=== PATIENT | male | born 1950 | race African-American/Black ===

== ENCOUNTER → 2016-06-21 | Outpatient (CLI) | payer MEDICARE, MEDICAID ==
[2016-06-21 09:41] LABS: HEMATOCRIT 41.5 % (37.9-51.0); HEMOGLOBIN 13.5 g/dL (13.5-17.0); MEAN CORPUSCULAR HEMOGLOBIN 26.7 pg (27.0-33.4); MEAN CORPUSCULAR HGB CONC 32.5 g/dL (32.0-36.0); MEAN CORPUSCULAR VOLUME 82 fl (80-97); RED BLOOD COUNT 5.04 10^6/uL (4.35-5.55); RED CELL DISTRIBUTION WIDTH 14.8 % (11.5-14.0); WHITE BLOOD COUNT 6.2 10^3/uL (4.0-10.5)
[2016-06-21 10:04] LABS: ALBUMIN 4.3 g/dL (3.5-5.0); ANION GAP 14 (5-19); BLOOD UREA NITROGEN 21 mg/dL (7-20); CALCIUM 10.2 mg/dL (8.4-10.2); CARBON DIOXIDE 22 mmol/L (22-30); CHLORIDE 107 mmol/L (98-107); CREATININE RESULT 1.34 mg/dL (0.52-1.25); GLUCOSE 116 mg/dL (75-110); PHOSPHORUS 4.7 mg/dL (2.5-4.5); POTASSIUM 4.4 mmol/L (3.6-5.0); SODIUM 142.6 mmol/L (137-145)
== END ==
LOC: OD 08:42
PROVIDERS: ATTEND Internal Medicine Nephrology
DX: Z94.0 Kidney transplant status (principal); I10 Essential (primary) hypertension; Z79.899 Other long term (current) drug therapy
CPT/HCPCS: 36415; 80069; 80158; 85027

== ENCOUNTER → 2016-10-04 | Outpatient (CLI) | payer MEDICARE, MEDICAID ==
[2016-10-04 11:16] LABS: HEMATOCRIT 38.4 % (37.9-51.0); HEMOGLOBIN 12.3 g/dL (13.5-17.0); HGB HCT DIFFERENCE -1.5; MEAN CORPUSCULAR HEMOGLOBIN 26.2 pg (27.0-33.4); MEAN CORPUSCULAR HGB CONC 31.9 g/dL (32.0-36.0); MEAN CORPUSCULAR VOLUME 82 fl (80-97); RED BLOOD COUNT 4.68 10^6/uL (4.35-5.55); RED CELL DISTRIBUTION WIDTH 15.2 % (11.5-14.0); WHITE BLOOD COUNT 7.1 10^3/uL (4.0-10.5)
[2016-10-04 11:31] LABS: ALBUMIN 4.2 g/dL (3.5-5.0); ANION GAP 12 (5-19); BLOOD UREA NITROGEN 21 mg/dL (7-20); CALCIUM 10.1 mg/dL (8.4-10.2); CARBON DIOXIDE 21 mmol/L (22-30); CHLORIDE 110 mmol/L (98-107); CREATININE RESULT 1.47 mg/dL (0.52-1.25); GLUCOSE 126 mg/dL (75-110); PHOSPHORUS 4.5 mg/dL (2.5-4.5); POTASSIUM 4.6 mmol/L (3.6-5.0); SODIUM 143.1 mmol/L (137-145)
== END ==
LOC: OD 09:56
PROVIDERS: ATTEND Internal Medicine Nephrology
DX: Z94.0 Kidney transplant status (principal); I10 Essential (primary) hypertension; Z79.899 Other long term (current) drug therapy
CPT/HCPCS: 36415; 80069; 80158; 85027

== ENCOUNTER → 2016-11-05 | Outpatient (CLI) | payer MEDICARE, MEDICAID ==
[2016-11-05 10:45] LABS: ANION GAP 14 (5-19); BLOOD UREA NITROGEN 23 mg/dL (7-20); CALCIUM 10.4 mg/dL (8.4-10.2); CARBON DIOXIDE 17 mmol/L (22-30); CHLORIDE 114 mmol/L (98-107); CREATININE RESULT 2.17 mg/dL (0.52-1.25); GLUCOSE 119 mg/dL (75-110); MAGNESIUM 1.9 mg/dL (1.6-2.3); POTASSIUM 5.3 mmol/L (3.6-5.0); SODIUM 144.9 mmol/L (137-145)
[2016-11-05 11:09] LABS: URINE CREATININE 37.3 mg/dL (22-328); URINE PROTEIN 19.6 mg/dL (<12)
== END ==
LOC: OD 09:31
PROVIDERS: ATTEND Internal Medicine Nephrology
DX: I12.9 Hypertensive chronic kidney disease with stage 1 through stage 4 chronic kidney disease, or unspecified chronic kidney disease (principal); N18.3 Chronic kidney disease, stage 3 (moderate); Z94.0 Kidney transplant status
CPT/HCPCS: 36415; 80048; 82570; 83735; 84156

== ENCOUNTER → 2016-11-22 | Outpatient (CLI) | payer MEDICARE, MEDICAID ==
[2016-11-22 10:48] LABS: URINE CREATININE 56.2 mg/dL (22-328); URINE PROTEIN 42.7 mg/dL (<12)
--- NOTE | 2016-11-22 16:18 | RADIOLOGY REPORT (SQ) ---
EXAM DESCRIPTION: U/S RETROPERITON (RENAL/AORTA) COMPLETED DATE/TIME: 11/22/2016 3:18 pm REASON FOR STUDY: KIDNEY TRANSPLANT STATUS Z94.0 KIDNEY TRANSPLANT STATUS N18.3 CHRONIC KIDNEY DIS EASE, STAGE 3 (MODERATE) COMPARISON: None. TECHNIQUE: Dynamic and static grayscale images acquired of the kidneys and bladder and recorded on P ACS. Additional selected color Doppler and spectral images recorded. LIMITATIONS: None. FINDINGS: RIGHT KIDNEY: 7.9 cm. Multiple cysts. The largest measures 33 mm. LEFT KIDNEY: 16 cm. Multiple cysts. BLADDER: The urinary bladder is distended, measuring 13 by 16 x 11 cm. The postvoid bladder was unch anged. OTHER FINDINGS: There is a transplanted kidney in the left side of the pelvis with normal arterial bl ood flow. There is pelvicaliectasis both before and after attempted voiding. IMPRESSION: 1. Polycystic kidney disease in the [place] kidneys. 2. Transplant kidney shows normal blood flow. There is pelvicaliectasis felt to be secondary to the marked bladder distention. 3. The bladder was distended and shows no change after an attempt to void. TECHNICAL DOCUMENTATION: JOB ID: [id number] [employer]- All Rights Reserved
== END ==
LOC: RAD 08:56
PROVIDERS: ATTEND Internal Medicine Nephrology
DX: Z94.0 Kidney transplant status (principal); N18.3 Chronic kidney disease, stage 3 (moderate)
CPT/HCPCS: 76770; 82570; 84156

== ENCOUNTER → 2017-01-24 | Outpatient (CLI) | payer MEDICARE, MEDICAID ==
[2017-01-24 09:41] LABS: ABSOLUTE MONOCYTES (AUTO) 0.4 10^3/uL (0.1-1.4); ABSOLUTE NEUT (AUTO) 4.2 10^3/uL (1.7-8.2); BASOPHILS % (AUTO) 0.3 % (0-2); EOSINOPHILS % (AUTO) 0.6 % (0-6); HEMATOCRIT 34.7 % (37.9-51.0); HEMOGLOBIN 11.3 g/dL (13.5-17.0); HGB HCT DIFFERENCE -0.8; LYMPHOCYTES % (AUTO) 17.9 % (13-45); MEAN CORPUSCULAR HGB CONC 32.6 g/dL (32.0-36.0); MEAN CORPUSCULAR VOLUME 83 fl (80-97); MONOCYTES % (AUTO) 6.6 % (3-13); RED BLOOD COUNT 4.19 10^6/uL (4.35-5.55); RED CELL DISTRIBUTION WIDTH 16.4 % (11.5-14.0); SEGMENTED NEUTROPHILS % (AUTO) 74.6 % (42-78); WHITE BLOOD COUNT 5.6 10^3/uL (4.0-10.5)
[2017-01-24 10:08] LABS: ALANINE AMINOTRANSFERASE 16 U/L (21-72); ALBUMIN 4.3 g/dL (3.5-5.0); ALKALINE PHOSPHATASE 65 U/L (38-126); ANION GAP 14 (5-19); ASPARTATE AMINO TRANSFERASE 18 U/L (17-59); BILIRUBIN,DIRECT 0.4 mg/dL (0.0-0.4); BILIRUBIN,TOTAL 0.7 mg/dL (0.2-1.3); BLOOD UREA NITROGEN 24 mg/dL (7-20); CALCIUM 10.3 mg/dL (8.4-10.2); CARBON DIOXIDE 20 mmol/L (22-30); CHLORIDE 111 mmol/L (98-107); CHOLESTEROL 149.84 mg/dL (0-200); CREATININE RESULT 1.53 mg/dL (0.52-1.25); Direct HDL 61 mg/dL (>40); GLUCOSE 102 mg/dL (75-110); MAGNESIUM 1.8 mg/dL (1.6-2.3); POTASSIUM 4.8 mmol/L (3.6-5.0); TOTAL PROTEIN 7.3 g/dL (6.3-8.2); TRIGLYCERIDES 86 mg/dL (<150)
[2017-01-24 10:20] LABS: DIRECT LDL 62 mg/dL (<100)
== END ==
LOC: OD 08:30
PROVIDERS: ATTEND Family Medicine Geriatric Medicine
DX: I10 Essential (primary) hypertension (principal); N19 Unspecified kidney failure; E78.5 Hyperlipidemia, unspecified; Z79.899 Other long term (current) drug therapy; Z94.0 Kidney transplant status
CPT/HCPCS: 36415; 80053; 80061; 82306; 83735; 84443; 85025

== ENCOUNTER 2017-03-08 09:15 | Observation (INO) | payer MEDICARE, MEDICAID ==
--- NOTE | 2017-03-08 09:51 | ER Document Report ---
ED Hand/Wrist Injury - General Chief Complaint: Hand Pain Stated Complaint: FALL/HAND INJURY Time Seen by Provider: 03/08/17 09:32 Mode of Arrival: Ambulatory Information source: Patient Notes: 66-year-old male presents to ED for redness and swelling to the right hand, swelling to the right elbow, and a history of a fall about 10-11 days ago when he landed on his elbow. He states he has not been to the doctor since he fell. States he has been taken Tylenol with no relief. He does have a history of renal failure polycystic kidney disease he was on dialysis until he had a kidney transplant. He is also had 2 fractured hips with a left hip replacement and neuropathy. TRAVEL OUTSIDE OF THE [place] IN LAST 30 DAYS: No - HPI Injury to: Arm, Elbow, Hand Onset: Other - 1-1/2 weeks Where: Home Timing: Worse Severity: Severe Pain Level: 5 Context: Fall, Swelling - Related Data Allergies/Adverse Reactions: povidone-iodine [From Betadine] Adverse Reaction (Verified 03/08/17 09:52) soap [From Betadine] Adverse Reaction (Verified 03/08/17 09:52) Home Medications: Current Home Medications Atorvastatin Calcium [Lipitor 20 mg Tablet] 20 mg PO QHS 03/08/17 [History] Benazepril HCl [Lotensin 20 mg Tablet] 20 mg PO Q12 03/08/17 [History] Clonidine HCl [Catapres 0.3 mg Tablet] 0.3 mg PO Q12 03/08/17 [History] Cyclosporine, Modified [Cyclosporine Modified] 25 mg PO DAILY 03/08/17 [History] Cyclosporine, Modified [Cyclosporine Modified] 100 mg PO Q12 03/08/17 [History] Multivitamin [Tab-A-Vilma (Multiple Vitamin) Tablet] 1 tab PO DAILY 03/08/17 [ History] Mycophenolate Mofetil [Cellcept 250 mg Capsule] 1,000 mg PO Q12 03/08/17 [ History] Nifedipine [Nifedipine ER] 60 mg PO Q12 03/08/17 [History] Potassium Chloride [Klor-Con 10 Meq Tablet.sa] 40 meq PO Q12 03/08/17 [History] Prednisone [Deltasone 5 mg Tablet] 5 mg PO DAILY 03/08/17 [History] Past Medical History - General Information source: Patient - Social History Smoking Status: Former Smoker Cigarette use (# per day): No Chew tobacco use (# tins/day): No Smoking Education Provided: No Frequency of alcohol use: None Drug Abuse: None Lives with: Alone Family History: Arthritis, CAD, Hyperlipidemia, Hypertension, Malignancy. denies: COPD, CVA, DM, Thyroid Disfunction Patient has suicidal ideation: No Patient has homicidal ideation: No - Past Medical History Cardiac Medical History: Reports: Hx Hypercholesterolemia, Hx Hypertension Pulmonary Medical History: Reports: None EENT Medical History: Reports: None Neurological Medical History: Reports: Other - Peripheral neuropathy Endocrine Medical History: Reports: None Renal/ Medical History: Reports: Hx End Stage Renal Disease, Other - Polycystic kidney disease, kidney transplant Malignancy Medical History: Reports None GI Medical History: Reports: Hx Gastroesophageal Reflux Disease, Hx Hiatal Hernia Musculoskeltal Medical History: Reports Hx Arthritis, Reports Hx Musculoskeletal Deformity, Reports Hx Musculoskeletal Trauma Skin Medical History: Reports None Psychiatric Medical History: Reports: None Traumatic Medical History: Reports: Hx Fractures - Bilateral hips right hand and skull Infectious Medical History: Reports: None Past Surgical History: Reports: Hx Inguinal Hernia - Bilateral at different times, Hx Kidney (Renal Surgery) - TRANSPLANT, Hx Vascular Surgery - Dialysis shunt and fistula before his kidney transplant - Immunizations Hx Diphtheria, Pertussis, Tetanus Vaccination: Yes Review of Systems - Review of Systems Constitutional: No symptoms reported EENT: No symptoms reported Cardiovascular: No symptoms reported Respiratory: No symptoms reported Gastrointestinal: No symptoms reported Genitourinary: No symptoms reported Male Genitourinary: No symptoms reported Musculoskeletal: Other - Right arm elbow and hand swollen right hand red and warm Skin: Other - Right hand red swollen warm Hematologic/Lymphatic: No symptoms reported Neurological/Psychological: No symptoms reported Physical Exam - Vital signs Vitals: Temp Pulse Resp BP Pulse Ox 97.7 F 115 H 18 169/91 H 98 03/08/17 09:20 03/08/17 09:20 03/08/17 09:20 03/08/17 09:20 03/08/17 09:20 Interpretation: Normal - General General appearance: Appears well, Alert - HEENT Head: Normocephalic, Atraumatic Eyes: Normal Pupils: PERRL - Respiratory Respiratory status: No respiratory distress Chest status: Nontender Breath sounds: Normal Chest palpation: Normal - Cardiovascular Rhythm: Regular Heart sounds: Normal auscultation Murmur: No - Abdominal Inspection: Normal Distension: No distension Bowel sounds: Normal Tenderness: Nontender Organomegaly: No organomegaly - Back Back: Normal, Nontender - Extremities General lower extremity: Normal inspection, Nontender, Normal color, Normal ROM , Normal temperature, Normal weight bearing. No: Saranya's sign Elbow: Tender, Other - Edema Forearm: Tender, Other - Edema Wrist: Tender, Other - Edema Hand: Tender, Ecchymosis, No evidence of human bite, No evidence of FB, Swelling , Other - Erythema and warmth - Neurological Neuro grossly intact: Yes Cognition: Normal Orientation: AAOx4 [place] Coma Scale Eye Opening: Spontaneous [place] Coma Scale Verbal: Oriented [place] Coma Scale Motor: Obeys Commands [place] Coma Scale Total: 15 Speech: Normal Motor strength normal: LUE, RUE, LLE, RLE Sensory: Normal - Psychological Associated symptoms: Normal affect, Normal mood - Skin Skin Temperature: Warm Skin Moisture: Dry Skin Color: Normal Course - Re-evaluation Re-evalutation: 03/08/17 14:[address] Proctor for admission due to hyperkalemia. He requested that the patient's humanities instructor be consulted before he admits them as we do not have nephrology button cutting machine operator. 03/08/17 14:[address] Marc Hurd nephrology and [place] who stated that the patient would be fine to be admitted to [place] as long as he was kept on his medications that he currently takes except for the potassium. Patient has been instructed to stop the potassium. Consulted Dr. carpio for admissions for hyperkalemia. She will evaluate the patient. Patient's humanities instructor was requested to send a list of patient's current medications for use in the hospital. He agreed to fax a copy to the hospital and he was given the fax # [phone]. - Vital Signs Vital signs: Temp Pulse Resp BP Pulse Ox 97.7 F 115 H 22 H 173/104 H 99 03/08/17 09:20 03/08/17 09:20 03/08/17 17:02 03/08/17 17:02 03/08/17 17:02 - Laboratory Result Diagrams: 03/08/17 10:26 03/08/17 11:26 Laboratory results interpreted by me: 03/08/17 03/08/17 03/08/17 10:26 10:26 11:26 RBC 3.91 L Hgb 10.4 L Hct 32.4 L MCH 26.5 L RDW 14.7 H Seg Neuts % (Manual) 91 H Lymphocytes % (Manual) 4 L Abs Lymphs (Manual) 0.4 L Sodium 146.7 H Potassium 6.6 H* 7.1 H* Chloride 112 H BUN 26 H Creatinine 1.69 H Est GFR ( Amer) 49 L Est GFR (Non-Af Amer) 41 L Glucose 166 H POC Glucose Direct Bilirubin 0.5 H 03/08/17 13:51 RBC Hgb Hct MCH RDW Seg Neuts % (Manual) Lymphocytes % (Manual) Abs Lymphs (Manual) Sodium Potassium Chloride BUN Creatinine Est GFR ( Amer) Est GFR (Non-Af Amer) Glucose POC Glucose 62 L Direct Bilirubin - Consults [facility] Time consulted: 14:35 Reason for consultation: 03/08/17 14:35 hyperkalemia Consulted provider: will come to ER Discharge - Discharge Clinical Impression: Hyperkalemia Disposition: ADMITTED OBSERVATION Admitting Provider: Hospitalist - [facility] Unit Admitted: Telemetry
[2017-03-08] MEDS ORDERED: OXYCODONE-ACETAMINOPHEN 5-325 MG TABLET PO ONE (10:05)
--- NOTE | 2017-03-08 10:26 | RADIOLOGY REPORT (SQ) ---
EXAM DESCRIPTION: HAND RIGHT 3 VIEWS COMPLETED DATE/TIME: 03/08/2017 10:02 am REASON FOR STUDY: pain and swelling COMPARISON: None. EXAM PARAMETERS: NUMBER OF VIEWS: Three views. TECHNIQUE: AP, lateral and oblique radiographic images acquired of the right hand. LIMITATIONS: None. FINDINGS: MINERALIZATION: Normal. BONES: No acute fracture or dislocation. No worrisome bone lesions. JOINTS: No effusions. SOFT TISSUES: No soft tissue swelling. No foreign body. Vascular calcifications. Faint soft tissue calcifications. OTHER: No other significant finding. IMPRESSION: CHRONIC CHANGES. NO RADIOGRAPHIC EVIDENCE OF ACUTE INJURY. TECHNICAL DOCUMENTATION: JOB ID: [id number] [employer]- All Rights Reserved
--- NOTE | 2017-03-08 10:28 | RADIOLOGY REPORT (SQ) ---
EXAM DESCRIPTION: ELBOW RIGHT OVER 2 VIEWS COMPLETED DATE/TIME: 03/08/2017 10:02 am REASON FOR STUDY: pain and swelling COMPARISON: None. NUMBER OF VIEWS: Four views. TECHNIQUE: AP, lateral, and both oblique radiographic images acquired of the right elbow. LIMITATIONS: None. FINDINGS: MINERALIZATION: Normal. BONES: No acute fracture or dislocation. Degenerative changes with small osteophytes. Supracondylar spur. No worrisome bone lesions. JOINT: No effusion. SOFT TISSUES: No soft tissue swelling. No foreign body. Faint soft tissue calcifications. OTHER: No other significant finding. IMPRESSION: MILD CHRONIC CHANGES. NO RADIOGRAPHIC EVIDENCE OF ACUTE INJURY. TECHNICAL DOCUMENTATION: JOB ID: [id number] [employer]- All Rights Reserved
[2017-03-08 10:45] LABS: HEMATOCRIT 32.4 % (37.9-51.0); HEMOGLOBIN 10.4 g/dL (13.5-17.0); HGB HCT DIFFERENCE -1.2; MEAN CORPUSCULAR HEMOGLOBIN 26.5 pg (27.0-33.4); MEAN CORPUSCULAR HGB CONC 32.1 g/dL (32.0-36.0); MEAN CORPUSCULAR VOLUME 83 fl (80-97); RED BLOOD COUNT 3.91 10^6/uL (4.35-5.55); RED CELL DISTRIBUTION WIDTH 14.7 % (11.5-14.0); WHITE BLOOD COUNT 8.9 10^3/uL (4.0-10.5)
[2017-03-08 10:56] LABS: ANION GAP 13 (5-19); BLOOD UREA NITROGEN 26 mg/dL (7-20); CALCIUM 10.1 mg/dL (8.4-10.2); CARBON DIOXIDE 22 mmol/L (22-30); CHLORIDE 112 mmol/L (98-107); CREATININE RESULT 1.69 mg/dL (0.52-1.25); GLUCOSE 166 mg/dL (75-110); SODIUM 146.7 mmol/L (137-145); URIC ACID 6.3 mg/dL (3.5-8.5)
[2017-03-08 11:00] LABS: POTASSIUM 6.6 mmol/L (3.6-5.0)
[2017-03-08] MEDS ORDERED: SODIUM POLYSTYRENE SULFONATE 15 GM/60 ML PO ONE ×3 (11:05→19:05)
[2017-03-08 11:12] LABS: BASOPHILS % (MANUAL) 0 % (0-2); EOSINOPHILS % (MANUAL) 0 % (0-6); LYMPHOCYTES % (MANUAL) 4 % (13-45); TOTAL CELLS COUNTED 100
[2017-03-08 11:13] LABS: ANISOCYTOSIS SLIGHT; TOXIC GRANULATION 1+
[2017-03-08] MEDS ORDERED: NORMAL SALINE 1000 ML 1,000 ML IV ONE (11:28)
[2017-03-08 11:57] LABS: ALANINE AMINOTRANSFERASE 21 U/L (21-72); ALBUMIN 3.6 g/dL (3.5-5.0); ALKALINE PHOSPHATASE 58 U/L (38-126); ASPARTATE AMINO TRANSFERASE 31 U/L (17-59); BILIRUBIN,DIRECT 0.5 mg/dL (0.0-0.4); BILIRUBIN,TOTAL 0.5 mg/dL (0.2-1.3); CREATINE KINASE 68 U/L (55-170); TOTAL PROTEIN 7.1 g/dL (6.3-8.2)
[2017-03-08 12:01] LABS: POTASSIUM 7.1 mmol/L (3.6-5.0)
[2017-03-08] MEDS ORDERED: INSULIN REG, HUMAN 100 UNIT/ML 3 ML VIAL (PYX) IV ONE ×2 (12:04→19:05)
[2017-03-08] MEDS ORDERED: CALCIUM GLUCONATE 1000 MG/10 ML INJ IV ONE (12:04)
[2017-03-08] MEDS ORDERED: DEXTROSE 50%-WATER 25 GM/50 ML DISP.SYRIN IV ONE (12:04)
[2017-03-08 12:09] LABS: CREATINE KINASE MB 1.81 ng/mL (<4.55); TROPONIN I 0.022 ng/mL
[2017-03-08] MEDS ORDERED: 1/2 NORMAL SALINE 1,000 ML IV PRN (14:46)
[2017-03-08] MEDS ORDERED: ACETAMINOPHEN 325 MG TABLET PO PRN (15:31)
[2017-03-08] MEDS ORDERED: DEXTROSE 5%-1/2 NORMAL SALINE 1,000 ML IV PRN (15:38)
--- NOTE | 2017-03-08 16:00 | PDOC H&P ---
History of Present Illness Admission Date/PCP: CHEYANNE ELKINS MD Patient complains of: Right hand pain History of Present Illness: DASHAWN SALEH is a 66 year old male with a history of polycystic kidney disease status post renal transplant 21 years ago at [facility] now followed at [facility]. Patient presented with a complaint of 2 weeks of right hand pain and swelling. Patient states that this happens from time to time but normally comes down. X-rays did not show any acute injury. However upon reviewing of his labs which were taken to look for elevated uric acid patient was found to have a potassium greater than 7. On further questioning patient was placed on potassium supplementation by his insulation supervisor. Patient insulation supervisor was contacted prior to patient being admitted. Stated that patient just needs to be observed overnight while his potassium was brought down to a normal level. In the ED patient was given dextrose insulin calcium gluconate and Kayexalate. Hospitalist service was called to bring the patient in for observation to correct his hyperkalemia. Past Medical History Cardiac Medical History: Reports: Hyperlipidema, Hypertension Pulmonary Medical History: Reports: None Denies: Tuberculosis EENT Medical History: Reports: None Neurological Medical History: Reports: Other - Peripheral neuropathy Denies: Seizures Endocrine Medical History: Reports: None Renal/ Medical History: Reports: End Stage Renal Disease, Other - Polycystic kidney disease, kidney transplant Malignancy Medical History: Reports: None GI Medical History: Reports: Gastroesophageal Reflux Disease, Hiatal Hernia Musculoskeltal Medical History: Reports: Arthritis Skin Medical History: Reports: None Psychiatric Medical History: Reports: None Denies: Depression Infectious Medical History: Reports: None Past Surgical History Past Surgical History: Reports: Orthopedic Surgery - left hip replacement, Vascular Surgery - Dialysis shunt and fistula before his kidney transplant Social History Lives with: Alone Smoking Status: Former Smoker Frequency of Alcohol Use: None Hx Recreational Drug Use: No Hx Prescription Drug Abuse: No - Advance Directive Resuscitation Status: Full Code Family History Family History: Arthritis, CAD, Hyperlipidemia, Hypertension, Malignancy. denies: COPD, CVA, DM, Thyroid Disfunction Parental Family History Reviewed: Yes Children Family History Reviewed: No Sibling(s) Family History Reviewed.: Yes Medication/Allergy Home Medications: Atorvastatin Calcium [Lipitor 20 mg Tablet] 20 mg PO QHS 03/08/17 Benazepril HCl [Lotensin 20 mg Tablet] 20 mg PO Q12 03/08/17 Clonidine HCl [Catapres 0.3 mg Tablet] 0.3 mg PO Q12 03/08/17 Cyclosporine, Modified [Cyclosporine Modified] 25 mg PO DAILY 03/08/17 Cyclosporine, Modified [Cyclosporine Modified] 100 mg PO Q12 03/08/17 Multivitamin [Tab-A-Vilma (Multiple Vitamin) Tablet] 1 tab PO DAILY 03/08/17 Mycophenolate Mofetil [Cellcept 250 mg Capsule] 1,000 mg PO Q12 03/08/17 Nifedipine [Nifedipine ER] 60 mg PO Q12 03/08/17 Potassium Chloride [Klor-Con 10 Meq Tablet.sa] 40 meq PO Q12 03/08/17 Prednisone [Deltasone 5 mg Tablet] 5 mg PO DAILY 03/08/17 Allergies/Adverse Reactions: povidone-iodine [From Betadine] Adverse Reaction (Verified 03/08/17 09:52) soap [From Betadine] Adverse Reaction (Verified 03/08/17 09:52) Review of Systems Constitutional: ABSENT: chills, fever(s), headache(s), weight gain, weight loss Eyes: ABSENT: visual disturbances Ears: ABSENT: hearing changes Cardiovascular: ABSENT: chest pain, dyspnea on exertion, edema, orthropnea, palpitations Respiratory: ABSENT: cough, hemoptysis Gastrointestinal: ABSENT: abdominal pain, constipation, diarrhea, hematemesis, hematochezia, nausea, vomiting Genitourinary: ABSENT: dysuria, hematuria Musculoskeletal: PRESENT: joint swelling - Hand swelling Integumentary: ABSENT: rash, wounds Neurological: ABSENT: abnormal gait, abnormal speech, confusion, dizziness, focal weakness, syncope Psychiatric: ABSENT: anxiety, depression, homidical ideation, suicidal ideation Endocrine: ABSENT: cold intolerance, heat intolerance, polydipsia, polyuria Hematologic/Lymphatic: ABSENT: easy bleeding, easy bruising Physical Exam Vital Signs: Temp Pulse Resp BP Pulse Ox 97.7 F 115 H 18 169/91 H 98 03/08/17 09:20 03/08/17 09:20 03/08/17 09:20 03/08/17 09:20 03/08/17 09:20 Intake & Output 03/07/17 03/08/17 03/09/17 06:59 06:59 06:59 Weight 83.1 kg General appearance: PRESENT: no acute distress, well-developed, well-nourished Head exam: PRESENT: normocephalic Eye exam: PRESENT: EOMI. ABSENT: scleral icterus Ear exam: PRESENT: normal external ear exam Mouth exam: PRESENT: moist Neck exam: ABSENT: carotid bruit, JVD, lymphadenopathy, thyromegaly Respiratory exam: PRESENT: clear to auscultation massiel. ABSENT: rales, rhonchi, wheezes Cardiovascular exam: PRESENT: RRR. ABSENT: diastolic murmur, rubs, systolic murmur Pulses: PRESENT: normal dorsalis pedis pul Vascular exam: PRESENT: normal capillary refill GI/Abdominal exam: PRESENT: normal bowel sounds, soft. ABSENT: distended, guarding, mass, organolmegaly, rebound, tenderness Rectal exam: PRESENT: deferred Extremities exam: PRESENT: full ROM, other - Right hand swelling. With erythema of the wrist joint and the middle finger. PIP and DIP area. ABSENT: calf tenderness, clubbing, pedal edema Neurological exam: PRESENT: alert, awake, oriented to person, oriented to place , oriented to time, oriented to situation, CN II-XII grossly intact. ABSENT: motor sensory deficit Psychiatric exam: PRESENT: appropriate affect, normal mood. ABSENT: homicidal ideation, suicidal ideation Skin exam: PRESENT: dry, intact, warm. ABSENT: cyanosis, rash Results Laboratory Results: 03/08/17 10:26 03/08/17 11:26 03/08/17 03/08/17 03/08/17 10:26 10:26 11:26 WBC 8.9 RBC 3.91 L Hgb 10.4 L Hct 32.4 L MCV 83 MCH 26.5 L MCHC 32.1 RDW 14.7 H Plt Count 195 Seg Neutrophils % Not Reportable Lymphocytes % Not Reportable Monocytes % Not Reportable Eosinophils % Not Reportable Basophils % Not Reportable Absolute Neutrophils Not Reportable Absolute Lymphocytes Not Reportable Absolute Monocytes Not Reportable Absolute Eosinophils Not Reportable Absolute Basophils Not Reportable Sodium 146.7 H Potassium 6.6 H* 7.1 H* Chloride 112 H Carbon Dioxide 22 Anion Gap 13 BUN 26 H Creatinine 1.69 H Est GFR ( Amer) 49 L Est GFR (Non-Af Amer) 41 L Glucose 166 H Uric Acid 6.3 Calcium 10.1 Total Bilirubin 0.5 AST 31 ALT 21 Alkaline Phosphatase 58 Total Protein 7.1 Albumin 3.6 03/08/17 03/08/17 11:26 11:26 Creatine Kinase 68 CK-MB (CK-2) 1.81 Troponin I 0.022 Impressions: Elbow X-Ray 03/08/17 09:44 IMPRESSION: MILD CHRONIC CHANGES. NO RADIOGRAPHIC EVIDENCE OF ACUTE INJURY. Hand X-Ray 03/08/17 09:44 IMPRESSION: CHRONIC CHANGES. NO RADIOGRAPHIC EVIDENCE OF ACUTE INJURY. Assessment & Plan - Diagnosis (1) Hyperkalemia Is this a current diagnosis for this admission?: Yes Plan: Hypokalemia most likely due to patient taking oral supplement. Patient given 60 mg of Kayexalate total. Patient also given calcium gluconate along with insulin. Patient will be ON telemetry. Will repeat potassium level later on today. Patient is no longer to take potassium supplementation. (2) Renal transplant recipient Is this a current diagnosis for this admission?: Yes Plan: Continue patient antirejection medications. Patient insulation supervisor was contacted prior to being placed in observation. Her his insulation supervisor that is acceptable for patient to be honest overnight to make sure the potassium is coming back down to normal. He states that it is not necessary for patient to go where he can receive dialysis as we do not have a insulation supervisor on staff at this time. (3) Hypertension Qualifiers: Hypertension type: essential hypertension Qualified Code(s): I10 - Essential (primary) hypertension Is this a current diagnosis for this admission?: Yes Plan: Continue patient home medications with the exception of lisinopril as this can cause hyperkalemia. (4) Hypernatremia Is this a current diagnosis for this admission?: Yes Plan: Possibly due to the use of Lasix. Patient is currently on D5 half-normal saline at 100 cc/h we will follow-up electrolytes later on today. Repeat BMP in the morning. (5) Hand swelling Qualifiers: Laterality: right Qualified Code(s): M79.89 - Other specified soft tissue disorders Is this a current diagnosis for this admission?: Yes Plan: 3 of the head showed no acute injury however there is obvious swelling of the hand. The erythema is concerning for possible gouty arthropathy. Patient uric acid is normal however there does not is glued gout. Patient will be placed on a higher dose of prednisone than he normally takes for his antirejection regimen. Unable to give NSAIDs due to patient's renal transplant in addition cannot give colchicine as it interacts with his antirejection medications. - Time Time Spent: 30 to 50 Minutes Medications reviewed and adjusted accordingly: Yes Within: within 24 hours - Patient has to be hospitalized and monitored as patient potassium can put him in danger of sudden cardiac arrest or arrhythmias. Patient is going to be monitored overnight on telemetry to make sure the potassium is trending down.
[2017-03-08] MEDS ORDERED: INFLUENZA ADLT QUAD (36MOS+) 2017-18 VAC 0.5 ML SYR IM PRN (18:00)
[2017-03-08 18:36] LABS: ANION GAP 13 (5-19); BLOOD UREA NITROGEN 25 mg/dL (7-20); CALCIUM 9.8 mg/dL (8.4-10.2); CARBON DIOXIDE 23 mmol/L (22-30); CHLORIDE 113 mmol/L (98-107); CREATININE RESULT 1.62 mg/dL (0.52-1.25); GLUCOSE 175 mg/dL (75-110); SODIUM 149.2 mmol/L (137-145)
[2017-03-08 18:52] LABS: POTASSIUM 5.9 mmol/L (3.6-5.0)
[2017-03-08] MEDS: CLONIDINE HCL 0.1 MG TABLET PO SCH (21:53)
[2017-03-08] MEDS: NIFEDIPINE 30 MG TAB.ER.24 PO SCH (21:53)
[2017-03-08] MEDS: MYCOPHENOLATE MOFETIL 250 MG CAPSULE PO SCH (21:54)
[2017-03-08] MEDS ORDERED: (PENDING PHARMACY ID) (Clonidine Hcl [Catapres 0.3 Mg Tablet] 0.3 MG) PO SCH (22:00)
[2017-03-08] MEDS ORDERED: ATORVASTATIN CALCIUM 20 MG TABLET PO SCH (22:00)
[2017-03-08] MEDS ORDERED: (PENDING PHARMACY ID) (Nifedipine [Nifedipine Er] 60 MG) PO SCH (22:00)
[2017-03-08] MEDS: CYCLOSPORINE MODIFIED 100 MG PO SCH (22:00)
[2017-03-08] MEDS ORDERED: CALCIUM CARBONATE 500 MG TAB.CHEW PO PRN (23:13)
[2017-03-08] MEDS: OXYCODONE-ACETAMINOPHEN 5-325 MG TABLET PO PRN (23:24)
[2017-03-09] MEDS ORDERED: HYDRALAZINE HCL INJ/PF 20 MG/1 ML SDV IV PRN (00:05)
[2017-03-09] MEDS: OXYCODONE-ACETAMINOPHEN 5-325 MG TABLET PO PRN ×2 (05:39→09:40)
[2017-03-09 05:56] LABS: ANION GAP 14 (5-19); BLOOD UREA NITROGEN 20 mg/dL (7-20); CALCIUM 9.4 mg/dL (8.4-10.2); CARBON DIOXIDE 19 mmol/L (22-30); CHLORIDE 113 mmol/L (98-107); CREATININE RESULT 1.43 mg/dL (0.52-1.25); GLUCOSE 97 mg/dL (75-110); SODIUM 145.8 mmol/L (137-145)
[2017-03-09 06:27] LABS: POTASSIUM 4.5 mmol/L (3.6-5.0)
[2017-03-09 08:31] VITALS: BP 169/84
[2017-03-09] MEDS ORDERED: COLCHICINE 0.6 MG TABLET PO ONE (09:00)
[2017-03-09] MEDS: CLONIDINE HCL 0.1 MG TABLET PO SCH (09:39)
[2017-03-09] MEDS: NIFEDIPINE 30 MG TAB.ER.24 PO SCH (09:41)
[2017-03-09] MEDS: MYCOPHENOLATE MOFETIL 250 MG CAPSULE PO SCH (09:44)
[2017-03-09] MEDS: CYCLOSPORINE MODIFIED 100 MG PO SCH (09:44)
[2017-03-09] MEDS ORDERED: PREDNISONE 20 MG TABLET PO SCH (10:00)
[2017-03-09] MEDS ORDERED: PREDNISONE 5 MG TABLET PO SCH (10:00)
--- NOTE | 2017-03-09 13:38 | EKG REPORT ---
SEVERITY:- ABNORMAL ECG - SINUS RHYTHM NONSPECIFIC T ABNORMALITIES, ANT-LAT LEADS BORDERLINE ST ELEVATION, ANTERIOR LEADS BORDERLINE PROLONGED QT INTERVAL : Confirmed by: Herman Knight 09-Mar-2017 13:37:54
[2017-03-09] MEDS ORDERED: CLINDAMYCIN 900 MG/D5W RTU 50 ML IV SCH (14:00)
--- NOTE | 2017-03-09 16:07 | PDOC DISCHARGE SUMMARY ---
General - Admit/Disc Date/PCP Admission Date/Primary Care Provider: 03/08/17 15:31 CHEYANNE ELKINS MD Discharge Date: 03/09/17 - Discharge Diagnosis (1) Hyperkalemia Is this a current diagnosis for this admission?: Yes (2) Renal transplant recipient Is this a current diagnosis for this admission?: Yes (3) Hypertension Is this a current diagnosis for this admission?: Yes (4) Hypernatremia Is this a current diagnosis for this admission?: Yes (5) Hand swelling Is this a current diagnosis for this admission?: Yes - Additional Information Resuscitation Status: Full Code Discharge Diet: Regular Discharge Activity: Activity As Tolerated Home Medications: Atorvastatin Calcium [Lipitor 20 mg Tablet] 20 mg PO QHS 03/08/17 Benazepril HCl [Lotensin 20 mg Tablet] 20 mg PO Q12 03/08/17 Clonidine HCl [Catapres 0.3 mg Tablet] 0.3 mg PO Q12 03/08/17 Cyclosporine, Modified [Cyclosporine Modified] 25 mg PO DAILY 03/08/17 Cyclosporine, Modified [Cyclosporine Modified] 100 mg PO Q12 03/08/17 Multivitamin [Tab-A-Vilma (Multiple Vitamin) Tablet] 1 tab PO DAILY 03/08/17 Mycophenolate Mofetil [Cellcept 250 mg Capsule] 1,000 mg PO Q12 03/08/17 Nifedipine [Nifedipine ER] 60 mg PO Q12 03/08/17 Prednisone [Deltasone 5 mg Tablet] 5 mg PO DAILY 03/08/17 Colchicine [Colchicine 0.6 mg Tablet] 0.6 mg PO DAILY 4 Days #4 tablet 03/09/17 Prednisone 20 mg PO DAILY 4 Days #4 tablet 03/09/17 History of Present Illness History of Present Illness: DASHAWN SALEH is a 66 year old male with a history of polycystic kidney disease status post renal transplant 21 years ago at [place] now followed at [facility]. Patient presented with a complaint of 2 weeks of right hand pain and swelling. Patient states that this happens from time to time but normally comes down. X-rays did not show any acute injury. However upon reviewing of his labs which were taken to look for elevated uric acid patient was found to have a potassium greater than 7. On further questioning patient was placed on potassium supplementation by his video effects editor. Patient video effects editor was contacted prior to patient being admitted. Stated that patient just needs to be observed overnight while his potassium was brought down to a normal level. In the ED patient was given dextrose insulin calcium gluconate and Kayexalate. Hospitalist service was called to bring the patient in for observation to correct his hyperkalemia. Hospital Course Hospital Course: (1) Hyperkalemia Hypokalemia most likely due to patient taking oral supplement. Patient given 60 mg of Kayexalate followed by dose at 30 mg. Patient also given calcium gluconate along with insulin. Patient will be ON telemetry. Patient is no longer to take potassium supplementation. Potassium is now 0.5. Patient current labs are be faxed to [facility] fax #[phone]. (2) Renal transplant recipient Continue patient antirejection medications. Patient video effects editor was contacted prior to being placed in observation. Her his video effects editor that is acceptable for patient to be honest overnight to make sure the potassium is coming back down to normal. He states that it is not necessary for patient to go where he can receive dialysis as we do not have a video effects editor on staff at this time. (3) Hypertension Recent resumed on his home medications with the exception of lisinopril as this can cause hypokalemia. Patient can resume this medication on discharge as his potassium level is now 4.5 and patient will no longer be on potassium supplement. (4) Hypernatremia Possibly due to the use of Lasix. Patient is currently on D5 half-normal saline at 100 cc/h. His sodium level is now 145. (5) Hand swelling X-ray of the head showed no acute injury however there is obvious swelling of the hand. The erythema is concerning for possible gouty arthropathy. He received 2 doses of 40 mg of prednisone along with a dose of 1.2 mg of colchicine. Patient showed immediate improvement of the swelling of his middle PIP. Patient be discharged home on colchicine 0.6 mg for 4 more days starting tomorrow along with prednisone 20 mg daily for 4 days. Patient advised that colchicine may cause diarrhea however if the hand does not improve he should complete the course. If the hand is improved he can stop the colchicine. Also explained to them that there may be a interaction with some of his antirejection medications however he did receive a dose here and did fine. (6) CKD stage III Patient's renal function is actually better today. Creatinine is now 1.43 down from 1.62. Creatinine was 1.6 on labs taken from 817 by provider John Luciano MD. Physical Exam Vital Signs: Temp Pulse Resp BP Pulse Ox 98.5 F 96 16 166/90 H 98 03/09/17 08:11 03/09/17 08:11 03/09/17 08:11 03/09/17 08:11 03/09/17 08:11 Intake & Output 03/08/17 03/09/17 03/10/17 06:59 06:59 06:59 Intake Total 550 Balance 550 Weight 82 kg General appearance: PRESENT: no acute distress, well-developed, well-nourished Head exam: PRESENT: normocephalic Eye exam: PRESENT: EOMI. ABSENT: scleral icterus Mouth exam: PRESENT: moist Neck exam: ABSENT: carotid bruit, JVD, lymphadenopathy, thyromegaly Respiratory exam: PRESENT: clear to auscultation massiel. ABSENT: rales, rhonchi, wheezes Cardiovascular exam: PRESENT: RRR. ABSENT: diastolic murmur, rubs, systolic murmur GI/Abdominal exam: PRESENT: normal bowel sounds, soft. ABSENT: distended, guarding, mass, organolmegaly, rebound, tenderness Rectal exam: PRESENT: deferred Extremities exam: PRESENT: full ROM, pedal edema - Trace. ABSENT: calf tenderness, clubbing Musculoskeletal exam: PRESENT: other - Right middle finger PIP joint improve erythema and tenderness and swelling improve motion of the wrist and hand. Neurological exam: PRESENT: alert, awake, oriented to person, oriented to place , oriented to time, oriented to situation, CN II-XII grossly intact. ABSENT: motor sensory deficit Psychiatric exam: PRESENT: appropriate affect, normal mood. ABSENT: homicidal ideation, suicidal ideation Skin exam: PRESENT: dry, intact, warm. ABSENT: cyanosis, rash Results Laboratory Results: 03/09/17 04:09 03/08/17 03/09/17 18:09 04:09 Sodium 149.2 H 145.8 H Potassium 5.9 H D 4.5 D Chloride 113 H 113 H Carbon Dioxide 23 19 L Anion Gap 13 14 BUN 25 H 20 Creatinine 1.62 H 1.43 H Est GFR ( Amer) 52 L > 60 Est GFR (Non-Af Amer) 43 L 49 L Glucose 175 H 97 Calcium 9.8 9.4 Impressions: Elbow X-Ray 03/08/17 09:44 IMPRESSION: MILD CHRONIC CHANGES. NO RADIOGRAPHIC EVIDENCE OF ACUTE INJURY. Hand X-Ray 03/08/17 09:44 IMPRESSION: CHRONIC CHANGES. NO RADIOGRAPHIC EVIDENCE OF ACUTE INJURY. Qualifiers PATEINT BEING DISCHARGED WITH ANY OF THE FOLLOWING DIAGNOSIS?: No Plan Time Spent: Greater than 30 Minutes - Patient is being discharged home to complete his treatment for his gout in his right middle finger PIP joint. Patient to take colchicine 0.6 mg p.o. for 4 more days starting on 03/10/2017. Patient is also taking his prednisone 20 mg in addition to the 5 mg he takes at home. Patient advised that he may have diarrhea on this medication but should continue taking the medication if swelling and erythema of the joint is still present. If the swelling erythema and pain is resolved and patient can stop the medication.
== END 2017-03-09 14:55 | disposition home or self-care (01) ==
LOC: ER 09:15 → EH 15:31 → UNDOADMOB 15:50 → 4N 17:46
PROVIDERS: ADMIT Internal Medicine; ATTEND Internal Medicine
DX: E87.5 Hyperkalemia (principal); Z94.0 Kidney transplant status; I12.9 Hypertensive chronic kidney disease with stage 1 through stage 4 chronic kidney disease, or unspecified chronic kidney disease; N18.3 Chronic kidney disease, stage 3 (moderate); E87.0 Hyperosmolality and hypernatremia; M79.89 Other specified soft tissue disorders; M10.9 Gout, unspecified; G62.9 Polyneuropathy, unspecified; Z79.899 Other long term (current) drug therapy; Z87.891 Personal history of nicotine dependence; Z96.642 Presence of left artificial hip joint; Z82.61 Family history of arthritis; Z87.81 Personal history of (healed) traumatic fracture; Z91.81 History of falling
CPT/HCPCS: 93005; 99285; 96361; 96375; 96365; 96367; 36415 ×2; 82553; 82962; 82550; 84132; 84550; 85025; 80076; 80048 ×2; 84484; 73080; 73130; 93010; G0378 ×3; J0610; A9270 ×12; J3490 ×3; J7502 ×2; J0360; J7030; J1815; J7512; J7517

== ENCOUNTER → 2017-03-20 | Outpatient (CLI) | payer MEDICARE, MEDICAID ==
[2017-03-20 09:32] LABS: URIC ACID 8.5 mg/dL (3.5-8.5)
== END ==
LOC: OD 07:37
PROVIDERS: ATTEND Family Medicine Geriatric Medicine
DX: E78.5 Hyperlipidemia, unspecified (principal); E83.42 Hypomagnesemia; D64.9 Anemia, unspecified; M10.9 Gout, unspecified; N18.9 Chronic kidney disease, unspecified; E16.2 Hypoglycemia, unspecified
CPT/HCPCS: 36415; 82728; 82947; 82950; 83036; 83540; 83550; 84466; 84550; 85045

== ENCOUNTER 2017-04-17 17:13 | Emergency (ER) | payer MEDICARE, MEDICAID ==
--- NOTE | 2017-04-17 17:53 | ER Document Report ---
ED Medical Screen (RME) - General Chief Complaint: Urinary Problem Stated Complaint: BLOOD IN URINE Time Seen by Provider: 04/17/17 17:43 Notes: 66-year-old male patient who had a renal transplant in 1995 for polycystic kidney disease reports onset 1030 last night of dark blood in the urine, it is cable respooler now. There have been some clots noted. There are no symptoms associated with this. I have greeted and performed a rapid initial assessment of this patient. A comprehensive ED assessment and evaluation of the patient, analysis of test results and completion of the medical decision making process will be conducted by additional ED providers. TRAVEL OUTSIDE OF THE [place] IN LAST 30 DAYS: No - Related Data Allergies/Adverse Reactions: povidone-iodine [From Betadine] Adverse Reaction (Verified 03/08/17 09:52) soap [From Betadine] Adverse Reaction (Verified 03/08/17 09:52) Past Medical History - Past Medical History Cardiac Medical History: Reports: Hx Hypercholesterolemia, Hx Hypertension Pulmonary Medical History: Denies: Hx Tuberculosis Neurological Medical History: Denies: Hx Seizures Renal/ Medical History: Reports: Hx End Stage Renal Disease. Denies: Hx Peritoneal Dialysis GI Medical History: Reports: Hx Gastroesophageal Reflux Disease, Hx Hiatal Hernia Musculoskeltal Medical History: Reports Hx Arthritis, Reports Hx Musculoskeletal Deformity, Reports Hx Musculoskeletal Trauma Psychiatric Medical History: Denies: Hx Depression Traumatic Medical History: Reports: Hx Fractures - Bilateral hips right hand and skull Past Surgical History: Reports: Hx Abdominal Surgery - inguinal hernia repair, Hx Inguinal Hernia - Bilateral at different times, Hx Kidney (Renal Surgery) - RENAL TRANSPLANT 1995, Hx Orthopedic Surgery - left hip replacement, Hx Vascular Surgery - Dialysis shunt and fistula before his kidney transplant - Immunizations Hx Diphtheria, Pertussis, Tetanus Vaccination: Yes History of Influenza Vaccine for 02/2017 - 07/2017 Season: No Physical Exam - Vital signs Vitals: Temp Pulse Resp BP Pulse Ox 99.0 F 90 20 149/72 H 97 04/17/17 17:23 04/17/17 17:23 04/17/17 17:23 04/17/17 17:23 04/17/17 17:23 Course - Vital Signs Vital signs: Temp Pulse Resp BP Pulse Ox 99.0 F 90 20 149/72 H 97 04/17/17 17:23 04/17/17 17:23 04/17/17 17:23 12/06/17 17:23 04/17/17 17:23
[2017-04-17 18:21] LABS: ABSOLUTE LYMPHOCYTES (AUTO) 0.4 10^3/uL (0.5-4.7); ABSOLUTE MONOCYTES (AUTO) 0.2 10^3/uL (0.1-1.4); ABSOLUTE NEUT (AUTO) 6.4 10^3/uL (1.7-8.2); BASOPHILS % (AUTO) 0.3 % (0-2); EOSINOPHILS % (AUTO) 0.1 % (0-6); HEMATOCRIT 26.6 % (37.9-51.0); HEMOGLOBIN 8.7 g/dL (13.5-17.0); HGB HCT DIFFERENCE -0.5; LYMPHOCYTES % (AUTO) 5.3 % (13-45); MEAN CORPUSCULAR HEMOGLOBIN 26.4 pg (27.0-33.4); MEAN CORPUSCULAR HGB CONC 32.5 g/dL (32.0-36.0); MEAN CORPUSCULAR VOLUME 81 fl (80-97); MONOCYTES % (AUTO) 3.1 % (3-13); RED BLOOD COUNT 3.27 10^6/uL (4.35-5.55); RED CELL DISTRIBUTION WIDTH 15.2 % (11.5-14.0); SEGMENTED NEUTROPHILS % (AUTO) 91.2 % (42-78)
[2017-04-17 18:36] LABS: ALANINE AMINOTRANSFERASE 24 U/L (21-72); ALBUMIN 3.8 g/dL (3.5-5.0); ALKALINE PHOSPHATASE 61 U/L (38-126); ANION GAP 10 (5-19); ASPARTATE AMINO TRANSFERASE 21 U/L (17-59); BILIRUBIN,DIRECT 0.4 mg/dL (0.0-0.4); BILIRUBIN,TOTAL 0.7 mg/dL (0.2-1.3); BLOOD UREA NITROGEN 25 mg/dL (7-20); CALCIUM 9.3 mg/dL (8.4-10.2); CARBON DIOXIDE 22 mmol/L (22-30); CHLORIDE 110 mmol/L (98-107); CREATININE RESULT 1.56 mg/dL (0.52-1.25); GLUCOSE 124 mg/dL (75-110); POTASSIUM 4.4 mmol/L (3.6-5.0); SODIUM 142.4 mmol/L (137-145); TOTAL PROTEIN 6.4 g/dL (6.3-8.2)
--- NOTE | 2017-04-17 19:27 | ER Document Report ---
ED General - General Chief Complaint: Urinary Problem Stated Complaint: BLOOD IN URINE Time Seen by Provider: 04/17/17 17:43 Notes: Patient is a 66-year-old male who presents with 12 hours of gross hematuria. Patient reports that he has had similar symptoms in the past with hemorrhage from his [place] polycystic kidneys but typically goes away quickly and this has persisted which is what prompted him to come to the emergency department today. He does note some mild discomfort over the implanted kidney in the left lower quadrant. He has had his kidney for 21 years and has not had any history of rejection. He takes hydroxychloroquine for immune suppression and has not missed any doses. He denies any fever or constitutional symptoms. He has not spoken to his tax representative regarding today's concerns. TRAVEL OUTSIDE OF THE [place] IN LAST 30 DAYS: No - Related Data Allergies/Adverse Reactions: povidone-iodine [From Betadine] Adverse Reaction (Verified 03/08/17 09:52) soap [From Betadine] Adverse Reaction (Verified 03/08/17 09:52) Past Medical History - General Information source: Patient - Social History Smoking Status: Never Smoker Chew tobacco use (# tins/day): No Frequency of alcohol use: None Drug Abuse: None Lives with: Spouse/Significant other Family History: Arthritis, CAD, Hyperlipidemia, Hypertension, Malignancy Patient has suicidal ideation: No Patient has homicidal ideation: No - Past Medical History Cardiac Medical History: Reports: Hx Hypercholesterolemia, Hx Hypertension Pulmonary Medical History: Denies: Hx Tuberculosis Neurological Medical History: Denies: Hx Seizures Renal/ Medical History: Reports: Hx End Stage Renal Disease. Denies: Hx Peritoneal Dialysis GI Medical History: Reports: Hx Gastroesophageal Reflux Disease, Hx Hiatal Hernia Musculoskeltal Medical History: Reports Hx Arthritis, Reports Hx Musculoskeletal Deformity, Reports Hx Musculoskeletal Trauma Psychiatric Medical History: Denies: Hx Depression Traumatic Medical History: Reports: Hx Fractures - Bilateral hips right hand and skull Past Surgical History: Reports: Hx Abdominal Surgery - inguinal hernia repair, Hx Inguinal Hernia - Bilateral at different times, Hx Kidney (Renal Surgery) - RENAL TRANSPLANT 1995, Hx Orthopedic Surgery - left hip replacement, Hx Vascular Surgery - Dialysis shunt and fistula before his kidney transplant - Immunizations Hx Diphtheria, Pertussis, Tetanus Vaccination: Yes Review of Systems - Review of Systems Notes: Constitutional: Negative for fever. HENT: Negative for sore throat. Eyes: Negative for visual changes. Cardiovascular: Negative for chest pain. Respiratory: Negative for shortness of breath. Gastrointestinal: Negative for abdominal pain, vomiting or diarrhea. Genitourinary: Positive for hematuria Musculoskeletal: Negative for back pain. Skin: Negative for rash. Neurological: Negative for headaches, weakness or numbness. 10 point ROS negative except as marked above and in HPI. Physical Exam - Vital signs Vitals: Temp Pulse Resp BP Pulse Ox 99.0 F 90 20 149/72 H 97 04/17/17 17:23 04/17/17 17:23 04/17/17 17:23 04/17/17 17:23 04/17/17 17:23 Interpretation: Normal Notes: PHYSICAL EXAMINATION: GENERAL: Well-appearing, well-nourished and in no acute distress. HEAD: Atraumatic, normocephalic. EYES: Pupils equal round and reactive to light, extraocular movements intact, sclera anicteric, conjunctiva are normal. ENT: nares patent, oropharynx clear without exudates. Moderately dry mucous membranes. NECK: Normal range of motion, supple without lymphadenopathy LUNGS: Breath sounds clear to auscultation bilaterally and equal. No wheezes rales or rhonchi. HEART: Regular rate and rhythm without murmurs ABDOMEN: Soft, mild pain over the left lower quadrant over the site of the transplant kidney otherwise no localized tenderness, normoactive bowel sounds. No guarding, no rebound. No masses appreciated. EXTREMITIES: Normal range of motion, no pitting or edema. No cyanosis. NEUROLOGICAL: No focal neurological deficits. Moves all extremities spontaneously and on command. PSYCH: Normal mood, normal affect. SKIN: Warm, Dry, normal turgor, no rashes or lesions noted. Course - Re-evaluation Re-evalutation: 04/17/17 19:28 Patient presents with hematuria that has been present for the past 12 hours in the setting of a renal transplant in 1995. Patient does have his [place] kidneys that lost function secondary to progressive polycystic kidney disease and notes that he has had hemorrhage in the past that cleared spontaneously. He has had a significant amount of blood loss as his hemoglobin has down trended from 11.5 in February to 8.7 today. Differential diagnosis includes hemorrhage from the [place] kidneys, rejection of the transplanted kidney, versus possible pyelonephritis. Patient does not have any acute constitutional or infectious symptoms to suggest infectious etiology. Will proceed with the urinalysis, transplant ultrasound and discussed with patient's tax representative at [place] Dr. Luciano 04/17/17 21:29 urinalysis demonstrates findings consistent with a possible acute pyelonephritis versus possible rejection with white blood cell clumps, greater than 182 white blood cells as well as greater than 182 red blood cells. Additional laboratories show creatinine is slightly elevated from his prior at 1.56. He is also anemic today at 8.7 down from 11.5 and 03/09 suggesting that he has bled a decent amount in the form of his hematuria. I have briefly discussed this case with Dr. Cancino the tax representative prison teacher who states the patient will require transfer as we do not have capacity to any kind of renal biopsy here to evaluate for possible rejection which would be an alternative possibility for the symptoms that the patient is presenting with. I discussed this case with the resident working under who has accepted the patient in transfer. - Vital Signs Vital signs: Temp Pulse Resp BP Pulse Ox 99.0 F 55 L 17 155/88 H 98 04/17/17 17:23 04/18/17 00:08 04/18/17 03:01 04/18/17 03:01 04/18/17 03:01 - Laboratory Result Diagrams: 04/17/17 18:05 04/17/17 18:05 Laboratory results interpreted by me: 04/17/17 04/17/17 04/17/17 18:05 18:05 19:05 RBC 3.27 L Hgb 8.7 L Hct 26.6 L MCH 26.4 L RDW 15.2 H Plt Count 130 L Seg Neutrophils % 91.2 H Lymphocytes % 5.3 L Absolute Lymphocytes 0.4 L Chloride 110 H BUN 25 H Creatinine 1.56 H Est GFR ( Amer) 54 L Est GFR (Non-Af Amer) 45 L Glucose 124 H Urine Protein >=500 H Urine Blood MODERATE H Ur Leukocyte Esterase MODERATE H - Diagnostic Test Radiology reviewed: Reports reviewed Discharge - Discharge Clinical Impression: Renal transplant recipient, Pyelonephritis, CKD (chronic kidney disease) stage 3, GFR 30-59 ml/min, Possible kidney rejection Condition: Fair Disposition: [facility] Referrals: CHEYANNE ELKINS MD [Primary Care Provider] - Follow up as needed
[2017-04-17 19:43] LABS: BILIRUBIN,URINE NEGATIVE (NEGATIVE); GLUCOSE, URINE NEGATIVE (NEGATIVE); KETONES,URINE NEGATIVE (NEGATIVE); LEUKOCYTE ESTERASE,URINE MODERATE (NEGATIVE); NITRITE,URINE NEGATIVE (NEGATIVE); PROTEIN,URINE >=500 mg/dL (NEGATIVE); URINE SPECIFIC GRAVITY 1.012; UROBILINOGEN,URINE NEGATIVE mg/dL (<2.0)
[2017-04-17 19:52] LABS: APPEARANCE,URINE TURBID
[2017-04-17] MEDS ORDERED: CEFEPIME 2 GM/D5W RTU 2 GM/50 ML RTUPB IV ONE (21:02)
[2017-04-17] MEDS ORDERED: NORMAL SALINE 1000 ML 1,000 ML IV ONE (21:26)
--- NOTE | 2017-04-17 22:07 | RADIOLOGY REPORT (SQ) ---
EXAM DESCRIPTION: U/S RETROPERITON (RENAL/AORTA); U/S LTD DUPLEX ART/MOISES FLOW COMPLETED DATE/TIME: 04/17/2017 9:19 pm REASON FOR STUDY: transplant with hematuria; TRANSPLANT WITH HEMATURIA COMPARISON: None. TECHNIQUE: Dynamic and static grayscale images acquired of the kidneys and bladder and recorded on P ACS. Additional selected color Doppler and spectral images recorded. LIMITATIONS: None. FINDINGS: RIGHT KIDNEY: 16.5 cm. Changes of polycystic kidney. LEFT KIDNEY: 14.6 cm P changes of polycystic kidney. BLADDER: Echogenic debris in the base of the bladder. OTHER FINDINGS: Transplant kidney in left lower quadrant. [id number] hydronephrosis. Normal vascular flow. Renal artery to aortic ratio is 1.37. IMPRESSION: Polycystic [place] kidneys. Moderate to marked hydronephrosis of the transplant kidney. Normal Doppler values. Echogenic debris in the base of the bladder. TECHNICAL DOCUMENTATION: JOB ID: [id number] [employer]- All Rights Reserved
--- NOTE | 2017-04-17 22:07 | RADIOLOGY REPORT (SQ) ---
EXAM DESCRIPTION: U/S RETROPERITON (RENAL/AORTA); U/S LTD DUPLEX ART/MOISES FLOW COMPLETED DATE/TIME: 04/17/2017 9:19 pm REASON FOR STUDY: transplant with hematuria; TRANSPLANT WITH HEMATURIA COMPARISON: None. TECHNIQUE: Dynamic and static grayscale images acquired of the kidneys and bladder and recorded on P ACS. Additional selected color Doppler and spectral images recorded. LIMITATIONS: None. FINDINGS: RIGHT KIDNEY: 16.5 cm. Changes of polycystic kidney. LEFT KIDNEY: 14.6 cm P changes of polycystic kidney. BLADDER: Echogenic debris in the base of the bladder. OTHER FINDINGS: Transplant kidney in left lower quadrant. [id number] hydronephrosis. Normal vascular flow. Renal artery to aortic ratio is 1.37. IMPRESSION: Polycystic [place] kidneys. Moderate to marked hydronephrosis of the transplant kidney. Normal Doppler values. Echogenic debris in the base of the bladder. TECHNICAL DOCUMENTATION: JOB ID: [id number] [employer]- All Rights Reserved
[2017-04-18] MEDS ORDERED: CLONIDINE HCL 0.2 MG TABLET PO ONE (08:46)
[2017-04-18] MEDS ORDERED: CYCLOSPORINE MODIFIED 100 MG PO ONE (08:46)
[2017-04-18] MEDS ORDERED: MYCOPHENOLATE MOFETIL 250 MG CAPSULE PO ONE (08:46)
[2017-04-18] MEDS ORDERED: PREDNISONE 20 MG TABLET PO ONE (08:46)
[2017-04-18] MEDS: CEFEPIME 1 GM/D5W RTU 1 GM/50 ML RTUPB IV SCH ×2 (10:40→18:17)
--- NOTE | 2017-04-18 17:15 | PDOC CONSULTATION ---
Consultation Consult Date: 04/18/17 Attending physician:: MEGHANN MORAN Consult reason:: transplant meds History of Present Illness Admission Date/PCP: CHEYANNE ELKINS MD Patient complains of: Hematuria History of Present Illness: DASHAWN SALEH is a 66 year old male with a history of chronic renal failure secondary to polycystic kidney disease who will receive a renal transplant 21 years ago. The patient presented with hematuria. The patient has been accepted for transfer to [facility] where his forming operator is. The patient is being treated for presumed pyelonephritis as a cause with cefepime. Patient is on antirejection medications and I have been asked to address these issues. The patient reports that his hematuria has improved overnight. He normally takes cyclosporine 125 mg in the morning and 100 mg at night. He also takes CellCept 1000 mg every 12 hours as well as taking prednisone 5 mg daily. The patient also is on several antihypertensives. The patient currently denies any pain. Denies any fevers or chills. Past Medical History Cardiac Medical History: Reports: Hyperlipidema, Hypertension Pulmonary Medical History: Denies: Tuberculosis Neurological Medical History: Reports: Other - Peripheral neuropathy Denies: Seizures Renal/ Medical History: Reports: End Stage Renal Disease GI Medical History: Reports: Gastroesophageal Reflux Disease, Hiatal Hernia Musculoskeltal Medical History: Reports: Arthritis Psychiatric Medical History: Denies: Depression Traumatic Medical History: Reports: None Hematology: Reports: None Infectious Medical History: Reports: None Past Surgical History Past Surgical History: Reports: Orthopedic Surgery - left hip replacement, Vascular Surgery - Dialysis shunt and fistula before his kidney transplant Social History Information Source: Patient Lives with: Spouse/Significant other Smoking Status: Never Smoker Frequency of Alcohol Use: None Hx Recreational Drug Use: No Drugs: None Hx Prescription Drug Abuse: No - Advance Directive Resuscitation Status: Full Code Family History Family History: Arthritis, CAD, Hyperlipidemia, Hypertension, Malignancy Parental Family History Reviewed: Yes Children Family History Reviewed: No Sibling(s) Family History Reviewed.: No Medication/Allergy Home Medications: Atorvastatin Calcium [Lipitor 20 mg Tablet] 20 mg PO QHS 03/08/17 Benazepril HCl [Lotensin 20 mg Tablet] 20 mg PO Q12 03/08/17 Clonidine HCl [Catapres 0.3 mg Tablet] 0.3 mg PO Q12 03/08/17 Cyclosporine, Modified [Cyclosporine Modified] 25 mg PO DAILY 03/08/17 Cyclosporine, Modified [Cyclosporine Modified] 100 mg PO Q12 03/08/17 Multivitamin [Tab-A-Vilma (Multiple Vitamin) Tablet] 1 tab PO DAILY 03/08/17 Mycophenolate Mofetil [Cellcept 250 mg Capsule] 1,000 mg PO Q12 03/08/17 Nifedipine [Nifedipine ER] 60 mg PO Q12 03/08/17 Prednisone 20 mg PO DAILY 4 Days #4 tablet 03/09/17 Allergies/Adverse Reactions: povidone-iodine [From Betadine] Adverse Reaction (Verified 03/08/17 09:52) soap [From Betadine] Adverse Reaction (Verified 03/08/17 09:52) Review of Systems Constitutional: ABSENT: chills, fever(s), headache(s), weight gain, weight loss Cardiovascular: ABSENT: chest pain, dyspnea on exertion, edema, orthropnea, palpitations Respiratory: ABSENT: cough, hemoptysis Gastrointestinal: ABSENT: abdominal pain, constipation, diarrhea, hematemesis, hematochezia, nausea, vomiting Genitourinary: PRESENT: hematuria Musculoskeletal: ABSENT: joint swelling Integumentary: ABSENT: rash, wounds Neurological: PRESENT: paresthesias Psychiatric: ABSENT: anxiety, depression Endocrine: ABSENT: cold intolerance, heat intolerance, polydipsia, polyuria Hematologic/Lymphatic: ABSENT: easy bleeding, easy bruising Physical Exam Vital Signs: Temp Pulse Resp BP Pulse Ox 99.0 F 55 L 19 150/74 H 97 04/17/17 17:23 04/18/17 00:08 04/18/17 11:07 04/18/17 11:07 04/18/17 11:07 Intake & Output 04/17/17 04/18/17 04/19/17 06:59 06:59 06:59 Output Total 1135 Balance -1135 Weight 89.8 kg General appearance: PRESENT: no acute distress, well-developed, well-nourished Head exam: PRESENT: atraumatic, normocephalic Mouth exam: PRESENT: moist, tongue midline Neck exam: ABSENT: JVD Respiratory exam: PRESENT: clear to auscultation massiel. ABSENT: rales, rhonchi, wheezes Cardiovascular exam: PRESENT: RRR. ABSENT: diastolic murmur, rubs, systolic murmur GI/Abdominal exam: PRESENT: normal bowel sounds, soft. ABSENT: distended, guarding, mass, organolmegaly, rebound, tenderness Extremities exam: ABSENT: calf tenderness, clubbing, pedal edema Neurological exam: PRESENT: alert, awake, oriented to person, oriented to place , oriented to time, oriented to situation, CN II-XII grossly intact. ABSENT: motor sensory deficit Psychiatric exam: PRESENT: appropriate affect Skin exam: PRESENT: dry, intact, warm. ABSENT: cyanosis, rash Results Laboratory Results: 04/17/17 18:05 04/17/17 18:05 04/17/17 04/17/17 04/17/17 18:05 18:05 19:05 WBC 7.0 RBC 3.27 L Hgb 8.7 L Hct 26.6 L MCV 81 MCH 26.4 L MCHC 32.5 RDW 15.2 H Plt Count 130 L Seg Neutrophils % 91.2 H Lymphocytes % 5.3 L Monocytes % 3.1 Eosinophils % 0.1 Basophils % 0.3 Absolute Neutrophils 6.4 Absolute Lymphocytes 0.4 L Absolute Monocytes 0.2 Absolute Eosinophils 0.0 Absolute Basophils 0.0 Sodium 142.4 Potassium 4.4 Chloride 110 H Carbon Dioxide 22 Anion Gap 10 BUN 25 H Creatinine 1.56 H Est GFR ( Amer) 54 L Est GFR (Non-Af Amer) 45 L Glucose 124 H Calcium 9.3 Total Bilirubin 0.7 AST 21 ALT 24 Alkaline Phosphatase 61 Total Protein 6.4 Albumin 3.8 Urine Color RED Urine Appearance TURBID Urine pH 6.0 Ur Specific [place] 1.012 Urine Protein >=500 H Urine Glucose (UA) NEGATIVE Urine Ketones NEGATIVE Urine Blood MODERATE H Urine Nitrite NEGATIVE Ur Leukocyte Esterase MODERATE H Urine WBC (Auto) >182 Urine RBC (Auto) >182 Impressions: Vascular Ultrasound 04/17/17 00:00 IMPRESSION: Polycystic [place] kidneys. Moderate to marked hydronephrosis of the transplant kidney. Normal Doppler values. Echogenic debris in the base of the bladder. Renal Ultrasound 04/17/17 18:59 IMPRESSION: Polycystic [place] kidneys. Moderate to marked hydronephrosis of the transplant kidney. Normal Doppler values. Echogenic debris in the base of the bladder. Assessment & Plan - Diagnosis (1) Pyelonephritis Is this a current diagnosis for this admission?: Yes Plan: The patient is currently on cefepime. This is a good choice for treatment of presumed pyelonephritis. Culture so far negative. (2) Renal transplant recipient Is this a current diagnosis for this admission?: Yes Plan: Continue with the cyclosporine, CellCept and prednisone. (3) Hypertension Qualifiers: Hypertension type: essential hypertension Qualified Code(s): I10 - Essential (primary) hypertension Is this a current diagnosis for this admission?: Yes Plan: We will restart the clonidine but hold the benazepril for now. - Time Time Spent: 50 to 70 Minutes - Plan Summary Plan Summary: We will follow along until the patient is transferred to [facility].
[2017-04-18] MEDS ORDERED: MYCOPHENOLATE MOFETIL 250 MG CAPSULE PO SCH (18:00)
[2017-04-18] MEDS ORDERED: FAMOTIDINE 20 MG TABLET PO ONE (18:26)
[2017-04-18 20:12] VITALS: BP 171/97
[2017-04-18] MEDS ORDERED: CLONIDINE HCL 0.2 MG TABLET PO SCH (22:00)
[2017-04-18] MEDS ORDERED: CYCLOSPORINE MODIFIED 100 MG PO SCH (22:00)
[2017-04-19] MEDS ORDERED: PREDNISONE 20 MG TABLET PO SCH (10:00)
[2017-04-19] MEDS ORDERED: CYCLOSPORINE, MODIFIED 25 MG CAPSULE PO SCH (10:00)
== END 2017-04-18 20:06 | disposition short-term general hospital (02) ==
LOC: ER 17:13
DX: N12 Tubulo-interstitial nephritis, not specified as acute or chronic (principal); R31.0 Gross hematuria; I12.9 Hypertensive chronic kidney disease with stage 1 through stage 4 chronic kidney disease, or unspecified chronic kidney disease; N18.3 Chronic kidney disease, stage 3 (moderate); Q61.3 Polycystic kidney, unspecified; Z94.0 Kidney transplant status; Z79.899 Other long term (current) drug therapy
CPT/HCPCS: 99285; 96365; 36415; 87040; 87086; 85025; 80053; 81001; 76770; 93976; A9270 ×4; J7502; J7030; J0692 ×2; J3490; J7512; J7517

== ENCOUNTER → 2017-09-13 | Outpatient (CLI) | payer MEDICARE, MEDICAID ==
[2017-09-13 09:04] LABS: ABSOLUTE LYMPHOCYTES (AUTO) 1.2 10^3/uL (0.5-4.7); ABSOLUTE MONOCYTES (AUTO) 0.3 10^3/uL (0.1-1.4); ABSOLUTE NEUT (AUTO) 3.1 10^3/uL (1.7-8.2); BASOPHILS % (AUTO) 0.6 % (0-2); EOSINOPHILS % (AUTO) 0.7 % (0-6); HEMATOCRIT 29.5 % (37.9-51.0); HEMOGLOBIN 9.6 g/dL (13.5-17.0); LYMPHOCYTES % (AUTO) 26.1 % (13-45); MEAN CORPUSCULAR HEMOGLOBIN 26.9 pg (27.0-33.4); MEAN CORPUSCULAR HGB CONC 32.7 g/dL (32.0-36.0); MEAN CORPUSCULAR VOLUME 82 fl (80-97); MONOCYTES % (AUTO) 5.6 % (3-13); PLATELET COUNT 101 10^3/uL (150-450); RED BLOOD COUNT 3.59 10^6/uL (4.35-5.55); RED CELL DISTRIBUTION WIDTH 15.5 % (11.5-14.0); TOTAL CELLS COUNTED % (AUTO) 100 %; WHITE BLOOD COUNT 4.6 10^3/uL (4.0-10.5)
[2017-09-13 09:11] LABS: HEMATOCRIT 29.5 % (37.9-51.0); HEMOGLOBIN 9.6 g/dL (13.5-17.0); MEAN CORPUSCULAR HEMOGLOBIN 26.9 pg (27.0-33.4); MEAN CORPUSCULAR HGB CONC 32.7 g/dL (32.0-36.0); MEAN CORPUSCULAR VOLUME 82 fl (80-97); PLATELET COUNT 101 10^3/uL (150-450); RED BLOOD COUNT 3.59 10^6/uL (4.35-5.55); RED CELL DISTRIBUTION WIDTH 15.5 % (11.5-14.0); WHITE BLOOD COUNT 4.6 10^3/uL (4.0-10.5)
[2017-09-13 09:28] LABS: ALANINE AMINOTRANSFERASE 21 U/L (21-72); ANION GAP 16 (5-19); ASPARTATE AMINO TRANSFERASE 16 U/L (17-59); BLOOD UREA NITROGEN 36 mg/dL (7-20); CARBON DIOXIDE 23 mmol/L (22-30); CHLORIDE 109 mmol/L (98-107); CHOLESTEROL 125.26 mg/dL (0-200); GLUCOSE 102 mg/dL (75-110); POTASSIUM 3.9 mmol/L (3.6-5.0); SODIUM 147.7 mmol/L (137-145); TRIGLYCERIDES 65 mg/dL (<150); URIC ACID 8.3 mg/dL (3.5-8.5)
[2017-09-13 09:40] LABS: DIRECT LDL 50 mg/dL (<100)
[2017-09-13 09:55] LABS: ANION GAP 16 (5-19); BLOOD UREA NITROGEN 36 mg/dL (7-20); CARBON DIOXIDE 23 mmol/L (22-30); CHLORIDE 109 mmol/L (98-107); GLUCOSE 102 mg/dL (75-110); PHOSPHORUS 5.1 mg/dL (2.5-4.5); POTASSIUM 3.9 mmol/L (3.6-5.0); SODIUM 147.7 mmol/L (137-145)
== END ==
LOC: OD 07:43
PROVIDERS: ATTEND Family Medicine Geriatric Medicine
DX: I10 Essential (primary) hypertension (principal); E78.5 Hyperlipidemia, unspecified; M10.9 Gout, unspecified; Z79.899 Other long term (current) drug therapy; Z94.0 Kidney transplant status
CPT/HCPCS: 36415; 80048; 80061; 80069; 80158; 84450; 84460; 84550; 85025; 85027

== ENCOUNTER → 2017-11-16 | Outpatient (CLI) | payer MEDICARE, MEDICAID ==
[2017-11-16 09:20] LABS: HEMATOCRIT 32.1 % (37.9-51.0); HEMOGLOBIN 10.6 g/dL (13.5-17.0); MEAN CORPUSCULAR HEMOGLOBIN 27.5 pg (27.0-33.4); MEAN CORPUSCULAR HGB CONC 32.9 g/dL (32.0-36.0); MEAN CORPUSCULAR VOLUME 84 fl (80-97); PLATELET COUNT 100 10^3/uL (150-450); RED BLOOD COUNT 3.84 10^6/uL (4.35-5.55); RED CELL DISTRIBUTION WIDTH 14.5 % (11.5-14.0); WHITE BLOOD COUNT 6.1 10^3/uL (4.0-10.5)
[2017-11-16 09:42] LABS: ALBUMIN 3.9 g/dL (3.5-5.0); ANION GAP 11 (5-19); ANION GAP 12 (5-19); BLOOD UREA NITROGEN 22 mg/dL (7-20); CALCIUM 9.4 mg/dL (8.4-10.2); CALCIUM 9.5 mg/dL (8.4-10.2); CARBON DIOXIDE 27 mmol/L (22-30); CHLORIDE 108 mmol/L (98-107); CHLORIDE 109 mmol/L (98-107); GLUCOSE 93 mg/dL (75-110); PHOSPHORUS 3.9 mg/dL (2.5-4.5); POTASSIUM 3.8 mmol/L (3.6-5.0); SODIUM 146.7 mmol/L (137-145); SODIUM 146.8 mmol/L (137-145); URIC ACID 7.2 mg/dL (3.5-8.5)
== END ==
LOC: OD 08:15
PROVIDERS: ATTEND Family Medicine Geriatric Medicine
DX: M1A.9XX0 Chronic gout, unspecified, without tophus (tophi) (principal); N18.9 Chronic kidney disease, unspecified; Z79.899 Other long term (current) drug therapy; Z94.0 Kidney transplant status
CPT/HCPCS: 36415; 80048; 80069; 80158; 84550; 85027

== ENCOUNTER 2017-11-18 04:22 | Emergency (ER) | payer MEDICARE, MEDICAID ==
--- NOTE | 2017-11-18 04:54 | ER Document Report ---
HPI - HPI Pain Level: 4 Notes: Patient is a 66-year-old male with history of hypertension, CKD status post kidney transplant who presents to the ED complaining of a sore throat, nasal congestion/discharge, occasional dry nonproductive cough 3 days. Patient states that he is still able to eat and drink, but does have a decreased p.o. intake. He is urinating normally and having normal bowel movements. Patient states that he is scheduled to see his primary care doctor tomorrow. Denies any drug allergies. No previous history of tonsillar abscess. Denies any headache, fever, neck pain, chest pain, palpitations, syncope, shortness of breath, wheeze, dyspnea, abdominal pain, nausea/vomiting/diarrhea, urinary retention, dysuria, hematuria, back pain, loss of control of bowel or bladder, or rash. - ROS Systems Reviewed and Negative: Yes All other systems reviewed and negative - REPRODUCTIVE Reproductive: DENIES: : Past Medical History - Social History Smoking Status: Unknown if Ever Smoked Family History: Arthritis, CAD, Hyperlipidemia, Hypertension, Malignancy - Past Medical History Cardiac Medical History: Reports: Hx Hypercholesterolemia, Hx Hypertension Pulmonary Medical History: Denies: Hx Tuberculosis Neurological Medical History: Denies: Hx Seizures Renal/ Medical History: Reports: Hx End Stage Renal Disease. Denies: Hx Peritoneal Dialysis GI Medical History: Reports: Hx Gastroesophageal Reflux Disease, Hx Hiatal Hernia Musculoskeltal Medical History: Reports Hx Arthritis, Reports Hx Musculoskeletal Deformity, Reports Hx Musculoskeletal Trauma Psychiatric Medical History: Denies: Hx Depression Traumatic Medical History: Reports: Hx Fractures - Bilateral hips right hand and skull Past Surgical History: Reports: Hx Abdominal Surgery - inguinal hernia repair, Hx Inguinal Hernia - Bilateral at different times, Hx Kidney (Renal Surgery) - RENAL TRANSPLANT 1995, Hx Orthopedic Surgery - left hip replacement, Hx Vascular Surgery - Dialysis shunt and fistula before his kidney transplant - Immunizations Hx Diphtheria, Pertussis, Tetanus Vaccination: Yes Vertical Provider Document - CONSTITUTIONAL Agree With Documented VS: No - HR 90 during my exam Notes: PHYSICAL EXAMINATION: GENERAL: Well-appearing, well-nourished and in no acute distress. A&Ox4. Answers questions appropriately. Moves comfortably w/o notable distress HEAD: Atraumatic, normocephalic. EYES: Pupils equal round and reactive to light, extraocular movements intact, sclera anicteric, conjunctiva are normal. ENT: EAC clear b/l. TM's intact b/l without erythema, fluid, or perforation. Nares patent and with clear discharge. oropharynx mild erythema without exudates. No tonsilar hypertrophy with mild erythema no exudate. No palatine shift. Uvula midline. No tongue protrusion. No drooling, hoarseness, or airway compromise. Moist mucous membranes. No sinus tenderness. NECK: Normal range of motion, supple without lymphadenopathy. No rigidity/ meningismus. LUNGS: Breath sounds clear to auscultation bilaterally and equal. No wheezes rales or rhonchi. No retractions HEART: Regular rate and rhythm without murmurs, rubs, gallops. ABDOMEN: Soft, nontender, nondistended abdomen. No guarding, no rebound. No masses appreciated. Normal bowel sounds present. No CVA tenderness bilaterally. No hepatosplenomegaly. NEUROLOGICAL: Normal speech, normal gait. PSYCH: Normal mood, normal affect. SKIN: Warm, Dry, normal turgor, no rashes or lesions noted. - INFECTION CONTROL TRAVEL OUTSIDE OF THE [place] IN LAST 30 DAYS: No Course - Re-evaluation Re-evalutation: 11/18/17 06:10 Patient is an afebrile, well-hydrated, 66-year-old male who presents to the ED with an acute URI/pharyngitis, suspect viral. Vitals are acceptable without any significant tachycardia, tachypnea, or hypoxia. PE is otherwise unremarkable. Patient is tolerating p.o. without any difficulties and is nontoxic-appearing. Rapid strep was negative with throat culture pending. No other labs or imaging warranted at this time based on H&P. Low suspicion for any meningitis, sepsis, peritonsillar/pharyngeal abscess, respiratory compromise , Semaj's, or other emergent systemic condition at this time. Patient is aware this condition can change from initial presentation and he needs to monitor symptoms closely. Conservative measures otherwise for symptoms. Recheck with your PCM in 2-3 days. Consider consult with ENT. Return to the ED with any worsening/concerning symptoms otherwise as reviewed in discharge. Patient is in agreement. Discharge - Discharge Clinical Impression: Acute URI Acute pharyngitis Qualifiers: Pharyngitis/tonsillitis etiology: unspecified etiology Qualified Code(s): J02.9 - Acute pharyngitis, unspecified Condition: Stable Disposition: HOME, SELF-CARE Instructions: Sore Throat ([facility]), Upper Respiratory Illness ([facility]) Additional Instructions: Maintain adequate fluid intake Take meds as directed Salt water gargles, throat sprays, mouthwash rinse, peroxide gargles tylenol/ibuprofen as needed over the counter cold medication as needed for symptoms F/u: with your PCM in 2-3 days for a recheck Consider consult with ENT for ongoing/worsening symptoms Return to the ED with any fever, worsening pain, chest pain, neck pain/stiffness , shortness of breath, cough, drooling, trouble swallowing/breathing, abdominal pain, n/v/d, rash, or worsening/concerning symptoms otherwise. Referrals: JOE TEJEDA MD [ASSOCIATE] - 11/20/17 JEFFREY KOO DO [ASSOCIATE] - Follow up as needed
[2017-11-18 06:21] VITALS: BP 135/64
== END 2017-11-18 06:21 | disposition home or self-care (01) ==
LOC: ER 04:22
DX: J06.9 Acute upper respiratory infection, unspecified (principal); J02.9 Acute pharyngitis, unspecified; R09.81 Nasal congestion; R09.89 Other specified symptoms and signs involving the circulatory and respiratory systems; R05 Cough; R63.0 Anorexia; I12.9 Hypertensive chronic kidney disease with stage 1 through stage 4 chronic kidney disease, or unspecified chronic kidney disease; N18.9 Chronic kidney disease, unspecified; Z94.0 Kidney transplant status
CPT/HCPCS: 87070; 87880; 99283

== ENCOUNTER 2018-02-05 19:50 | Inpatient (IN) | payer MEDICARE, MEDICAID ==
--- NOTE | 2018-02-05 20:11 | ER Document Report ---
ED General - General Chief Complaint: Hand Pain Stated Complaint: ARM/ANKLE PAIN Time Seen by Provider: 02/05/18 20:06 Mode of Arrival: Wheelchair Information source: Patient, [facility] Records Notes: 67-year-old male presents with complaint of left hand and left elbow pain and swelling and right ankle pain. Patient was seen by his primary care physician Dr. Cheek, patient states that he was placed on Augmentin and allopurinol for his symptoms. Patient presents with worsening pain. Ultrasound was performed on January 30, 2018 and negative for DVT. I have greeted and performed a rapid initial assessment of this patient. A comprehensive ED assessment and evaluation of the patient, analysis of test results and completion of medical decision making process we will be contacted by additional ED providers. General; no acute distress Musculoskeletal; right hand swelling Respiratory; no respiratory distress TRAVEL OUTSIDE OF THE [place] IN LAST 30 DAYS: No - HPI Onset: Last week Onset/Duration: Persistent Quality of pain: Achy Severity: Mild Associated symptoms: Body/muscle aches Exacerbated by: Movement Relieved by: Denies Similar symptoms previously: Yes Recently seen / treated by doctor: Yes - Related Data Allergies/Adverse Reactions: povidone-iodine [From Betadine] Adverse Reaction (Verified 03/08/17 09:52) soap [From Betadine] Adverse Reaction (Verified 03/08/17 09:52) Past Medical History - Social History Family History: Arthritis, CAD, Hyperlipidemia, Hypertension, Malignancy - Past Medical History Cardiac Medical History: Reports: Hx Hypercholesterolemia, Hx Hypertension Pulmonary Medical History: Denies: Hx Tuberculosis Neurological Medical History: Denies: Hx Seizures Renal/ Medical History: Reports: Hx End Stage Renal Disease. Denies: Hx Peritoneal Dialysis GI Medical History: Reports: Hx Gastroesophageal Reflux Disease, Hx Hiatal Hernia Musculoskeletal Medical History: Reports Hx Arthritis, Reports Hx Musculoskeletal Deformity, Reports Hx Musculoskeletal Trauma Psychiatric Medical History: Denies: Hx Depression Traumatic Medical History: Reports: Hx Fractures - Bilateral hips right hand and skull Past Surgical History: Reports: Hx Abdominal Surgery - inguinal hernia repair, Hx Inguinal Hernia - Bilateral at different times, Hx Kidney (Renal Surgery) - RENAL TRANSPLANT 1995, Hx Orthopedic Surgery - left hip replacement, Hx Vascular Surgery - Dialysis shunt and fistula before his kidney transplant - Immunizations Hx Diphtheria, Pertussis, Tetanus Vaccination: Yes Physical Exam - Vital signs Vitals: Temp Pulse Resp BP Pulse Ox 98.7 F 111 H 18 126/57 H 97 02/05/18 19:58 02/05/18 19:58 02/05/18 19:58 02/05/18 19:58 02/05/18 19:58 Course - Vital Signs Vital signs: Temp Pulse Resp BP Pulse Ox 98.7 F 111 H 18 126/57 H 97 02/05/18 19:58 02/05/18 19:58 02/05/18 19:58 02/05/18 19:58 02/05/18 19:58 Discharge - Discharge Referrals: BAILEE CHEEK MD [Primary Care Provider] - Follow up as needed
--- NOTE | 2018-02-05 20:14 | ER Document Report ---
ED Medical Screen (RME) - General Chief Complaint: Hand Pain Stated Complaint: ARM/ANKLE PAIN Time Seen by Provider: 02/05/18 20:06 Mode of Arrival: Wheelchair Notes: 67-year-old male presents with complaint of left hand and left elbow pain and swelling and right ankle pain. Patient was seen by his primary care physician Dr. Cheek, patient states that he was placed on Augmentin and allopurinol for his symptoms. Patient presents with worsening pain. Ultrasound was performed on January 30, 2018 and negative for DVT. I have greeted and performed a rapid initial assessment of this patient. A comprehensive ED assessment and evaluation of the patient, analysis of test results and completion of medical decision making process we will be contacted by additional ED providers. General; no acute distress Musculoskeletal; right hand swelling Respiratory; no respiratory distress TRAVEL OUTSIDE OF THE [place] IN LAST 30 DAYS: No - HPI Onset: Other Onset/Duration: Persistent Quality of pain: Throbbing Severity: Mild Associated Symptoms: Body/muscle aches Exacerbated by: Movement Relieved by: Denies Similar symptoms previously: Yes Recently seen / treated by doctor: Yes - Related Data Smoking: Non-smoker Frequency of alcohol use: None Drug Abuse: None Allergies/Adverse Reactions: povidone-iodine [From Betadine] Adverse Reaction (Verified 03/08/17 09:52) soap [From Betadine] Adverse Reaction (Verified 03/08/17 09:52) Past Medical History - Past Medical History Cardiac Medical History: Reports: Hx Hypercholesterolemia, Hx Hypertension Pulmonary Medical History: Denies: Hx Tuberculosis Neurological Medical History: Denies: Hx Seizures Renal/ Medical History: Reports: Hx End Stage Renal Disease. Denies: Hx Peritoneal Dialysis GI Medical History: Reports: Hx Gastroesophageal Reflux Disease, Hx Hiatal Hernia Musculoskeltal Medical History: Reports Hx Arthritis, Reports Hx Musculoskeletal Deformity, Reports Hx Musculoskeletal Trauma Psychiatric Medical History: Denies: Hx Depression Traumatic Medical History: Reports: Hx Fractures - Bilateral hips right hand and skull Past Surgical History: Reports: Hx Abdominal Surgery - inguinal hernia repair, Hx Inguinal Hernia - Bilateral at different times, Hx Kidney (Renal Surgery) - RENAL TRANSPLANT 1995, Hx Orthopedic Surgery - left hip replacement, Hx Vascular Surgery - Dialysis shunt and fistula before his kidney transplant - Immunizations Hx Diphtheria, Pertussis, Tetanus Vaccination: Yes History of Influenza Vaccine for 02/2017 - 07/2017 Season: No Physical Exam - Vital signs Vitals: Temp Pulse Resp BP Pulse Ox 98.7 F 111 H 18 126/57 H 97 02/05/18 19:58 02/05/18 19:58 02/05/18 19:58 02/05/18 19:58 02/05/18 19:58 Course - Vital Signs Vital signs: Temp Pulse Resp BP Pulse Ox 98.7 F 111 H 18 126/57 H 97 02/05/18 19:58 02/05/18 19:58 02/05/18 19:58 02/05/18 19:58 02/05/18 19:58 Doctor's Discharge - Discharge Referrals: BAILEE CHEEK MD [Primary Care Provider] - Follow up as needed
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
--- NOTE | 2018-02-05 22:14 | RADIOLOGY REPORT (SQ) ---
3 VIEWS OF THE RIGHT ANKLE HISTORY: Pain COMPARISON: None. FINDINGS/IMPRESSION: Generalized osteopenia is present. No acute fracture or malalignment. Pes planus is present. Ankle mortise is preserved on these nonstress views. Mild degenerative changes of the hindfoot Mild bimalleolar soft tissue swelling. Vascular calcifications are present.
[2018-02-05 22:43] LABS: HEMATOCRIT 29.7 % (37.9-51.0); HEMOGLOBIN 9.8 g/dL (13.5-17.0); MEAN CORPUSCULAR HEMOGLOBIN 26.8 pg (27.0-33.4); MEAN CORPUSCULAR HGB CONC 32.9 g/dL (32.0-36.0); MEAN CORPUSCULAR VOLUME 82 fl (80-97); PLATELET COUNT 345 10^3/uL (150-450); RED BLOOD COUNT 3.64 10^6/uL (4.35-5.55); RED CELL DISTRIBUTION WIDTH 14.4 % (11.5-14.0); WHITE BLOOD COUNT 10.5 10^3/uL (4.0-10.5)
[2018-02-05 23:00] LABS: ABSOLUTE LYMPHOCYTES# (MANUAL) 0.7 10^3/uL (0.5-4.7); ABSOLUTE MONOCYTES # (MANUAL) 0.4 10^3/uL (0.1-1.4); ABSOLUTE NEUTROPHILS# (MANUAL) 9.3 10^3/uL (1.7-8.2); BASOPHILS % (MANUAL) 0 % (0-2); EOSINOPHILS % (MANUAL) 0 % (0-6); LYMPHOCYTES % (MANUAL) 7 % (13-45); MONOCYTES % (MANUAL) 4 % (3-13); SEGMENTED NEUTROPHILS % (MAN) 89 % (42-78); TOTAL CELLS COUNTED 100
[2018-02-05 23:03] LABS: ALANINE AMINOTRANSFERASE 18 U/L (21-72); ALBUMIN 3.7 g/dL (3.5-5.0); ALKALINE PHOSPHATASE 70 U/L (38-126); ANION GAP 13 (5-19); ASPARTATE AMINO TRANSFERASE 26 U/L (17-59); BILIRUBIN,DIRECT 0.6 mg/dL (0.0-0.4); BILIRUBIN,TOTAL 0.8 mg/dL (0.2-1.3); BLOOD UREA NITROGEN 35 mg/dL (7-20); C-REACTIVE PROTEIN 53.5 mg/L (<10.0); CALCIUM 9.9 mg/dL (8.4-10.2); CARBON DIOXIDE 25 mmol/L (22-30); CHLORIDE 99 mmol/L (98-107); GLUCOSE 176 mg/dL (75-110); HYPOCHROMASIA SLIGHT; POIKILOCYTOSIS SLIGHT; POTASSIUM 4.9 mmol/L (3.6-5.0); SODIUM 137.4 mmol/L (137-145); TOTAL PROTEIN 7.3 g/dL (6.3-8.2)
[2018-02-05 23:04] LABS: ANISOCYTOSIS SLIGHT; OVALOCYTES SLIGHT; PLATELET COMMENT ADEQUATE
[2018-02-05 23:22] LABS: ERYTHROCYTE SEDIMENTATION RATE 116 mm/hr (0-20)
--- NOTE | 2018-02-05 23:31 | RADIOLOGY REPORT (SQ) ---
EXAM DESCRIPTION: XR ELBOW 3 VIEWS COMPLETED DATE/TME: 02/05/2018 23:06 CLINICAL HISTORY: 67 years, Male, pain COMPARISON: None. NUMBER OF VIEWS: Four TECHNIQUE: Four views of the left elbow were done LIMITATIONS: None. FINDINGS: There is significant soft tissue swelling surrounding the left elbow, without visualization of any air in the soft tissues. Degenerative osteophyte formation is seen along the coronoid process of the proximal left ulna. Note is also made of soft tissue calcifications in the vicinity of the left elbow joint, suggestive of underlying degenerative changes involving the radial and the ulnar collateral ligaments. There is no acute bony trauma involving the left elbow IMPRESSION: There is significant soft tissue swelling around the left elbow joint without any acute bony trauma. Degenerative changes are seen around the left elbow joint 2010 [email or web address]- All Rights Reserved
[2018-02-06] MEDS ORDERED: LIDOCAINE 1% INJ-PF (10 MG/ML) 30 ML SDV ONE (01:47)
[2018-02-06] MEDS ORDERED: VANCOMYCIN HCL INJ 1000 MG VIAL IV ONE (01:47)
[2018-02-06] MEDS ORDERED: IPRATROPIUM/ALBUTEROL 0.5-2.5 MG/3 ML AMPUL NEB PRN (02:05)
[2018-02-06] MEDS ORDERED: ACETAMINOPHEN 325 MG TABLET PO PRN (02:05)
[2018-02-06] MEDS ORDERED: FENTANYL CITRATE INJ/PF 100 MCG/2 ML AMPUL IV ONE (02:07)
[2018-02-06] MEDS ORDERED: VANCOMYCIN HCL INJ 1000 MG VIAL IV PRN (02:12)
[2018-02-06] MEDS ORDERED: NORMAL SALINE 1000 ML 1,000 ML IV PRN (02:15)
[2018-02-06] MEDS ORDERED: VANCOMYCIN HCL 0 MG in DEXTROSE 5%-WATER 250 ML IV NR (02:15)
[2018-02-06] MEDS ORDERED: VANCOMYCIN HCL 1,000 MG in DEXTROSE 5%-WATER 250 ML IV ONE (02:20)
[2018-02-06] MEDS: MAG HYDROX/AL HYDROX/SIMETH SUSP 30 ML UDCUP PO PRN (03:09)
[2018-02-06] MEDS ORDERED: CEFEPIME 1 GM/D5W RTU 1 GM/50 ML RTUPB IV ONE (05:47)
--- NOTE | 2018-02-06 06:11 | PDOC H&P ---
History of Present Illness Admission Date/PCP: 02/06/18 02:27 BAILEE ELKINS MD Patient complains of: Left elbow pain and swelling History of Present Illness: DASHAWN SALEH is a 67 year old male with a past medical history of polycystic kidney disease status post renal transplant 1995 followed at [facility], hypertension, gout. Patient's complaints started approximately 11 days ago and was seen by primary care diagnosed with cellulitis and gout placed on allopurinol and Augmentin. Patient has progressive worsening prompting evaluation in the emergency room where again he is felt to have cellulitis with possible underlying septic bursitis. His case is clearly complicated by his history of hyperuricemia, renal transplant on antirejection medication state. He is referred to the hospitalist for admission. Past Medical History Cardiac Medical History: Reports: Hyperlipidema, Hypertension Pulmonary Medical History: Denies: Tuberculosis Neurological Medical History: Denies: Seizures Renal/ Medical History: Reports: End Stage Renal Disease GI Medical History: Reports: Gastroesophageal Reflux Disease, Hiatal Hernia Musculoskeltal Medical History: Reports: Arthritis, Gout Psychiatric Medical History: Denies: Depression Past Surgical History Past Surgical History: Reports: Orthopedic Surgery - left hip replacement, Vascular Surgery - Dialysis shunt and fistula before his kidney transplant Social History Information Source: Patient, [facility], [facility] Records Lives with: Family Smoking Status: Unknown if Ever Smoked Frequency of Alcohol Use: None Hx Recreational Drug Use: No Drugs: None Hx Prescription Drug Abuse: No - Advance Directive Resuscitation Status: Full Code Family History Family History: Arthritis, CAD, Hyperlipidemia, Hypertension, Malignancy Parental Family History Reviewed: Yes Children Family History Reviewed: Yes Sibling(s) Family History Reviewed.: Yes Medication/Allergy Home Medications: Atorvastatin Calcium [Lipitor 20 mg Tablet] 20 mg PO QHS 03/08/17 Benazepril HCl [Lotensin 20 mg Tablet] 20 mg PO Q12 03/08/17 Clonidine HCl [Catapres 0.3 mg Tablet] 0.3 mg PO Q12 03/08/17 Cyclosporine, Modified [Cyclosporine Modified] 25 mg PO DAILY 03/08/17 Cyclosporine, Modified [Cyclosporine Modified] 100 mg PO Q12 03/08/17 Multivitamin [Tab-A-Vilma (Multiple Vitamin) Tablet] 1 tab PO DAILY 03/08/17 Mycophenolate Mofetil [Cellcept 250 mg Capsule] 1,000 mg PO Q12 03/08/17 Nifedipine [Nifedipine ER] 60 mg PO Q12 03/08/17 Prednisone 20 mg PO DAILY 4 Days #4 tablet 03/09/17 Allergies/Adverse Reactions: povidone-iodine [From Betadine] Adverse Reaction (Verified 03/08/17 09:52) soap [From Betadine] Adverse Reaction (Verified 03/08/17 09:52) Review of Systems Constitutional: ABSENT: chills, fever(s), headache(s), weight gain, weight loss Eyes: ABSENT: visual disturbances Ears: ABSENT: hearing changes Cardiovascular: ABSENT: chest pain, dyspnea on exertion, edema, orthropnea, palpitations Respiratory: ABSENT: cough, hemoptysis Gastrointestinal: ABSENT: abdominal pain, constipation, diarrhea, hematemesis, hematochezia, nausea, vomiting Genitourinary: ABSENT: dysuria, hematuria Musculoskeletal: PRESENT: as per HPI, deformity, joint swelling Integumentary: ABSENT: rash, wounds Neurological: ABSENT: abnormal gait, abnormal speech, confusion, dizziness, focal weakness, syncope Psychiatric: ABSENT: anxiety, depression, homidical ideation, suicidal ideation Endocrine: ABSENT: cold intolerance, heat intolerance, polydipsia, polyuria Hematologic/Lymphatic: ABSENT: easy bleeding, easy bruising Physical Exam Vital Signs: Temp Pulse Resp BP Pulse Ox 98.8 F 79 20 119/74 97 02/06/18 04:34 02/06/18 04:34 02/06/18 04:34 02/06/18 04:34 02/06/18 04:34 Intake & Output 02/04/18 02/05/18 02/06/18 11:59 11:59 11:59 Weight 79.5 kg General appearance: PRESENT: cooperative, mild distress. ABSENT: disheveled Head exam: PRESENT: atraumatic, normocephalic Eye exam: PRESENT: conjunctiva pink, EOMI, PERRLA. ABSENT: scleral icterus Ear exam: PRESENT: normal external ear exam Mouth exam: PRESENT: moist, tongue midline Neck exam: ABSENT: carotid bruit, JVD, lymphadenopathy, thyromegaly Respiratory exam: PRESENT: clear to auscultation massiel. ABSENT: rales, rhonchi, wheezes Cardiovascular exam: PRESENT: RRR. ABSENT: diastolic murmur, rubs, systolic murmur Pulses: PRESENT: normal dorsalis pedis pul Vascular exam: PRESENT: normal capillary refill GI/Abdominal exam: PRESENT: normal bowel sounds, soft. ABSENT: distended, guarding, mass, organolmegaly, rebound, tenderness Rectal exam: PRESENT: deferred Extremities exam: PRESENT: joint swelling, tenderness, +1 edema. ABSENT: full ROM - Left upper extremity range limited by pain and swelling Musculoskeletal exam: ABSENT: full ROM - Left upper extremity range limited by pain and swelling Neurological exam: PRESENT: alert, awake, oriented to person, oriented to place , oriented to time, oriented to situation, CN II-XII grossly intact. ABSENT: motor sensory deficit Psychiatric exam: PRESENT: appropriate affect, normal mood. ABSENT: homicidal ideation, suicidal ideation Skin exam: PRESENT: dry, erythema - Left upper extremity without open ulcer or exudate, intact. ABSENT: abrasion Results Impressions: Ankle X-Ray 02/05/18 20:11 FINDINGS/IMPRESSION: Generalized osteopenia is present. No acute fracture or malalignment. Pes planus is present. Ankle mortise is preserved on these nonstress views. Mild degenerative changes of the hindfoot Mild bimalleolar soft tissue swelling. Vascular calcifications are present. Elbow X-Ray 02/05/18 23:06 IMPRESSION: There is significant soft tissue swelling around the left elbow joint without any acute bony trauma. Degenerative changes are seen around the left elbow joint 2010 [employer]- All Rights Reserved Assessment & Plan - Diagnosis (1) Septic bursitis Is this a current diagnosis for this admission?: Yes Plan: Symptomatic management, empiric antibiotics with broad-spectrum coverage given immunocompromise state, follow-up CBC, blood culture and orthopedic consult (2) Gout Is this a current diagnosis for this admission?: Yes Plan: Prednisone, holding allopurinol given acute renal failure, gentle hydration, follow-up uric acid level and joint aspiration (3) Acute renal failure Is this a current diagnosis for this admission?: Yes Plan: Avoid nephrotoxic meds and doses, gentle hydration, follow-up chemistry and nephrology consult (4) Immunocompromised state due to drug therapy Is this a current diagnosis for this admission?: Yes Plan: Continue outpatient regiment with increased prednisone dose. - Time Time Spent: 50 to 70 Minutes - Inpatient Certification Medical Necessity: Need Close Monitoring Due to Risk of Patient Decompensation
[2018-02-06] MEDS: CEFEPIME 1 GM/D5W RTU 1 GM/50 ML RTUPB IV SCH ×2 (06:12→17:20)
[2018-02-06] MEDS: HEPARIN SOD (PORCINE) 5,000 UNIT/ML 1 ML SYRINGE SUBCUT SCH ×3 (06:12→22:57)
[2018-02-06 06:29] LABS: ABSOLUTE LYMPHOCYTES (AUTO) 0.5 10^3/uL (0.5-4.7); ABSOLUTE MONOCYTES (AUTO) 0.4 10^3/uL (0.1-1.4); BASOPHILS % (AUTO) 0.3 % (0-2); EOSINOPHILS % (AUTO) 0.2 % (0-6); HEMATOCRIT 23.5 % (37.9-51.0); LYMPHOCYTES % (AUTO) 8.2 % (13-45); MEAN CORPUSCULAR HEMOGLOBIN 27.2 pg (27.0-33.4); MEAN CORPUSCULAR HGB CONC 33.6 g/dL (32.0-36.0); MEAN CORPUSCULAR VOLUME 81 fl (80-97); PLATELET COUNT 227 10^3/uL (150-450); SEGMENTED NEUTROPHILS % (AUTO) 84.3 % (42-78); TOTAL CELLS COUNTED % (AUTO) 100 %; WHITE BLOOD COUNT 5.9 10^3/uL (4.0-10.5)
[2018-02-06 06:45] LABS: ANION GAP 7 (5-19); BLOOD UREA NITROGEN 41 mg/dL (7-20); CALCIUM 9.2 mg/dL (8.4-10.2); CARBON DIOXIDE 28 mmol/L (22-30); CHLORIDE 102 mmol/L (98-107); GLUCOSE 121 mg/dL (75-110); POTASSIUM 4.9 mmol/L (3.6-5.0)
[2018-02-06 06:48] LABS: HEMOGLOBIN 7.9 g/dL (13.5-17.0)
[2018-02-06 07:24] LABS: ABSOLUTE RETICS # 0.018 10^6/uL (0.028-0.122); RETICULOCYTE COUNT (AUTO) 0.62 % (0.66-2.85)
[2018-02-06 08:48] LABS: FOLATE > 20.00 ng/mL (>2.76); IRON(TIBC) < 10.1 ug/dL (49-181)
[2018-02-06] MEDS: DOCUSATE SODIUM 100 MG CAPSULE PO SCH ×2 (09:25→17:20)
[2018-02-06] MEDS: PREDNISONE 20 MG TABLET PO SCH ×2 (09:25→17:21)
[2018-02-06] MEDS: CLONIDINE HCL 0.1 MG TABLET PO SCH ×2 (09:25→22:57)
[2018-02-06] MEDS: CYCLOSPORINE MODIFIED 100 MG PO SCH ×2 (09:26→22:59)
[2018-02-06] MEDS: CYCLOSPORINE, MODIFIED 25 MG CAPSULE PO SCH (09:26)
[2018-02-06] MEDS: NIFEDIPINE 30 MG TAB.ER.24 PO SCH ×2 (09:34→22:59)
[2018-02-06] MEDS ORDERED: IRON SUCROSE COMPLEX INJ/PF 100 MG/5 ML SDV IV ONE (11:30)
--- NOTE | 2018-02-06 15:10 | Progress Note ---
Provider Note Provider Note: Lasix and Benazepril dosages reduced due to slight azotemia, can reevaluate and adjust meds as needed
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
[2018-02-06] MEDS ORDERED: NORMAL SALINE 1000 ML 1,000 ML IV SCH (16:45)
--- NOTE | 2018-02-06 18:13 | PDOC CONSULTATION ---
Consultation Consult Date: 02/06/18 Consult reason:: Questionable bursitis of the left elbow History of Present Illness Admission Date/PCP: 02/06/18 02:27 BAILEE ELKINS MD History of Present Illness: DASHAWN SALEH is a 67 year old male admitted for multiple medical reasons. Patient also having some redness and erythema and pain at the left elbow for last several days. History of gout. Denies any fevers or chills or paresthesias. Consulted orthopedics for concern for septic bursitis of the left elbow. Patient denies any drainage or fluctuance or masses of the left elbow. Complains of pain with attempting flexion of the elbow but denies any locking or mechanical symptoms at the elbow. Paresthesias or recent trauma or injury to the left elbow. Denies any surgery to the left elbow. Past Medical History Cardiac Medical History: Reports: Hyperlipidema, Hypertension Pulmonary Medical History: Denies: Tuberculosis Neurological Medical History: Denies: Seizures Renal/ Medical History: Reports: End Stage Renal Disease GI Medical History: Reports: Gastroesophageal Reflux Disease, Hiatal Hernia Musculoskeltal Medical History: Reports: Arthritis, Gout Psychiatric Medical History: Denies: Depression Past Surgical History Past Surgical History: Reports: Orthopedic Surgery - left hip replacement, Vascular Surgery - Dialysis shunt and fistula before his kidney transplant Social History Lives with: Family Smoking Status: Unknown if Ever Smoked Frequency of Alcohol Use: None Hx Recreational Drug Use: No Drugs: None Hx Prescription Drug Abuse: No - Advance Directive Resuscitation Status: Full Code Family History Family History: Arthritis, CAD, Hyperlipidemia, Hypertension, Malignancy Parental Family History Reviewed: No Children Family History Reviewed: No Sibling(s) Family History Reviewed.: No Medication/Allergy Home Medications: Atorvastatin Calcium [Lipitor 20 mg Tablet] 20 mg PO QHS 03/08/17 Benazepril HCl [Lotensin 20 mg Tablet] 20 mg PO Q12 03/08/17 Clonidine HCl [Catapres 0.3 mg Tablet] 0.3 mg PO Q12 03/08/17 Cyclosporine, Modified [Cyclosporine Modified] 25 mg PO DAILY 03/08/17 Cyclosporine, Modified [Cyclosporine Modified] 100 mg PO Q12 03/08/17 Multivitamin [Tab-A-Vilma (Multiple Vitamin) Tablet] 1 tab PO DAILY 03/08/17 Mycophenolate Mofetil [Cellcept 250 mg Capsule] 1,000 mg PO Q12 03/08/17 Nifedipine [Nifedipine ER] 60 mg PO Q12 03/08/17 Allopurinol [Zyloprim 300 mg Tablet] 300 mg PO DAILY 02/06/18 Amox Tr/Potassium Clavulanate [Augmentin 875-125 mg Tablet] 1 tab PO Q12 MDD FILLED 01/30 FOR 10 DAY SUPPLY 02/06/18 Furosemide [Lasix 40 mg Tablet] 20 mg PO QAM 02/06/18 Magnesium Oxide [Magnesium] 500 mg PO Q12 02/06/18 Prednisone [Deltasone 5 mg Tablet] 5 mg PO DAILY 02/06/18 Allergies/Adverse Reactions: povidone-iodine [From Betadine] Adverse Reaction (Verified 03/08/17 09:52) soap [From Betadine] Adverse Reaction (Verified 03/08/17 09:52) Review of Systems Review of Systems: Constitutional: [PRESENT: as per HPI. ABSENT: chills, fever(s), headache(s), weight gain, weight loss] Eyes: [ABSENT: visual disturbances] Ears: [ABSENT: hearing changes] Cardiovascular: [ABSENT: chest pain, dyspnea on exertion, edema, orthropnea, palpitations] Respiratory: [ABSENT: cough, hemoptysis] Gastrointestinal: [ABSENT: abdominal pain, constipation, diarrhea, hematemesis, hematochezia, nausea, vomiting] Genitourinary: [ABSENT: dysuria, hematuria] Musculoskeletal: As per HPI Integumentary: [ABSENT: rash, wounds] Neurological: [ABSENT: abnormal gait, abnormal speech, confusion, dizziness, focal weakness, syncope] Psychiatric: [ABSENT: anxiety, depression, homicidal ideation, suicidal ideation ] Endocrine: [ABSENT: cold intolerance, heat intolerance, menstrual abnormalities , polydipsia, polyuria] Hematologic/Lymphatic: [ABSENT: easy bleeding, easy bruising, lymphadenopathy] Physical Exam Vital Signs: Temp Pulse Resp BP Pulse Ox 36.9 C 79 16 141/75 H 98 02/06/18 15:22 02/06/18 15:22 02/06/18 15:22 02/06/18 15:22 02/06/18 15:22 Intake & Output 02/05/18 02/06/18 02/07/18 06:59 06:59 06:59 Intake Total 318 Output Total 1100 Balance -782 Weight 79.5 kg General appearance: PRESENT: no acute distress Head exam: PRESENT: atraumatic, normocephalic Eye exam: PRESENT: EOMI. ABSENT: nystagmus Ear exam: PRESENT: normal external ear exam Mouth exam: PRESENT: neck supple Neck exam: ABSENT: lymphadenopathy, thyromegaly Respiratory exam: PRESENT: symmetrical, unlabored. ABSENT: accessory muscle use Cardiovascular exam: PRESENT: RRR Pulses: PRESENT: normal dorsalis pedis pul Vascular exam: PRESENT: normal capillary refill GI/Abdominal exam: PRESENT: soft Neurological exam: PRESENT: alert, awake, oriented to person, oriented to place , oriented to time, oriented to situation Psychiatric exam: PRESENT: appropriate affect, normal mood Skin exam: PRESENT: erythema, intact. ABSENT: rash, skin tears Adult Front & Back Image: 1 - Erythema warmth and swelling over the posterior aspect of the left elbow. End of motion is about -20 degrees of extension to about 90 degrees of flexion. Pronation supination are intact. He is neurovascular intact distally. Capillary refill and radial pulse Results Laboratory Results: 02/06/18 05:12 02/06/18 05:12 02/06/18 02/06/18 02/06/18 05:12 05:12 05:12 WBC 5.9 RBC 2.90 L Hgb 7.9 L Hct 23.5 L MCV 81 MCH 27.2 MCHC 33.6 RDW 14.0 Plt Count 227 Seg Neutrophils % 84.3 H Lymphocytes % 8.2 L Monocytes % 7.0 Eosinophils % 0.2 Basophils % 0.3 Absolute Neutrophils 5.0 Absolute Lymphocytes 0.5 Absolute Monocytes 0.4 Absolute Eosinophils 0.0 Absolute Basophils 0.0 Retic Count (auto) 0.62 L Absolute Retic 0.018 L Sodium 137.0 Potassium 4.9 Chloride 102 Carbon Dioxide 28 Anion Gap 7 BUN 41 H Creatinine 1.97 H Est GFR ( Amer) 41 L Est GFR (Non-Af Amer) 34 L Glucose 121 H Calcium 9.2 Iron TIBC % Saturation Ferritin Vitamin B12 Folate 02/06/18 05:12 WBC RBC Hgb Hct MCV MCH MCHC RDW Plt Count Seg Neutrophils % Lymphocytes % Monocytes % Eosinophils % Basophils % Absolute Neutrophils Absolute Lymphocytes Absolute Monocytes Absolute Eosinophils Absolute Basophils Retic Count (auto) Absolute Retic Sodium Potassium Chloride Carbon Dioxide Anion Gap BUN Creatinine Est GFR ( Amer) Est GFR (Non-Af Amer) Glucose Calcium Iron < 10.1 L TIBC 199 L % Saturation UNABLE TO CALCULATE Ferritin 292.00 Vitamin B12 835.0 Folate > 20.00 Impressions: Ankle X-Ray 02/05/18 20:11 FINDINGS/IMPRESSION: Generalized osteopenia is present. No acute fracture or malalignment. Pes planus is present. Ankle mortise is preserved on these nonstress views. Mild degenerative changes of the hindfoot Mild bimalleolar soft tissue swelling. Vascular calcifications are present. Elbow X-Ray 02/05/18 23:06 IMPRESSION: There is significant soft tissue swelling around the left elbow joint without any acute bony trauma. Degenerative changes are seen around the left elbow joint 2010 [employer]- All Rights Reserved Status: Image reviewed by nh Assessment & Plan - Diagnosis (1) Cellulitis Qualifiers: Site of cellulitis: extremity Site of cellulitis of extremity: upper extremity Laterality: left Qualified Code(s): L03.114 - Cellulitis of left upper limb Is this a current diagnosis for this admission?: Yes (2) Gout Qualifiers: Gout site: elbow Chronicity: acute Laterality: left Is this a current diagnosis for this admission?: Yes - Plan Summary Plan Summary: 67-year-old gentleman with left elbow swelling. There is no fluctuance or masses nor even any lacerations or puncture wounds to categorize this as a septic bursitis. I do believe he has some type of cellulitis and with history of gout could be gouty arthropathy as well. X-rays also show mild arthritic changes of the elbow. There is no need for orthopedic surgical intervention. Patient can follow-up as an outpatient. Recommend antibiotics per primary team.
[2018-02-06] MEDS ORDERED: (PENDING PHARMACY ID) (Magnesium Oxide [Magnesium] 500 MG) PO SCH (22:00)
[2018-02-06] MEDS ORDERED: BENAZEPRIL HCL 20 MG TABLET PO SCH (22:00)
[2018-02-06] MEDS: ATORVASTATIN CALCIUM 20 MG TABLET PO SCH (22:57)
[2018-02-06] MEDS: MAGNESIUM OXIDE 400 MG TABLET PO SCH (22:57)
[2018-02-06] MEDS: MYCOPHENOLATE MOFETIL 250 MG CAPSULE PO SCH (22:59)
[2018-02-06] MEDS: VANCOMYCIN HCL 1,250 MG in DEXTROSE 5%-WATER 250 ML IV SCH (23:11)
[2018-02-07] MEDS ORDERED: NORMAL SALINE 1000 ML 1,000 ML IV PRN (03:47)
[2018-02-07 04:42] LABS: HEMATOCRIT 23.2 % (37.9-51.0); MEAN CORPUSCULAR HEMOGLOBIN 26.4 pg (27.0-33.4); MEAN CORPUSCULAR HGB CONC 32.7 g/dL (32.0-36.0); MEAN CORPUSCULAR VOLUME 81 fl (80-97); PLATELET COUNT 214 10^3/uL (150-450); RED BLOOD COUNT 2.87 10^6/uL (4.35-5.55); RED CELL DISTRIBUTION WIDTH 14.1 % (11.5-14.0); WHITE BLOOD COUNT 4.6 10^3/uL (4.0-10.5)
[2018-02-07 04:50] LABS: ANION GAP 10 (5-19); BLOOD UREA NITROGEN 33 mg/dL (7-20); CALCIUM 9.3 mg/dL (8.4-10.2); CARBON DIOXIDE 21 mmol/L (22-30); CHLORIDE 108 mmol/L (98-107); GLUCOSE 198 mg/dL (75-110); POTASSIUM 5.3 mmol/L (3.6-5.0); SODIUM 138.8 mmol/L (137-145)
[2018-02-07 05:04] LABS: ABSOLUTE MONOCYTES # (MANUAL) 0.1 10^3/uL (0.1-1.4); ABSOLUTE NEUTROPHILS# (MANUAL) 4.5 10^3/uL (1.7-8.2); BAND NEUTROPHILS % (MANUAL) 1 % (3-5); BASOPHILS % (MANUAL) 0 % (0-2); EOSINOPHILS % (MANUAL) 0 % (0-6); LYMPHOCYTES % (MANUAL) 1 % (13-45); MONOCYTES % (MANUAL) 2 % (3-13); SEGMENTED NEUTROPHILS % (MAN) 96 % (42-78); TOTAL CELLS COUNTED 100
[2018-02-07 05:05] LABS: ANISOCYTOSIS SLIGHT; PLATELET COMMENT ADEQUATE
[2018-02-07 05:07] LABS: HEMOGLOBIN 7.6 g/dL (13.5-17.0)
[2018-02-07] MEDS: CEFEPIME 1 GM/D5W RTU 1 GM/50 ML RTUPB IV SCH ×2 (06:05→18:18)
[2018-02-07] MEDS: HEPARIN SOD (PORCINE) 5,000 UNIT/ML 1 ML SYRINGE SUBCUT SCH ×3 (06:05→22:26)
[2018-02-07] MEDS ORDERED: FUROSEMIDE 20 MG TABLET PO SCH (08:00)
[2018-02-07] MEDS ORDERED: FUROSEMIDE 40 MG TABLET PO SCH (08:00)
--- NOTE | 2018-02-07 08:36 | RADIOLOGY REPORT (SQ) ---
EXAM DESCRIPTION: DUPLEX ART/MOISES FLOW COMPLETE COMPLETED DATE/TIME: 02/07/2018 8:08 am REASON FOR STUDY: SVETLANA, patient has a kidney transplant. COMPARISON: None. TECHNIQUE: Realtime and static grayscale images acquired. Selected color Doppler, velocities and spe ctral images recorded. LIMITATIONS: None. FINDINGS: [place] KIDNEYS: RIGHT KIDNEY: Enlarged, measuring 18.1 cm. Multiple cysts. No solid or suspicious masses. No h ydronephrosis. No calcifications. LEFT KIDNEY: Enlarged, measuring 20.9 cm. Multiple cysts. No solid or suspicious masses. No hy dronephrosis. No calcifications. OTHER FINDINGS: No other significant finding. TRANSPLANT KIDNEY: RENAL ARTERY VELOCITIES: 95.4 cm/sec. Segmental artery velocity 58.1 cm/sec. RENAL VEIN: Color doppler flow present, patent. VELOCITY RATIO: 1.16. Normal waveforms. RESISTIVE INDEX: 0.67-0.73. KIDNEY: Normal size. No significant pathology. BLADDER: Normal. OTHER: No other significant finding. IMPRESSION: NO DOPPLER EVIDENCE OF HEMODYNAMICALLY SIGNIFICANT RENAL ARTERY STENOSIS. NO ABNORMAL S ONOGRAPHIC FINDINGS IN THE TRANSPLANT KIDNEY. ENLARGED [place] KIDNEYS WITH MULTIPLE CYSTS SECONDARY TO POLYCYSTIC KIDNEY DISEASE. COMMENT: NORMAL RENAL ARTERY/AORTA VELOCITY RATIO IS LESS THAN OR EQUAL TO 3.5. TECHNICAL DOCUMENTATION: JOB ID: [id number] [employer]- All Rights Reserved Reading location - IP/workstation name: [email or web address]
[2018-02-07] MEDS: CLONIDINE HCL 0.1 MG TABLET PO SCH ×2 (09:33→22:24)
[2018-02-07] MEDS: MULTIVITAMIN TABLET PO SCH (09:33)
[2018-02-07] MEDS: ALLOPURINOL 300 MG TABLET PO SCH (09:33)
[2018-02-07] MEDS: DOCUSATE SODIUM 100 MG CAPSULE PO SCH ×2 (09:33→18:53)
[2018-02-07] MEDS: NIFEDIPINE 30 MG TAB.ER.24 PO SCH ×2 (09:33→22:28)
[2018-02-07] MEDS: BENAZEPRIL HCL 20 MG TABLET PO SCH (09:34)
[2018-02-07] MEDS: MAGNESIUM OXIDE 400 MG TABLET PO SCH ×2 (09:34→22:25)
[2018-02-07] MEDS: PREDNISONE 20 MG TABLET PO SCH ×2 (09:34→18:18)
[2018-02-07] MEDS: CYCLOSPORINE, MODIFIED 25 MG CAPSULE PO SCH (09:35)
[2018-02-07] MEDS: MYCOPHENOLATE MOFETIL 250 MG CAPSULE PO SCH ×2 (09:35→22:27)
[2018-02-07] MEDS: CYCLOSPORINE MODIFIED 100 MG PO SCH ×2 (09:35→22:25)
[2018-02-07] MEDS ORDERED: PREDNISONE 5 MG TABLET PO SCH (10:00)
--- NOTE | 2018-02-07 10:15 | PDOC PROGRESS REPORT ---
Subjective Progress Note for:: 02/07/18 Subjective:: Patient is lying in bed comfortably His left elbow is still swollen but he has less pain His hemoglobin decreased slightly today but he reports no bleeding His potassium slightly elevated at 5.3 Reason For Visit: SEPTIC BURSITIS, RENAL TRANSPLANT C ARF Physical Exam Vital Signs: Temp Pulse Resp BP Pulse Ox 98.6 F 70 16 141/70 H 99 02/07/18 07:37 02/07/18 07:37 02/07/18 07:37 02/07/18 07:37 02/07/18 07:37 Intake & Output 02/06/18 02/07/18 02/08/18 06:59 06:59 06:59 Intake Total 1750 Output Total 2049 Balance -300 Weight 175 lb 4.28 oz 176 lb 9.444 oz General appearance: PRESENT: no acute distress, well-developed, well-nourished Head exam: PRESENT: atraumatic, normocephalic Eye exam: PRESENT: conjunctiva pink, EOMI, PERRLA. ABSENT: scleral icterus Ear exam: PRESENT: normal external ear exam Mouth exam: PRESENT: moist, tongue midline Neck exam: ABSENT: carotid bruit, JVD, lymphadenopathy, thyromegaly Respiratory exam: PRESENT: clear to auscultation massiel. ABSENT: rales, rhonchi, wheezes Cardiovascular exam: PRESENT: RRR. ABSENT: diastolic murmur, rubs, systolic murmur Pulses: PRESENT: normal dorsalis pedis pul Vascular exam: PRESENT: normal capillary refill GI/Abdominal exam: PRESENT: normal bowel sounds, soft. ABSENT: distended, guarding, mass, organolmegaly, rebound, tenderness Rectal exam: PRESENT: deferred Extremities exam: PRESENT: full ROM. ABSENT: calf tenderness, clubbing, pedal edema Musculoskeletal exam: PRESENT: other - Left elbow is swollen and warm but not red Neurological exam: PRESENT: alert, awake, oriented to person, oriented to place , oriented to time, oriented to situation, CN II-XII grossly intact. ABSENT: motor sensory deficit Psychiatric exam: PRESENT: appropriate affect, normal mood. ABSENT: homicidal ideation, suicidal ideation Results Laboratory Results: 02/07/18 04:18 02/07/18 04:18 02/07/18 02/07/18 04:18 04:18 WBC 4.6 RBC 2.87 L Hgb 7.6 L Hct 23.2 L MCV 81 MCH 26.4 L MCHC 32.7 RDW 14.1 H Plt Count 214 Seg Neutrophils % Not Reportable Lymphocytes % Not Reportable Monocytes % Not Reportable Eosinophils % Not Reportable Basophils % Not Reportable Absolute Neutrophils Not Reportable Absolute Lymphocytes Not Reportable Absolute Monocytes Not Reportable Absolute Eosinophils Not Reportable Absolute Basophils Not Reportable Sodium 138.8 Potassium 5.3 H Chloride 108 H Carbon Dioxide 21 L Anion Gap 10 BUN 33 H Creatinine 1.44 H Est GFR ( Amer) 59 L Est GFR (Non-Af Amer) 49 L Glucose 198 H Calcium 9.3 Impressions: Ankle X-Ray 02/05/18 20:11 FINDINGS/IMPRESSION: Generalized osteopenia is present. No acute fracture or malalignment. Pes planus is present. Ankle mortise is preserved on these nonstress views. Mild degenerative changes of the hindfoot Mild bimalleolar soft tissue swelling. Vascular calcifications are present. Elbow X-Ray 02/05/18 23:06 IMPRESSION: There is significant soft tissue swelling around the left elbow joint without any acute bony trauma. Degenerative changes are seen around the left elbow joint 2010 [employer]- All Rights Reserved Renal Artery Duplex 02/07/18 07:00 IMPRESSION: NO DOPPLER EVIDENCE OF HEMODYNAMICALLY SIGNIFICANT RENAL ARTERY STENOSIS. NO ABNORMAL SONOGRAPHIC FINDINGS IN THE TRANSPLANT KIDNEY. ENLARGED [place] KIDNEYS WITH MULTIPLE CYSTS SECONDARY TO POLYCYSTIC KIDNEY DISEASE. Assessment & Plan - Diagnosis (1) Acute renal failure Is this a current diagnosis for this admission?: Yes Plan: Holding Lasix Nephrology following Monitor electrolytes and renal function (2) Cellulitis Qualifiers: Site of cellulitis: extremity Site of cellulitis of extremity: upper extremity Laterality: left Qualified Code(s): L03.114 - Cellulitis of left upper limb Is this a current diagnosis for this admission?: Yes Plan: Evaluated by orthopedic surgery Recommendation to treat cellulitis Continue vancomycin and cefepime Monitor clinical response (3) Gout Qualifiers: Gout site: elbow Chronicity: acute Laterality: left Is this a current diagnosis for this admission?: Yes Plan: Continue prednisone and allopurinol (4) Immunocompromised state due to drug therapy Is this a current diagnosis for this admission?: No (5) Renal transplant, status post Is this a current diagnosis for this admission?: No (6) Hyperkalemia Is this a current diagnosis for this admission?: Yes Plan: Continue to monitor renal function and potassium levels (7) Hypertension Qualifiers: Hypertension type: essential hypertension Qualified Code(s): I10 - Essential (primary) hypertension Is this a current diagnosis for this admission?: Yes Plan: Continue current medications
[2018-02-07] MEDS: MAG HYDROX/AL HYDROX/SIMETH SUSP 30 ML UDCUP PO PRN (11:42)
[2018-02-07 11:44] LABS: ABSOLUTE RETICS # 0.029 10^6/uL (0.028-0.122); RETICULOCYTE COUNT (AUTO) 0.97 % (0.66-2.85)
[2018-02-07 12:07] LABS: IRON(TIBC) 89.2 ug/dL (49-181)
[2018-02-07 13:28] LABS: FOLATE > 20.00 ng/mL (>2.76)
--- NOTE | 2018-02-07 16:05 | XCELERA REPORT ---
[address] [address] Upper Extremity Venous Evaluation Name: DASHAWN SALEH Age: 67 yrs Gender: Male : 1950 Patient Status: Inpatient Patient Location: [facility]^A Study Date: 02/07/2018 02:16 PM Procedure: Unilateral duplex scan of the left upper extremity veins was performed, including responses to compression and other maneuvers. Reason For Study: swelling/fistula Ordering Physician: TRUDI WHITING Performed By: Debra Hill Left Sided Venous Evaluation Old, unused AV graft noted. Normal vessel filling wall to wall, compression and augmentation as well as Colour flow down to the infrageniculate veins. Interpretation Summary No duplex evidence of DVT or obstruction in the left upper extremity. : TRUDI WHITING > Henrique Escobar
--- NOTE | 2018-02-07 16:19 | PDOC CONSULTATION ---
Consultation Consult Date: 02/07/18 Consult reason:: Occult positive stool in patient with chronic anemia History of Present Illness Admission Date/PCP: 02/06/18 02:27 BAILEE ELKINS MD History of Present Illness: DASHAWN SALEH is a 67 year old male Past Medical History Cardiac Medical History: Reports: Hyperlipidema, Hypertension Pulmonary Medical History: Denies: Tuberculosis Neurological Medical History: Denies: Seizures Renal/ Medical History: Reports: End Stage Renal Disease GI Medical History: Reports: Gastroesophageal Reflux Disease, Hiatal Hernia Musculoskeltal Medical History: Reports: Arthritis, Gout Psychiatric Medical History: Denies: Depression Past Surgical History Past Surgical History: Reports: Orthopedic Surgery - left hip replacement, Vascular Surgery - Dialysis shunt and fistula before his kidney transplant Social History Lives with: Family Smoking Status: Unknown if Ever Smoked Frequency of Alcohol Use: None Hx Recreational Drug Use: No Drugs: None Hx Prescription Drug Abuse: No - Advance Directive Resuscitation Status: Full Code Family History Family History: Arthritis, CAD, Hyperlipidemia, Hypertension, Malignancy Parental Family History Reviewed: Yes Children Family History Reviewed: Yes Sibling(s) Family History Reviewed.: Yes Medication/Allergy Home Medications: Atorvastatin Calcium [Lipitor 20 mg Tablet] 20 mg PO QHS 03/08/17 Benazepril HCl [Lotensin 20 mg Tablet] 20 mg PO Q12 03/08/17 Clonidine HCl [Catapres 0.3 mg Tablet] 0.3 mg PO Q12 03/08/17 Cyclosporine, Modified [Cyclosporine Modified] 25 mg PO DAILY 03/08/17 Cyclosporine, Modified [Cyclosporine Modified] 100 mg PO Q12 03/08/17 Multivitamin [Tab-A-Vilma (Multiple Vitamin) Tablet] 1 tab PO DAILY 03/08/17 Mycophenolate Mofetil [Cellcept 250 mg Capsule] 1,000 mg PO Q12 03/08/17 Nifedipine [Nifedipine ER] 60 mg PO Q12 03/08/17 Allopurinol [Zyloprim 300 mg Tablet] 300 mg PO DAILY 02/06/18 Amox Tr/Potassium Clavulanate [Augmentin 875-125 mg Tablet] 1 tab PO Q12 MDD FILLED 01/30 FOR 10 DAY SUPPLY 02/06/18 Furosemide [Lasix 40 mg Tablet] 20 mg PO QAM 02/06/18 Magnesium Oxide [Magnesium] 500 mg PO Q12 02/06/18 Prednisone [Deltasone 5 mg Tablet] 5 mg PO DAILY 02/06/18 Allergies/Adverse Reactions: povidone-iodine [From Betadine] Adverse Reaction (Verified 03/08/17 09:52) soap [From Betadine] Adverse Reaction (Verified 03/08/17 09:52) Physical Exam Vital Signs: Temp Pulse Resp BP Pulse Ox 98.4 F 62 14 155/74 H 100 02/07/18 15:11 02/07/18 15:11 02/07/18 15:11 02/07/18 15:11 02/07/18 15:11 Intake & Output 02/06/18 02/07/18 02/08/18 06:59 06:59 06:59 Intake Total 1750 Output Total 2050 Balance -300 Weight 79.5 kg 80.1 kg Results Laboratory Results: 02/07/18 04:18 02/07/18 04:18 02/07/18 02/07/18 02/07/18 04:18 04:18 10:52 WBC 4.6 RBC 2.87 L Hgb 7.6 L Hct 23.2 L MCV 81 MCH 26.4 L MCHC 32.7 RDW 14.1 H Plt Count 214 Seg Neutrophils % Not Reportable Lymphocytes % Not Reportable Monocytes % Not Reportable Eosinophils % Not Reportable Basophils % Not Reportable Absolute Neutrophils Not Reportable Absolute Lymphocytes Not Reportable Absolute Monocytes Not Reportable Absolute Eosinophils Not Reportable Absolute Basophils Not Reportable Retic Count (auto) Absolute Retic Sodium 138.8 Potassium 5.3 H Chloride 108 H Carbon Dioxide 21 L Anion Gap 10 BUN 33 H Creatinine 1.44 H Est GFR ( Amer) 59 L Est GFR (Non-Af Amer) 49 L Glucose 198 H Calcium 9.3 Iron TIBC % Saturation Ferritin Vitamin B12 Folate Stool Occult Blood POSITIVE 02/07/18 02/07/18 11:23 11:23 WBC RBC Hgb Hct MCV MCH MCHC RDW Plt Count Seg Neutrophils % Lymphocytes % Monocytes % Eosinophils % Basophils % Absolute Neutrophils Absolute Lymphocytes Absolute Monocytes Absolute Eosinophils Absolute Basophils Retic Count (auto) 0.97 Absolute Retic 0.029 Sodium Potassium Chloride Carbon Dioxide Anion Gap BUN Creatinine Est GFR ( Amer) Est GFR (Non-Af Amer) Glucose Calcium Iron 89.2 TIBC 206 L % Saturation 43 Ferritin 366.00 Vitamin B12 832.0 Folate > 20.00 Stool Occult Blood Impressions: Ankle X-Ray 02/05/18 20:11 FINDINGS/IMPRESSION: Generalized osteopenia is present. No acute fracture or malalignment. Pes planus is present. Ankle mortise is preserved on these nonstress views. Mild degenerative changes of the hindfoot Mild bimalleolar soft tissue swelling. Vascular calcifications are present. Elbow X-Ray 02/05/18 23:06 IMPRESSION: There is significant soft tissue swelling around the left elbow joint without any acute bony trauma. Degenerative changes are seen around the left elbow joint 2010 [employer]- All Rights Reserved Renal Artery Duplex 02/07/18 07:00 IMPRESSION: NO DOPPLER EVIDENCE OF HEMODYNAMICALLY SIGNIFICANT RENAL ARTERY STENOSIS. NO ABNORMAL SONOGRAPHIC FINDINGS IN THE TRANSPLANT KIDNEY. ENLARGED [place] KIDNEYS WITH MULTIPLE CYSTS SECONDARY TO POLYCYSTIC KIDNEY DISEASE. Assessment & Plan - Diagnosis (1) Chronic blood loss anemia Is this a current diagnosis for this admission?: Yes Plan: With heme positive stools; doubt gastrointestinal bleed secondary to occult source Recommendations: 1. Dr. Arechiga will perform upper and lower endoscopy on February 10 2. Orders written,bowel prep ordered for Saturday, February 09; please call surgical list extrusion press operator Saturday if bowel prep inadequate
[2018-02-07] MEDS ORDERED: PEG 3350/NA SULF,BICARB,CL/KCL 4000 ML PO ONE (17:30)
[2018-02-07] MEDS: VANCOMYCIN HCL 1,250 MG in DEXTROSE 5%-WATER 250 ML IV SCH (22:24)
[2018-02-07] MEDS: ATORVASTATIN CALCIUM 20 MG TABLET PO SCH (22:25)
[2018-02-08 05:48] LABS: HEMATOCRIT 22.3 % (37.9-51.0); MEAN CORPUSCULAR HEMOGLOBIN 26.5 pg (27.0-33.4); MEAN CORPUSCULAR HGB CONC 32.8 g/dL (32.0-36.0); MEAN CORPUSCULAR VOLUME 81 fl (80-97); PLATELET COUNT 200 10^3/uL (150-450); RED BLOOD COUNT 2.75 10^6/uL (4.35-5.55); RED CELL DISTRIBUTION WIDTH 14.2 % (11.5-14.0); WHITE BLOOD COUNT 5.2 10^3/uL (4.0-10.5)
[2018-02-08 05:54] LABS: HEMOGLOBIN 7.3 g/dL (13.5-17.0)
[2018-02-08 06:11] LABS: ALANINE AMINOTRANSFERASE 20 U/L (21-72); ALBUMIN 2.8 g/dL (3.5-5.0); ALKALINE PHOSPHATASE 45 U/L (38-126); ANION GAP 8 (5-19); ASPARTATE AMINO TRANSFERASE 17 U/L (17-59); BILIRUBIN,DIRECT 0.3 mg/dL (0.0-0.4); BILIRUBIN,TOTAL 0.3 mg/dL (0.2-1.3); BLOOD UREA NITROGEN 29 mg/dL (7-20); CALCIUM 9.4 mg/dL (8.4-10.2); CARBON DIOXIDE 21 mmol/L (22-30); CHLORIDE 111 mmol/L (98-107); GLUCOSE 154 mg/dL (75-110); POTASSIUM 5.8 mmol/L (3.6-5.0); TOTAL PROTEIN 5.7 g/dL (6.3-8.2)
[2018-02-08] MEDS: HEPARIN SOD (PORCINE) 5,000 UNIT/ML 1 ML SYRINGE SUBCUT SCH ×3 (06:21→21:43)
[2018-02-08] MEDS: CEFEPIME 1 GM/D5W RTU 1 GM/50 ML RTUPB IV SCH ×2 (06:22→17:54)
[2018-02-08] MEDS: NIFEDIPINE 30 MG TAB.ER.24 PO SCH ×2 (09:09→21:41)
[2018-02-08] MEDS: MYCOPHENOLATE MOFETIL 250 MG CAPSULE PO SCH ×2 (09:10→21:43)
[2018-02-08] MEDS: ALLOPURINOL 300 MG TABLET PO SCH (09:10)
[2018-02-08] MEDS: BENAZEPRIL HCL 20 MG TABLET PO SCH (09:10)
[2018-02-08] MEDS: CYCLOSPORINE, MODIFIED 25 MG CAPSULE PO SCH (09:11)
[2018-02-08] MEDS: CYCLOSPORINE MODIFIED 100 MG PO SCH ×2 (09:11→21:42)
[2018-02-08] MEDS: CLONIDINE HCL 0.1 MG TABLET PO SCH ×2 (09:11→21:39)
[2018-02-08] MEDS: MULTIVITAMIN TABLET PO SCH (09:12)
[2018-02-08] MEDS: PREDNISONE 20 MG TABLET PO SCH ×2 (09:12→17:54)
[2018-02-08] MEDS: MAGNESIUM OXIDE 400 MG TABLET PO SCH ×2 (09:12→21:40)
[2018-02-08] MEDS: DOCUSATE SODIUM 100 MG CAPSULE PO SCH ×2 (09:19→17:31)
--- NOTE | 2018-02-08 12:02 | PDOC PROGRESS REPORT ---
Subjective Progress Note for:: 02/08/18 Subjective:: Patient is lying in bed comfortably Swelling of the left elbow has improved Hemoglobin decreased to 7.3 and occult blood was positive Schedule for colonoscopy on Saturday Potassium is more elevated at 5.8 Episodes of bradycardia but asymptomatic Reason For Visit: SEPTIC BURSITIS, RENAL TRANSPLANT C ARF Physical Exam Vital Signs: Temp Pulse Resp BP Pulse Ox 98.8 F 51 L 14 131/66 H 100 02/08/18 08:23 02/08/18 08:23 02/08/18 08:23 02/08/18 08:23 02/08/18 08:23 Intake & Output 02/07/18 02/08/18 02/09/18 06:59 06:59 06:59 Intake Total 1800 1704 Output Total 2049 1975 Balance -250 -271 Weight 176 lb 9.444 oz 169 lb 12.095 oz General appearance: PRESENT: no acute distress, well-developed, well-nourished Head exam: PRESENT: atraumatic, normocephalic Eye exam: PRESENT: conjunctiva pink, EOMI, PERRLA. ABSENT: scleral icterus Ear exam: PRESENT: normal external ear exam Mouth exam: PRESENT: moist, tongue midline Neck exam: ABSENT: carotid bruit, JVD, lymphadenopathy, thyromegaly Respiratory exam: PRESENT: clear to auscultation massiel. ABSENT: rales, rhonchi, wheezes Cardiovascular exam: PRESENT: RRR. ABSENT: diastolic murmur, rubs, systolic murmur Pulses: PRESENT: normal dorsalis pedis pul Vascular exam: PRESENT: normal capillary refill GI/Abdominal exam: PRESENT: normal bowel sounds, soft. ABSENT: distended, guarding, mass, organolmegaly, rebound, tenderness Rectal exam: PRESENT: deferred Extremities exam: PRESENT: other - Left elbow and proximal forearm is edematous but decreased from prior exam Neurological exam: PRESENT: alert, awake, oriented to person, oriented to place , oriented to time, oriented to situation, CN II-XII grossly intact. ABSENT: motor sensory deficit Psychiatric exam: PRESENT: appropriate affect, normal mood. ABSENT: homicidal ideation, suicidal ideation Results Laboratory Results: 02/08/18 04:16 02/08/18 04:16 02/07/18 02/08/18 02/08/18 11:23 04:16 04:16 WBC 5.2 RBC 2.75 L Hgb 7.3 L Hct 22.3 L MCV 81 MCH 26.5 L MCHC 32.8 RDW 14.2 H Plt Count 200 Sodium 140.0 Potassium 5.8 H Chloride 111 H Carbon Dioxide 21 L Anion Gap 8 BUN 29 H Creatinine 1.18 Est GFR ( Amer) > 60 Est GFR (Non-Af Amer) > 60 Glucose 154 H Calcium 9.4 Iron 89.2 TIBC 206 L % Saturation 43 Ferritin 366.00 Total Bilirubin 0.3 AST 17 ALT 20 L Alkaline Phosphatase 45 Total Protein 5.7 L Albumin 2.8 L Vitamin B12 832.0 Folate > 20.00 Impressions: Ankle X-Ray 02/05/18 20:11 FINDINGS/IMPRESSION: Generalized osteopenia is present. No acute fracture or malalignment. Pes planus is present. Ankle mortise is preserved on these nonstress views. Mild degenerative changes of the hindfoot Mild bimalleolar soft tissue swelling. Vascular calcifications are present. Elbow X-Ray 02/05/18 23:06 IMPRESSION: There is significant soft tissue swelling around the left elbow joint without any acute bony trauma. Degenerative changes are seen around the left elbow joint 2010 [email or web address] All Rights Reserved Renal Artery Duplex 02/07/18 07:00 IMPRESSION: NO DOPPLER EVIDENCE OF HEMODYNAMICALLY SIGNIFICANT RENAL ARTERY STENOSIS. NO ABNORMAL SONOGRAPHIC FINDINGS IN THE TRANSPLANT KIDNEY. ENLARGED [place] KIDNEYS WITH MULTIPLE CYSTS SECONDARY TO POLYCYSTIC KIDNEY DISEASE. Assessment & Plan - Diagnosis (1) Acute renal failure Is this a current diagnosis for this admission?: Yes Plan: Improved continue to hold Lasix Nephrology following Monitor electrolytes and renal function (2) Cellulitis Qualifiers: Site of cellulitis: extremity Site of cellulitis of extremity: upper extremity Laterality: left Qualified Code(s): L03.114 - Cellulitis of left upper limb Is this a current diagnosis for this admission?: Yes Plan: Evaluated by orthopedic surgery Recommendation to treat cellulitis Continue vancomycin and cefepime Monitor clinical response Will likely need 2-3 days of IV antibiotics (3) Gout Qualifiers: Gout site: elbow Chronicity: acute Laterality: left Is this a current diagnosis for this admission?: Yes Plan: Continue with prednisone and allopurinol (4) Immunocompromised state due to drug therapy Is this a current diagnosis for this admission?: No (5) Renal transplant, status post Is this a current diagnosis for this admission?: No (6) Hyperkalemia Is this a current diagnosis for this admission?: Yes Plan: Hold benazepril continue to monitor renal function and potassium levels (7) Hypertension Qualifiers: Hypertension type: essential hypertension Qualified Code(s): I10 - Essential (primary) hypertension Is this a current diagnosis for this admission?: Yes Plan: Continue clonidine and nifedipine Holding Lasix and benazepril due to increased creatinine and elevated potassium level (8) Bradycardia by electrocardiogram Is this a current diagnosis for this admission?: Yes Plan: Asymptomatic Continue to monitor Check TSH (9) Anemia Is this a current diagnosis for this admission?: Yes Plan: Positive Hemoccult blood Plans for colonoscopy on Saturday Monitor hemoglobin hematocrit and transfuse if needed
--- NOTE | 2018-02-08 20:22 | EKG REPORT ---
SEVERITY:- BORDERLINE ECG - SINUS RHYTHM BORDERLINE T WAVE ABNORMALITIES : Confirmed by: Joana Sandoval MD 08-Feb-2018 20:21:18
[2018-02-08] MEDS: ATORVASTATIN CALCIUM 20 MG TABLET PO SCH (21:40)
[2018-02-08] MEDS: VANCOMYCIN HCL 1,250 MG in DEXTROSE 5%-WATER 250 ML IV SCH (21:42)
[2018-02-08 22:12] LABS: VANCOMYCIN,TROUGH 12.5 ug/mL (5.0-20.0)
[2018-02-09] MEDS ORDERED: PEG 3350/NA SULF,BICARB,CL/KCL 4000 ML PO PRN (05:00)
[2018-02-09 05:04] LABS: HEMATOCRIT 22.4 % (37.9-51.0); MEAN CORPUSCULAR HGB CONC 33.4 g/dL (32.0-36.0); MEAN CORPUSCULAR VOLUME 81 fl (80-97); PLATELET COUNT 210 10^3/uL (150-450); RED BLOOD COUNT 2.77 10^6/uL (4.35-5.55); RED CELL DISTRIBUTION WIDTH 14.6 % (11.5-14.0); WHITE BLOOD COUNT 5.3 10^3/uL (4.0-10.5)
[2018-02-09 05:09] LABS: HEMOGLOBIN 7.5 g/dL (13.5-17.0)
[2018-02-09 05:31] LABS: BLOOD UREA NITROGEN 34 mg/dL (7-20); CALCIUM 9.4 mg/dL (8.4-10.2); GLUCOSE 165 mg/dL (75-110); POTASSIUM 5.7 mmol/L (3.6-5.0)
[2018-02-09] MEDS: HEPARIN SOD (PORCINE) 5,000 UNIT/ML 1 ML SYRINGE SUBCUT SCH ×3 (05:33→22:00)
[2018-02-09 05:36] LABS: ANION GAP 8 (5-19); CARBON DIOXIDE 21 mmol/L (22-30); CHLORIDE 111 mmol/L (98-107); SODIUM 139.6 mmol/L (137-145)
[2018-02-09] MEDS: CEFEPIME 1 GM/D5W RTU 1 GM/50 ML RTUPB IV SCH ×2 (06:08→17:32)
--- NOTE | 2018-02-09 09:33 | PDOC PROGRESS REPORT ---
Subjective Progress Note for:: 02/09/18 Subjective:: Patient is lying in bed comfortably Swelling of the left elbow has improved Hemoglobin stable at 7.5 Patient is occult blood was positive and scheduled for colonoscopy tomorrow Reason For Visit: SEPTIC BURSITIS, RENAL TRANSPLANT C ARF Physical Exam Vital Signs: Temp Pulse Resp BP Pulse Ox 98.6 F 85 18 134/70 H 99 02/09/18 08:00 02/09/18 08:00 02/09/18 08:00 02/09/18 08:00 02/09/18 08:00 Intake & Output 02/08/18 02/09/18 02/10/18 06:59 06:59 06:59 Intake Total 1754 1424 Output Total 19740 Balance -221 -626 Weight 169 lb 12.095 oz 160 lb 0.889 oz General appearance: PRESENT: no acute distress, well-developed, well-nourished Head exam: PRESENT: atraumatic, normocephalic Eye exam: PRESENT: conjunctiva pink, EOMI, PERRLA. ABSENT: scleral icterus Ear exam: PRESENT: normal external ear exam Mouth exam: PRESENT: moist, tongue midline Neck exam: ABSENT: carotid bruit, JVD, lymphadenopathy, thyromegaly Respiratory exam: PRESENT: clear to auscultation massiel. ABSENT: rales, rhonchi, wheezes Cardiovascular exam: PRESENT: RRR. ABSENT: diastolic murmur, rubs, systolic murmur Pulses: PRESENT: normal dorsalis pedis pul Vascular exam: PRESENT: normal capillary refill GI/Abdominal exam: PRESENT: normal bowel sounds, soft. ABSENT: distended, guarding, mass, organolmegaly, rebound, tenderness Rectal exam: PRESENT: deferred Extremities exam: PRESENT: full ROM. ABSENT: calf tenderness, clubbing, pedal edema Neurological exam: PRESENT: alert, awake, oriented to person, oriented to place , oriented to time, oriented to situation, CN II-XII grossly intact. ABSENT: motor sensory deficit Psychiatric exam: PRESENT: appropriate affect, normal mood. ABSENT: homicidal ideation, suicidal ideation Skin exam: PRESENT: dry, intact, warm. ABSENT: cyanosis, rash Results Laboratory Results: 02/09/18 04:02 02/09/18 04:02 02/08/18 02/08/18 02/09/18 04:16 21:42 04:02 WBC 5.3 RBC 2.77 L Hgb 7.5 L Hct 22.4 L MCV 81 MCH 27.0 MCHC 33.4 RDW 14.6 H Plt Count 210 Sodium Potassium Chloride Carbon Dioxide Anion Gap BUN Creatinine 1.23 Est GFR ( Amer) > 60 Est GFR (Non-Af Amer) 59 L Glucose Calcium TSH 0.52 02/09/18 04:02 WBC RBC Hgb Hct MCV MCH MCHC RDW Plt Count Sodium 139.6 Potassium 5.7 H Chloride 111 H Carbon Dioxide 21 L Anion Gap 8 BUN 34 H Creatinine 1.18 Est GFR ( Amer) > 60 Est GFR (Non-Af Amer) > 60 Glucose 165 H Calcium 9.4 TSH Impressions: Ankle X-Ray 02/05/18 20:11 FINDINGS/IMPRESSION: Generalized osteopenia is present. No acute fracture or malalignment. Pes planus is present. Ankle mortise is preserved on these nonstress views. Mild degenerative changes of the hindfoot Mild bimalleolar soft tissue swelling. Vascular calcifications are present. Elbow X-Ray 02/05/18 23:06 IMPRESSION: There is significant soft tissue swelling around the left elbow joint without any acute bony trauma. Degenerative changes are seen around the left elbow joint 2010 [employer]- All Rights Reserved Renal Artery Duplex 02/07/18 07:00 IMPRESSION: NO DOPPLER EVIDENCE OF HEMODYNAMICALLY SIGNIFICANT RENAL ARTERY STENOSIS. NO ABNORMAL SONOGRAPHIC FINDINGS IN THE TRANSPLANT KIDNEY. ENLARGED [place] KIDNEYS WITH MULTIPLE CYSTS SECONDARY TO POLYCYSTIC KIDNEY DISEASE. Assessment & Plan - Diagnosis (1) Acute renal failure Is this a current diagnosis for this admission?: Yes Plan: continue to hold Lasix and benazepril Nephrology following Monitor electrolytes and renal function (2) Cellulitis Qualifiers: Site of cellulitis: extremity Site of cellulitis of extremity: upper extremity Laterality: left Qualified Code(s): L03.114 - Cellulitis of left upper limb Is this a current diagnosis for this admission?: Yes Plan: Shunt was evaluated by orthopedic surgery Recommendation to treat cellulitis Continue vancomycin and cefepime Monitor clinical response Patient is improving (3) Gout Qualifiers: Gout site: elbow Chronicity: acute Laterality: left Is this a current diagnosis for this admission?: Yes Plan: We will continue with prednisone and allopurinol (4) Immunocompromised state due to drug therapy Is this a current diagnosis for this admission?: No (5) Renal transplant, status post Is this a current diagnosis for this admission?: No (6) Hyperkalemia Is this a current diagnosis for this admission?: Yes Plan: Continue to hold benazepril continue to monitor renal function and potassium levels Potassium level is 5.7 today, improved from 5.8 yesterday (7) Hypertension Qualifiers: Hypertension type: essential hypertension Qualified Code(s): I10 - Essential (primary) hypertension Is this a current diagnosis for this admission?: Yes Plan: Will continue clonidine and nifedipine Continue to hold Lasix and benazepril due to increased creatinine and elevated potassium level (8) Bradycardia by electrocardiogram Is this a current diagnosis for this admission?: Yes Plan: Asymptomatic Continue to monitor Normal TSH (9) Anemia Is this a current diagnosis for this admission?: Yes Plan: Positive Hemoccult blood Plans for colonoscopy tomorrow Myoglobin is stable at 7.5 Monitor hemoglobin hematocrit and transfuse if needed
[2018-02-09] MEDS: MULTIVITAMIN TABLET PO SCH (09:48)
[2018-02-09] MEDS: CLONIDINE HCL 0.1 MG TABLET PO SCH ×2 (09:48→21:50)
[2018-02-09] MEDS: PREDNISONE 20 MG TABLET PO SCH ×2 (09:48→17:31)
[2018-02-09] MEDS: MAGNESIUM OXIDE 400 MG TABLET PO SCH ×2 (09:48→21:50)
[2018-02-09] MEDS: CYCLOSPORINE MODIFIED 100 MG PO SCH ×2 (09:49→21:51)
[2018-02-09] MEDS: DOCUSATE SODIUM 100 MG CAPSULE PO SCH ×2 (09:49→17:30)
[2018-02-09] MEDS: ALLOPURINOL 300 MG TABLET PO SCH (09:49)
[2018-02-09] MEDS: MYCOPHENOLATE MOFETIL 250 MG CAPSULE PO SCH ×2 (09:50→21:51)
[2018-02-09] MEDS: NIFEDIPINE 30 MG TAB.ER.24 PO SCH ×2 (09:50→21:52)
[2018-02-09] MEDS: CYCLOSPORINE, MODIFIED 25 MG CAPSULE PO SCH (09:51)
[2018-02-09] MEDS: ATORVASTATIN CALCIUM 20 MG TABLET PO SCH (21:50)
[2018-02-09] MEDS: VANCOMYCIN HCL 1,250 MG in DEXTROSE 5%-WATER 250 ML IV SCH (21:53)
[2018-02-10 06:04] LABS: HEMATOCRIT 24.4 % (37.9-51.0); MEAN CORPUSCULAR HGB CONC 32.6 g/dL (32.0-36.0); MEAN CORPUSCULAR VOLUME 80 fl (80-97); PLATELET COUNT 212 10^3/uL (150-450); RED BLOOD COUNT 3.05 10^6/uL (4.35-5.55); RED CELL DISTRIBUTION WIDTH 14.4 % (11.5-14.0)
[2018-02-10 06:08] LABS: HEMOGLOBIN 7.9 g/dL (13.5-17.0)
[2018-02-10] MEDS: HEPARIN SOD (PORCINE) 5,000 UNIT/ML 1 ML SYRINGE SUBCUT SCH ×3 (06:25→21:57)
[2018-02-10] MEDS: CEFEPIME 1 GM/D5W RTU 1 GM/50 ML RTUPB IV SCH ×2 (06:25→17:21)
[2018-02-10 06:29] LABS: ANION GAP 11 (5-19); BLOOD UREA NITROGEN 25 mg/dL (7-20); CALCIUM 9.5 mg/dL (8.4-10.2); CARBON DIOXIDE 22 mmol/L (22-30); CHLORIDE 109 mmol/L (98-107); GLUCOSE 120 mg/dL (75-110); POTASSIUM 5.1 mmol/L (3.6-5.0); SODIUM 141.5 mmol/L (137-145)
[2018-02-10] MEDS ORDERED: LIDOCAINE 2% INJ-PF (20 MG/ML) 10 ML AMPUL ONE (08:50)
[2018-02-10] MEDS ORDERED: FENTANYL CITRATE INJ/PF 100 MCG/2 ML AMPUL ONE (08:51)
[2018-02-10] MEDS ORDERED: ONDANSETRON HCL INJ/PF 4 MG/2 ML SDV ONE (08:51)
[2018-02-10] MEDS ORDERED: MIDAZOLAM 2 MG/2 ML INJ ONE (08:51)
[2018-02-10] MEDS ORDERED: PROPOFOL INJ 200 MG/20 ML VIAL IV ONE ×2 (08:51→10:58)
--- NOTE | 2018-02-10 09:08 | PDOC PROGRESS REPORT ---
Subjective Progress Note for:: 02/10/18 Subjective:: Patient still has some swelling of the left elbow but he said is not painful anymore Hemoglobin stable at 7.9 Patient is occult blood was positive and scheduled for colonoscopy today Reason For Visit: SEPTIC BURSITIS, RENAL TRANSPLANT C ARF Physical Exam Vital Signs: Temp Pulse Resp BP Pulse Ox 98.2 F 47 L 16 137/69 H 100 02/10/18 04:07 02/10/18 07:00 02/09/18 23:51 02/10/18 04:07 02/10/18 04:07 Intake & Output 02/09/18 02/10/18 02/11/18 06:59 06:59 06:59 Intake Total 1474 1620 Output Total 2050 120 Balance -576 1500 Weight 160 lb 0.889 oz 163 lb 2.273 oz General appearance: PRESENT: no acute distress, well-developed, well-nourished Head exam: PRESENT: atraumatic, normocephalic Eye exam: PRESENT: conjunctiva pink, EOMI, PERRLA. ABSENT: scleral icterus Ear exam: PRESENT: normal external ear exam Mouth exam: PRESENT: moist, tongue midline Neck exam: ABSENT: carotid bruit, JVD, lymphadenopathy, thyromegaly Respiratory exam: PRESENT: clear to auscultation massiel. ABSENT: rales, rhonchi, wheezes Cardiovascular exam: PRESENT: RRR. ABSENT: diastolic murmur, rubs, systolic murmur Pulses: PRESENT: normal dorsalis pedis pul Vascular exam: PRESENT: normal capillary refill GI/Abdominal exam: PRESENT: normal bowel sounds, soft. ABSENT: distended, guarding, mass, organolmegaly, rebound, tenderness Rectal exam: PRESENT: deferred Extremities exam: PRESENT: full ROM. ABSENT: calf tenderness, clubbing, pedal edema Neurological exam: PRESENT: alert, awake, oriented to person, oriented to place , oriented to time, oriented to situation, CN II-XII grossly intact. ABSENT: motor sensory deficit Results Laboratory Results: 02/10/18 04:14 02/10/18 04:14 02/10/18 02/10/18 04:14 04:14 WBC 5.0 RBC 3.05 L Hgb 7.9 L Hct 24.4 L MCV 80 MCH 26.0 L MCHC 32.6 RDW 14.4 H Plt Count 212 Sodium 141.5 Potassium 5.1 H Chloride 109 H Carbon Dioxide 22 Anion Gap 11 BUN 25 H Creatinine 0.89 Est GFR ( Amer) > 60 Est GFR (Non-Af Amer) > 60 Glucose 120 H Calcium 9.5 Impressions: Ankle X-Ray 02/05/18 20:11 FINDINGS/IMPRESSION: Generalized osteopenia is present. No acute fracture or malalignment. Pes planus is present. Ankle mortise is preserved on these nonstress views. Mild degenerative changes of the hindfoot Mild bimalleolar soft tissue swelling. Vascular calcifications are present. Elbow X-Ray 02/05/18 23:06 IMPRESSION: There is significant soft tissue swelling around the left elbow joint without any acute bony trauma. Degenerative changes are seen around the left elbow joint 2010 [employer]- All Rights Reserved Renal Artery Duplex 02/07/18 07:00 IMPRESSION: NO DOPPLER EVIDENCE OF HEMODYNAMICALLY SIGNIFICANT RENAL ARTERY STENOSIS. NO ABNORMAL SONOGRAPHIC FINDINGS IN THE TRANSPLANT KIDNEY. ENLARGED [place] KIDNEYS WITH MULTIPLE CYSTS SECONDARY TO POLYCYSTIC KIDNEY DISEASE. Assessment & Plan - Diagnosis (1) Acute renal failure Is this a current diagnosis for this admission?: Yes Plan: continue to hold benazepril Restart Lasix Nephrology following Monitor electrolytes and renal function (2) Cellulitis Qualifiers: Site of cellulitis: extremity Site of cellulitis of extremity: upper extremity Laterality: left Qualified Code(s): L03.114 - Cellulitis of left upper limb Is this a current diagnosis for this admission?: Yes Plan: Patient was evaluated by orthopedic surgery Recommendation to treat cellulitis Continue vancomycin and cefepime Monitor clinical response Patient is improving (3) Gout Qualifiers: Gout site: elbow Chronicity: acute Laterality: left Is this a current diagnosis for this admission?: Yes Plan: continue with prednisone and allopurinol (4) Immunocompromised state due to drug therapy Is this a current diagnosis for this admission?: No (5) Renal transplant, status post Is this a current diagnosis for this admission?: No (6) Hyperkalemia Is this a current diagnosis for this admission?: Yes Plan: Continue to hold benazepril continue to monitor renal function and potassium levels Potassium level is 5.1 today, improved from 5.7 yesterday (7) Hypertension Qualifiers: Hypertension type: essential hypertension Qualified Code(s): I10 - Essential (primary) hypertension Is this a current diagnosis for this admission?: Yes Plan: Will continue clonidine and nifedipine Continue to hold benazepril due to increased creatinine and elevated potassium level (8) Bradycardia by electrocardiogram Is this a current diagnosis for this admission?: Yes Plan: Heart rate in the high 50s and drops down the high 40s at night He is asymptomatic Continue to monitor Normal TSH Check echocardiogram (9) Anemia Is this a current diagnosis for this admission?: Yes Plan: Positive Hemoccult blood Plans for colonoscopy today Myoglobin is improved at 7.9 today Monitor hemoglobin hematocrit and transfuse if needed
[2018-02-10] MEDS ORDERED: PROMETHAZINE HCL INJ 25 MG/1 ML VIAL IV PRN ×2 (09:26)
[2018-02-10] MEDS ORDERED: MORPHINE SULFATE 10 MG/ML INJ IV PRN (09:26)
[2018-02-10] MEDS ORDERED: FENTANYL CITRATE INJ/PF 100 MCG/2 ML AMPUL IV PRN ×3 (09:26)
[2018-02-10] MEDS ORDERED: ONDANSETRON HCL INJ/PF 4 MG/2 ML SDV IV PRN (09:26)
[2018-02-10] MEDS ORDERED: MEPERIDINE HCL/PF INJ 25 MG/1 ML DISP.SYRIN IV PRN (09:26)
[2018-02-10] MEDS ORDERED: DIPHENHYDRAMINE HCL 50 MG/ML VIAL IV PRN (09:26)
[2018-02-10] MEDS ORDERED: NORMAL SALINE 1000 ML 1,000 ML IV PRN (10:02)
[2018-02-10] MEDS: CYCLOSPORINE MODIFIED 100 MG PO SCH ×2 (14:30→21:57)
[2018-02-10] MEDS: CYCLOSPORINE, MODIFIED 25 MG CAPSULE PO SCH (14:31)
[2018-02-10] MEDS: DOCUSATE SODIUM 100 MG CAPSULE PO SCH ×2 (14:31→17:19)
[2018-02-10] MEDS: MYCOPHENOLATE MOFETIL 250 MG CAPSULE PO SCH ×2 (14:31→21:57)
[2018-02-10] MEDS: CLONIDINE HCL 0.1 MG TABLET PO SCH ×2 (14:31→21:56)
[2018-02-10] MEDS: NIFEDIPINE 30 MG TAB.ER.24 PO SCH ×2 (14:32→21:57)
[2018-02-10] MEDS: MULTIVITAMIN TABLET PO SCH (14:32)
[2018-02-10] MEDS: ALLOPURINOL 300 MG TABLET PO SCH (14:32)
[2018-02-10] MEDS: FUROSEMIDE 20 MG TABLET PO SCH (14:46)
[2018-02-10] MEDS: MAGNESIUM OXIDE 400 MG TABLET PO SCH ×2 (14:47→21:56)
[2018-02-10] MEDS: PREDNISONE 20 MG TABLET PO SCH ×2 (14:47→17:21)
[2018-02-10] MEDS: ATORVASTATIN CALCIUM 20 MG TABLET PO SCH (21:56)
[2018-02-10] MEDS: VANCOMYCIN HCL 1,250 MG in DEXTROSE 5%-WATER 250 ML IV SCH (21:57)
[2018-02-11 06:14] LABS: HEMATOCRIT 27.3 % (37.9-51.0); HEMOGLOBIN 9.1 g/dL (13.5-17.0); MEAN CORPUSCULAR HEMOGLOBIN 26.8 pg (27.0-33.4); MEAN CORPUSCULAR HGB CONC 33.2 g/dL (32.0-36.0); MEAN CORPUSCULAR VOLUME 81 fl (80-97); PLATELET COUNT 244 10^3/uL (150-450); RED BLOOD COUNT 3.38 10^6/uL (4.35-5.55); RED CELL DISTRIBUTION WIDTH 14.4 % (11.5-14.0); WHITE BLOOD COUNT 8.9 10^3/uL (4.0-10.5)
[2018-02-11 06:50] LABS: ANION GAP 8 (5-19); BLOOD UREA NITROGEN 26 mg/dL (7-20); CALCIUM 9.5 mg/dL (8.4-10.2); CARBON DIOXIDE 23 mmol/L (22-30); CHLORIDE 108 mmol/L (98-107); GLUCOSE 163 mg/dL (75-110); POTASSIUM 5.3 mmol/L (3.6-5.0); SODIUM 138.9 mmol/L (137-145)
[2018-02-11] MEDS: HEPARIN SOD (PORCINE) 5,000 UNIT/ML 1 ML SYRINGE SUBCUT SCH (06:53)
[2018-02-11] MEDS: CEFEPIME 1 GM/D5W RTU 1 GM/50 ML RTUPB IV SCH (06:53)
[2018-02-11] MEDS: MULTIVITAMIN TABLET PO SCH (10:05)
[2018-02-11] MEDS: DOCUSATE SODIUM 100 MG CAPSULE PO SCH (10:05)
[2018-02-11] MEDS: CLONIDINE HCL 0.1 MG TABLET PO SCH (10:05)
[2018-02-11] MEDS: PREDNISONE 20 MG TABLET PO SCH (10:06)
[2018-02-11] MEDS: MAGNESIUM OXIDE 400 MG TABLET PO SCH (10:06)
[2018-02-11] MEDS: FUROSEMIDE 20 MG TABLET PO SCH (10:06)
[2018-02-11] MEDS: CYCLOSPORINE, MODIFIED 25 MG CAPSULE PO SCH (10:26)
[2018-02-11] MEDS: CYCLOSPORINE MODIFIED 100 MG PO SCH (10:26)
[2018-02-11] MEDS: MYCOPHENOLATE MOFETIL 250 MG CAPSULE PO SCH (10:26)
[2018-02-11] MEDS: NIFEDIPINE 30 MG TAB.ER.24 PO SCH (11:10)
[2018-02-11] MEDS: ALLOPURINOL 300 MG TABLET PO SCH (11:11)
--- NOTE | 2018-02-11 11:14 | PDOC DISCHARGE SUMMARY ---
General - Admit/Disc Date/PCP Admission Date/Primary Care Provider: 02/06/18 02:27 BAILEE ELKINS MD Discharge Date: 02/11/18 - Discharge Diagnosis (1) Acute gouty arthritis Is this a current diagnosis for this admission?: Yes Summary: Mr. Saleh presented with swelling and pain in his left elbow and also in his left hand acting primarily of the metatarsal phalangeal joints of the second and third digits. He had been treated for a possible infectious bursitis as well as possible gout by being started on allopurinol and Augmentin. After taking the allopurinol for 1 or 2 days his symptoms were substantially worsened and he presented to the ER for additional treatment. Patient was admitted and treated with IV antibiotics utilizing vancomycin but was also given increased dose of prednisone along with his allopurinol and his symptoms resolved very rapidly. It is felt at this time that the patient most likely had acute gouty bursitis and arthritis affecting his left upper extremity which of course would account for his worsening when being started on allopurinol initially and would also account for his lack of response to antibiotic therapy as well as his excellent response to a burst dose of steroid therapy. In the future colchicine would be a better choice for initial treatment of a suspected acute gouty arthritis as allopurinol will worsen symptoms and acute gout if therapy is initiated at the time of the gout flare. (2) Acute renal failure Is this a current diagnosis for this admission?: Yes Summary: Pepe' initial creatinine was 1.9+ and he was treated with IV fluids and supportive cares with a reduction in his creatinine back to his baseline levels of 1.0+. (3) Olecranon bursitis of left elbow Is this a current diagnosis for this admission?: Yes Summary: Mr. Saleh presented with swelling and pain in his left elbow and also in his left hand acting primarily of the metatarsal phalangeal joints of the second and third digits. He had been treated for a possible infectious bursitis as well as possible gout by being started on allopurinol and Augmentin. After taking the allopurinol for 1 or 2 days his symptoms were substantially worsened and he presented to the ER for additional treatment. Patient was admitted and treated with IV antibiotics utilizing vancomycin but was also given increased dose of prednisone along with his allopurinol and his symptoms resolved very rapidly. It is felt at this time that the patient most likely had acute gouty bursitis and arthritis affecting his left upper extremity which of course would account for his worsening when being started on allopurinol initially and would also account for his lack of response to antibiotic therapy as well as his excellent response to a burst dose of steroid therapy. In the future colchicine would be a better choice for initial treatment of a suspected acute gouty arthritis as allopurinol will worsen symptoms and acute gout if therapy is initiated at the time of the gout flare. (4) Chronic blood loss anemia Is this a current diagnosis for this admission?: Yes Summary: Patient's stool was noted to be positive for occult blood and he was subsequently evaluated with a EGD with gastric brushings and a colonoscopy with biopsy. Both pathology results are pending at the time of discharge. (5) Immunocompromised state due to drug therapy Is this a current diagnosis for this admission?: No Summary: Mr. Saleh is status post renal transplant and is on immunosuppressive agents. His immunocompromise status was considered and he was covered with antibiotic therapy until such time as his blood cultures were negative and his clinical response was obviously dramatic due to burst dose steroid usage. He will be returned to home on his usual dose of steroids. - Additional Information Resuscitation Status: Full Code Discharge Diet: Cardiac Discharge Activity: Activity As Tolerated, Balance Activity w/Rest, Walk Frequently Home Medications: Atorvastatin Calcium [Lipitor 20 mg Tablet] 20 mg PO QHS 03/08/17 Benazepril HCl [Lotensin 20 mg Tablet] 20 mg PO Q12 03/08/17 Clonidine HCl [Catapres 0.3 mg Tablet] 0.3 mg PO Q12 03/08/17 Cyclosporine, Modified [Cyclosporine Modified] 25 mg PO DAILY 03/08/17 Cyclosporine, Modified [Cyclosporine Modified] 100 mg PO Q12 03/08/17 Multivitamin [Tab-A-Vilma (Multiple Vitamin) Tablet] 1 tab PO DAILY 03/08/17 Mycophenolate Mofetil [Cellcept 250 mg Capsule] 1,000 mg PO Q12 03/08/17 Nifedipine [Nifedipine ER] 60 mg PO Q12 03/08/17 Allopurinol [Zyloprim 300 mg Tablet] 300 mg PO DAILY 02/06/18 Furosemide [Lasix 40 mg Tablet] 20 mg PO QAM 02/06/18 Magnesium Oxide [Magnesium] 500 mg PO Q12 02/06/18 Prednisone [Deltasone 5 mg Tablet] 5 mg PO DAILY 02/06/18 History of Present Illness Patient complains of: Acute pain and swelling in the left elbow and hand. History of Present Illness: PEPE SALEH is a 67 year old male who presented with swelling and pain in his left elbow and also in his left hand affecting primarily the metatarsal phalangeal joints of the second and third digits. He had been treated for a possible infectious bursitis as well as possible gout by being started on allopurinol and Augmentin. After taking the allopurinol for 1 or 2 days his symptoms were substantially worsened and he presented to the ER for additional treatment. Patient was admitted and treated with IV antibiotics utilizing vancomycin but was also given increased dose of prednisone along with his allopurinol and his symptoms resolved very rapidly. It is felt at this time that the patient most likely had acute gouty bursitis and arthritis affecting his left upper extremity which of course would account for his worsening when being started on allopurinol initially and would also account for his lack of response to antibiotic therapy as well as his excellent response to a burst dose of steroid therapy. In the future colchicine would be a better choice for initial treatment of a suspected acute gouty arthritis as allopurinol will worsen symptoms and acute gout if therapy is initiated at the time of the acute gout flare-up. Additionally during his hospital course Mr. Saleh was noted to have an elevated serum potassium as well as mild acute renal insufficiency both of which resolved with supportive care and intravenous fluid therapy. He was also noted to have a chronic anemia and evaluation for possible GI blood loss was undertaken during this hospital course. Hospital Course Hospital Course: Pepe was admitted and treated with IV antibiotics utilizing vancomycin but was also given increased dose of prednisone along with continuation of his allopurinol and his symptoms resolved very rapidly. It is felt at this time that the patient most likely had acute gouty bursitis and arthritis affecting his left upper extremity which of course would account for his worsening when being started on allopurinol initially and would also account for his lack of response to antibiotic therapy as well as his excellent response to a burst dose of steroid therapy. In the future colchicine would be a better choice for initial treatment of a suspected acute gouty arthritis as allopurinol will worsen symptoms and acute gout if therapy is initiated at the time of the acute gout flare-up. Additionally during his hospital course Mr. Saleh was noted to have an elevated serum potassium as well as mild acute renal insufficiency both of which resolved with supportive care and intravenous fluid therapy. He was also noted to have a chronic anemia and evaluation for possible GI blood loss was undertaken during this hospital course, with an EGD and gastric brushings as well as a colonoscopy with a biopsy. Physical Exam Vital Signs: Temp Pulse Resp BP Pulse Ox 98.3 F 59 L 20 126/63 H 99 02/11/18 07:30 02/11/18 07:30 02/11/18 07:30 02/11/18 07:30 02/11/18 07:30 Intake & Output 02/10/18 02/11/18 02/12/18 06:59 06:59 06:59 Intake Total 1670 1120 Output Total 120 1410 Balance 1550 -290 Weight 74 kg 74 kg General appearance: PRESENT: no acute distress, cooperative Head exam: PRESENT: atraumatic, normocephalic Eye exam: ABSENT: conjunctival injection, scleral icterus Mouth exam: PRESENT: moist, tongue midline Neck exam: ABSENT: thyromegaly, tracheal deviation Respiratory exam: PRESENT: clear to auscultation massiel, symmetrical, unlabored Cardiovascular exam: PRESENT: RRR. ABSENT: clicks, diastolic murmur, gallop, rubs, systolic murmur Vascular exam: PRESENT: normal capillary refill. ABSENT: pallor GI/Abdominal exam: PRESENT: normal bowel sounds, soft Rectal exam: PRESENT: deferred Extremities exam: ABSENT: joint swelling, pedal edema, tenderness Musculoskeletal exam: PRESENT: full ROM, normal inspection Neurological exam: PRESENT: alert, oriented to person, oriented to place, oriented to time, oriented to situation, CN II-XII grossly intact Psychiatric exam: PRESENT: appropriate affect, normal mood Skin exam: ABSENT: jaundice, rash, urticaria Results Laboratory Results: 02/11/18 04:53 02/11/18 04:53 02/11/18 02/11/18 04:53 04:53 WBC 8.9 RBC 3.38 L Hgb 9.1 L Hct 27.3 L MCV 81 MCH 26.8 L MCHC 33.2 RDW 14.4 H Plt Count 244 Sodium 138.9 Potassium 5.3 H Chloride 108 H Carbon Dioxide 23 Anion Gap 8 BUN 26 H Creatinine 1.11 Est GFR ( Amer) > 60 Est GFR (Non-Af Amer) > 60 Glucose 163 H Calcium 9.5 Impressions: Ankle X-Ray 02/05/18 20:11 FINDINGS/IMPRESSION: Generalized osteopenia is present. No acute fracture or malalignment. Pes planus is present. Ankle mortise is preserved on these nonstress views. Mild degenerative changes of the hindfoot Mild bimalleolar soft tissue swelling. Vascular calcifications are present. Elbow X-Ray 02/05/18 23:06 IMPRESSION: There is significant soft tissue swelling around the left elbow joint without any acute bony trauma. Degenerative changes are seen around the left elbow joint 2010 [employer]- All Rights Reserved Renal Artery Duplex 02/07/18 07:00 IMPRESSION: NO DOPPLER EVIDENCE OF HEMODYNAMICALLY SIGNIFICANT RENAL ARTERY STENOSIS. NO ABNORMAL SONOGRAPHIC FINDINGS IN THE TRANSPLANT KIDNEY. ENLARGED TETLIN KIDNEYS WITH MULTIPLE CYSTS SECONDARY TO POLYCYSTIC KIDNEY DISEASE. Qualifiers - * PATIENT BEING DISCHARGED WITH ANY OF THE FOLLOWING DIAGNOSIS: No Plan Discharge Plan: Discharged home in improved and stable condition Time Spent: Greater than 30 Minutes
[2018-02-11 12:17] VITALS: BP 156/70
--- NOTE | 2018-02-16 13:16 | XCELERA REPORT ---
[address] [address] Transthoracic Echocardiogram Report Name: DASHAWN SALEH Age: 67 yrs Gender: Male : 1950 Patient Status: Inpatient Patient Location: [address] [place], [place] [id number] Study Date: 02/10/2018 07:06 PM Height: 73 in Weight: 160 lb BSA: 2.0 m2 Procedure: A two-dimensional transthoracic echocardiogram with color flow and Doppler was performed. The study was technically difficult with many images being suboptimal in quality. Images were not obtained from all of the standard acoustic windows due to the limited scope of the study. Reason For Study: VT History: VENTRICULAR TACHYCARDIA. Ordering Physician: TRUDI WHITING Performed By: Ioana Danielle Interpretation Summary The left ventricle is normal in size. There is normal left ventricular wall thickness. No True apical 2 chamber views obtained.Hence cannot comment on the apical anterior , the basal anterior, the basal inferior and apical inferior north.The mid anterior , the mid inferior and the rest of the LV north contract normally. .Normal LVEF is > than 60% in the limited views. Doppler measurements suggest impaired left ventricular relaxation, which is associated with grade I/IV or mild diastolic dysfunction There is no thrombus. The right ventricle is not well visualized secondary to technical limitations The left atrium is mildly dilated. There is no evidence of mitral valve prolapse. There is a trace amount of mitral regurgitation There is no mitral valve stenosis. There is no aortic valve stenosis There is no LVOT obstruction. There is a mild amount of aortic regurgitation There is no tricuspid stenosis. There is a mild amount of tricuspid regurgitation There is mild pulmonary hypertension by echo RVSP is 38 to 43 mm of Hg , with RA mean of 5 to 10. The pulmonic valve is not well visualized. There is no pulmonic valvular stenosis. There is no pulmonic valvular regurgitation. The inferior vena cava appeared normal and decreased > 50% with respiration (RAP 5-10 mmHg) Small pericardial effusion. There are no echocardiographic or Doppler indications for cardiac tamponade MMode/2D Measurements & Calculations RVDd: 2.9 cm LVIDd: 5.7 cm FS: 34.2 % Ao root diam: 3.3 cm IVSd: 1.2 cm LVIDs: 3.8 cm EDV(Teich): 160.6 ml Ao root area: 8.7 cm2 LVPWd: 1.1 cm ESV(Teich): 60.3 ml LA dimension: 4.1 cm EF(Teich): 62.4 % Doppler Measurements & Calculations MV E max gregory: MV P1/2t max gregory: Ao V2 max: AI max gregory: 63.2 cm/sec 58.4 cm/sec 159.3 cm/sec 153.2 cm/sec MV A max gregory: MV P1/2t: 51.1 msec Ao max PG: AI max P.4 mmHg 79.0 cm/sec MVA(P1/2t): 4.3 cm2 10.1 mmHg AI dec slope: MV E/A: 0.80 MV dec slope: 188.3 cm/sec2 AI P1/2t: 334.4 cm/sec2 238.4 msec MV dec time: 0.22 sec LV V1 max PG: PA V2 max: PI end-d gregory: TR max gregory: 4.0 mmHg 86.0 cm/sec 102.0 cm/sec 286.7 cm/sec LV V1 max: PA max P.0 mmHg TR max P.2 cm/sec 32.9 mmHg AV P1/2t-pr_phl: MV P1/2t-pr_phl: 238.4 msec 51.1 msec Left Ventricle The left ventricle is normal in size. There is normal left ventricular wall thickness. No True apical 2 chamber views obtained.Hence cannot comment on the apical anterior , the basal anterior, the basal inferior and apical inferior north.The mid anterior , the mid inferior and the rest of the LV north contract normally. .Normal LVEF is > than 60% in the limited views. Doppler measurements suggest impaired left ventricular relaxation, which is associated with grade I/IV or mild diastolic dysfunction. There is no thrombus. Right Ventricle The right ventricle is not well visualized secondary to technical limitations. Atria Right atrium not well visualized secondary to technical limitations. The left atrium is mildly dilated. Mitral Valve There is no evidence of mitral valve prolapse. There is no vegetation seen on the mitral valve. There is no mitral valve stenosis. There is a trace amount of mitral regurgitation. Aortic Valve There is no aortic valve stenosis. There is no LVOT obstruction. There is a mild amount of aortic regurgitation. Tricuspid Valve There is no tricuspid stenosis. There is a mild amount of tricuspid regurgitation. There is mild pulmonary hypertension by echo. RVSP is 38 to 43 mm of Hg , with RA mean of 5 to 10. Pulmonic Valve The pulmonic valve is not well visualized. There is no pulmonic valvular stenosis. There is no pulmonic valvular regurgitation. Great Vessels The aortic root is not well visualized but is probably normal size. The inferior vena cava appeared normal and decreased > 50% with respiration (RAP 5-10 mmHg). Effusions Small pericardial effusion. There are no echocardiographic or Doppler indications for cardiac tamponade. : TRUDI WHITING > Joana Sandoval
--- NOTE | 2018-03-12 09:21 | Operative Report ---
Operative Report DATE OF SURGERY: 02/10/18 PREOPERATIVE DIAGNOSIS: Occult GI bleed POSTOPERATIVE DIAGNOSIS: 1. Mild gastritis. 2. Ascending colitis OPERATION: 1. Esophagogastroduodenoscopy. 2. total colonoscopy cecum with photodocumentation. 3. mucosal biopsy of the ascending colon SURGEON: ADEOLA MEZA ANESTHESIA: Moderate Sedation TISSUE REMOVED OR ALTERED: Biopsy ascending colon COMPLICATIONS: None ESTIMATED BLOOD LOSS: Scant INTRAOPERATIVE FINDINGS: See below PROCEDURE: Please note: This second dictation is being performed nearly 1 month after the procedure was performed. An operative note was dictated subsequent to the operation performed on February 10, 2018, however documentation has failed to appear in the system. The patient was taken from the floor to the endoscopy suite on the fifth floor for [facility] where monitoring devices were attached, and appropriate level of conscious sedation was induced. Patient placed in the semirecumbent position left side down right side up. Oral mouthpiece inserted hypopharynx anesthetized with topical lidocaine. Surgical plan surgical timeout conducted. The flexible adult upper endoscope was advanced through the oropharynx, down the esophagus through the stomach and the first and second portions of the duodenum. This was a well tolerated procedure. There was no evidence of tumor , stricture, active bleeding or clots. The scope was withdrawn through the pylorus. There is no evidence of inflammation. In the stomach there was mild diffuse inflammation but no chinyere ulcers tumors or polyps. No evidence of bleeding. The Z line was at approximately 38 cm from the incisor. There was no evidence of stricture or esophagitis. The scope was withdrawn through the rest of the esophagus and no further pathology seen. There was no evidence of esophageal varices. The scope was withdrawn with the patient oropharynx. Tolerated procedure well. Patient was rotated to the left lateral decubitus position. The appropriate level of anesthesia was maintained. A rectal exam was performed. There was no visible or palpable anorectal pathology. The flexible adult colonoscope was advanced to the anorectal canal all the way to the cecum. Appropriate intubation of the cecum revealed the predictable anatomy including orifice of the appendix, and the ileocecal valve. This was an excellent study and a well-prepped bowel. There is no evidence of active bleeding or clots. The scope was withdrawn through the length of the colon, checking the mucosa carefully. There was no evidence of tumor stricture or bleeding. In the right colon there was some inflammation and a random biopsy performed of the mucosa and sent to pathology as right colon biopsy. Bleeding was minimal. The rest of the colon was grossly unremarkable. No other pathology seen. Scope was withdrawn patient's anus. He tolerated procedure well. Discharge instructions provided to the primary care team. Medical management for mild gastritis recommended. Surveillance colonoscopy amended at interval consistent with findings on final pathology.
== END 2018-02-11 14:25 | disposition home or self-care (01) | DRG 557 ==
LOC: ER 19:50 → EH 02-06 02:27 → 4N 02-06 03:40
PROVIDERS: ADMIT Internal Medicine; ATTEND Internal Medicine
PROC: 3E0F73Z Introduction of Anti-inflammatory into Respiratory Tract, Via Natural or Artificial Opening (ICD-10-PCS; 2018-02-06)
PROC: 0DBK7ZX Excision of Ascending Colon, Via Natural or Artificial Opening, Diagnostic (ICD-10-PCS; principal; 2018-02-10 09:30)
PROC: 0DJ08ZZ Inspection of Upper Intestinal Tract, Via Natural or Artificial Opening Endoscopic (ICD-10-PCS; 2018-02-10 09:30)
DX: M70.22 Olecranon bursitis, left elbow (principal); N18.6 End stage renal disease; N17.0 Acute kidney failure with tubular necrosis; Z94.0 Kidney transplant status; I12.0 Hypertensive chronic kidney disease with stage 5 chronic kidney disease or end stage renal disease; L03.114 Cellulitis of left upper limb; Q61.3 Polycystic kidney, unspecified; M10.042 Idiopathic gout, left hand; T45.1X5A Adverse effect of antineoplastic and immunosuppressive drugs, initial encounter; R19.5 Other fecal abnormalities; D50.0 Iron deficiency anemia secondary to blood loss (chronic); M85.80 Other specified disorders of bone density and structure, unspecified site; E78.00 Pure hypercholesterolemia, unspecified; K21.9 Gastro-esophageal reflux disease without esophagitis; K44.9 Diaphragmatic hernia without obstruction or gangrene; Z96.642 Presence of left artificial hip joint; K57.90 Diverticulosis of intestine, part unspecified, without perforation or abscess without bleeding; K64.8 Other hemorrhoids; K63.9 Disease of intestine, unspecified; E87.5 Hyperkalemia; R00.1 Bradycardia, unspecified; K29.70 Gastritis, unspecified, without bleeding; K52.9 Noninfective gastroenteritis and colitis, unspecified; Z82.61 Family history of arthritis; Z79.899 Other long term (current) drug therapy; Z88.8 Allergy status to other drugs, medicaments and biological substances; Z82.49 Family history of ischemic heart disease and other diseases of the circulatory system; Z80.9 Family history of malignant neoplasm, unspecified
CPT/HCPCS: 00813; 36415; 43235; 45380; 80048; 80053; 80202; 82272; 82565; 82607; 82728; 82746; 83010; 83540; 83550; 83605; 83615; 84443; 84550; 85025; 85027; 85045; 85652; 86140; 87040; 88305; 93005; 93010; 93306; 93971; 93975; 99284; J0692; J1644; J1756; J2250; J2405; J2704; J3010; J3370; J3490; J7060; J7502; J7512; J7515; J7517

== ENCOUNTER → 2018-05-20 | Outpatient (CLI) | payer MEDICARE, MEDICAID ==
[2018-05-20 11:19] LABS: ABSOLUTE MONOCYTES (AUTO) 0.3 10^3/uL (0.1-1.4); ABSOLUTE NEUT (AUTO) 3.1 10^3/uL (1.7-8.2); BASOPHILS % (AUTO) 0.7 % (0-2); EOSINOPHILS % (AUTO) 1.1 % (0-6); HEMATOCRIT 28.6 % (37.9-51.0); HEMOGLOBIN 9.4 g/dL (13.5-17.0); LYMPHOCYTES % (AUTO) 22.4 % (13-45); MEAN CORPUSCULAR HEMOGLOBIN 27.1 pg (27.0-33.4); MEAN CORPUSCULAR HGB CONC 32.7 g/dL (32.0-36.0); MEAN CORPUSCULAR VOLUME 83 fl (80-97); MONOCYTES % (AUTO) 5.7 % (3-13); PLATELET COUNT 108 10^3/uL (150-450); RED BLOOD COUNT 3.45 10^6/uL (4.35-5.55); RED CELL DISTRIBUTION WIDTH 15.6 % (11.5-14.0); SEGMENTED NEUTROPHILS % (AUTO) 70.1 % (42-78); TOTAL CELLS COUNTED % (AUTO) 100 %; WHITE BLOOD COUNT 4.4 10^3/uL (4.0-10.5)
[2018-05-20 11:20] LABS: ALANINE AMINOTRANSFERASE 15 U/L (21-72); ANION GAP 8 (5-19); BLOOD UREA NITROGEN 25 mg/dL (7-20); CALCIUM 9.7 mg/dL (8.4-10.2); CARBON DIOXIDE 25 mmol/L (22-30); CHLORIDE 108 mmol/L (98-107); GLUCOSE 97 mg/dL (75-110); POTASSIUM 3.9 mmol/L (3.6-5.0); SODIUM 141.1 mmol/L (137-145); URIC ACID 6.5 mg/dL (3.5-8.5)
[2018-05-20 11:27] LABS: HEMATOCRIT 28.6 % (37.9-51.0); HEMOGLOBIN 9.4 g/dL (13.5-17.0); MEAN CORPUSCULAR HEMOGLOBIN 27.1 pg (27.0-33.4); MEAN CORPUSCULAR HGB CONC 32.7 g/dL (32.0-36.0); MEAN CORPUSCULAR VOLUME 83 fl (80-97); PLATELET COUNT 108 10^3/uL (150-450); RED BLOOD COUNT 3.45 10^6/uL (4.35-5.55); RED CELL DISTRIBUTION WIDTH 15.6 % (11.5-14.0); WHITE BLOOD COUNT 4.4 10^3/uL (4.0-10.5)
[2018-05-20 12:10] LABS: ANION GAP 8 (5-19); BLOOD UREA NITROGEN 25 mg/dL (7-20); CALCIUM 9.7 mg/dL (8.4-10.2); CARBON DIOXIDE 25 mmol/L (22-30); CHLORIDE 108 mmol/L (98-107); GLUCOSE 97 mg/dL (75-110); POTASSIUM 3.9 mmol/L (3.6-5.0); SODIUM 141.1 mmol/L (137-145)
[2018-05-20 12:17] LABS: ALBUMIN 4.3 g/dL (3.5-5.0); PHOSPHORUS 3.8 mg/dL (2.5-4.5)
[2018-05-21 13:57] LABS: CHOLESTEROL 118.32 mg/dL (0-200); TRIGLYCERIDES 41 mg/dL (<150)
[2018-05-21 14:07] LABS: DIRECT LDL 56 mg/dL (<100)
== END ==
LOC: OD 08:17
PROVIDERS: ATTEND Internal Medicine Nephrology
DX: E78.5 Hyperlipidemia, unspecified (principal); I25.10 Atherosclerotic heart disease of native coronary artery without angina pectoris; D64.9 Anemia, unspecified; Z94.0 Kidney transplant status; Z79.899 Other long term (current) drug therapy
CPT/HCPCS: 36415; 80048; 80061; 80069; 80158; 84460; 84550; 85025; 85027

== ENCOUNTER 2018-06-13 08:57 | Outpatient (CLI) | payer MEDICARE, MEDICAID ==
[2018-06-13 09:41] VITALS: BP 137/69
[2018-06-13] MEDS ORDERED: IRON SUCROSE COMPLEX 300 MG in NORMAL SALINE 250 ML IV PRN (10:00)
== END 2018-06-13 11:55 | disposition home or self-care (01) ==
LOC: II 08:57 → 5TH 08:58 → II 11:55
PROVIDERS: ATTEND Internal Medicine Nephrology
PROC: 3E033GC Introduction of Other Therapeutic Substance into Peripheral Vein, Percutaneous Approach (ICD-10-PCS; principal; 2018-06-13)
DX: D50.8 Other iron deficiency anemias (principal)
CPT/HCPCS: 96365; 96366; J1756; J7050

== ENCOUNTER 2018-06-20 08:55 | Outpatient (CLI) | payer MEDICARE, MEDICAID ==
[~2018-06-20 08:55] MED LIST: IRON SUCROSE COMPLEX 300 MG in NORMAL SALINE 250 ML IV PRN
[2018-06-20 09:34] VITALS: BP 132/66
== END 2018-06-20 11:52 | disposition home or self-care (01) ==
LOC: II 08:55 → 5TH 09:33 → II 11:52
PROVIDERS: ATTEND Internal Medicine Nephrology
PROC: 3E033GC Introduction of Other Therapeutic Substance into Peripheral Vein, Percutaneous Approach (ICD-10-PCS; principal; 2018-06-20)
DX: D50.8 Other iron deficiency anemias (principal)
CPT/HCPCS: 96367; J1756; J7050; 96365; 96366

== ENCOUNTER 2018-06-27 08:49 | Outpatient (CLI) | payer MEDICARE, MEDICAID ==
[2018-06-27 09:12] VITALS: BP 164/70
== END 2018-06-27 11:24 | disposition home or self-care (01) ==
LOC: II 08:49 → 5TH 09:46 → II 11:24
PROVIDERS: ATTEND Internal Medicine Nephrology
PROC: 3E033GC Introduction of Other Therapeutic Substance into Peripheral Vein, Percutaneous Approach (ICD-10-PCS; principal; 2018-06-27)
DX: D50.8 Other iron deficiency anemias (principal); N18.9 Chronic kidney disease, unspecified
CPT/HCPCS: 96365; 96366; J1756; J7050

== ENCOUNTER 2018-07-04 08:46 | Outpatient (CLI) | payer MEDICARE, MEDICAID ==
[2018-07-04 09:41] VITALS: BP 127/55
== END 2018-07-04 11:10 | disposition home or self-care (01) ==
LOC: II 08:46 → 5TH 09:24 → II 11:10
PROVIDERS: ATTEND Internal Medicine Nephrology
PROC: 3E033GC Introduction of Other Therapeutic Substance into Peripheral Vein, Percutaneous Approach (ICD-10-PCS; principal; 2018-07-04)
DX: D50.8 Other iron deficiency anemias (principal)
CPT/HCPCS: 96365; 96366; J1756; J7050

== ENCOUNTER → 2018-07-19 | Outpatient (CLI) | payer MEDICARE, MEDICAID ==
[2018-07-19 11:55] LABS: IRON(TIBC) 78.9 ug/dL (49-181)
== END ==
LOC: OD 09:03
PROVIDERS: ATTEND Internal Medicine Nephrology
DX: D64.9 Anemia, unspecified (principal)
CPT/HCPCS: 36415; 82728; 83540; 83550

== ENCOUNTER → 2018-08-18 | Outpatient (CLI) | payer MEDICARE, MEDICAID ==
[2018-08-18 08:59] LABS: MEAN CORPUSCULAR VOLUME 82 fl (80-97); TOTAL CELLS COUNTED % (AUTO) 100 %
[2018-08-18 09:03] LABS: ABSOLUTE EOSINOPHILS # (AUTO) 0.1 10^3/uL (0.0-0.6); ABSOLUTE LYMPHOCYTES (AUTO) 1.2 10^3/uL (0.5-4.7); ABSOLUTE MONOCYTES (AUTO) 0.2 10^3/uL (0.1-1.4); ABSOLUTE NEUT (AUTO) 5.1 10^3/uL (1.7-8.2); BASOPHILS % (AUTO) 0.5 % (0-2); EOSINOPHILS % (AUTO) 1.2 % (0-6); HEMATOCRIT 30.7 % (37.9-51.0); LYMPHOCYTES % (AUTO) 17.9 % (13-45); MEAN CORPUSCULAR HEMOGLOBIN 26.8 pg (27.0-33.4); MEAN CORPUSCULAR HGB CONC 32.6 g/dL (32.0-36.0); MONOCYTES % (AUTO) 3.7 % (3-13); PLATELET COUNT 124 10^3/uL (150-450); RED BLOOD COUNT 3.73 10^6/uL (4.35-5.55); RED CELL DISTRIBUTION WIDTH 14.8 % (11.5-14.0); SEGMENTED NEUTROPHILS % (AUTO) 76.7 % (42-78); WHITE BLOOD COUNT 6.7 10^3/uL (4.0-10.5)
[2018-08-18 09:06] LABS: HEMATOCRIT 30.7 % (37.9-51.0); MEAN CORPUSCULAR HEMOGLOBIN 26.8 pg (27.0-33.4); MEAN CORPUSCULAR HGB CONC 32.6 g/dL (32.0-36.0); MEAN CORPUSCULAR VOLUME 82 fl (80-97); PLATELET COUNT 124 10^3/uL (150-450); RED BLOOD COUNT 3.73 10^6/uL (4.35-5.55); RED CELL DISTRIBUTION WIDTH 14.8 % (11.5-14.0); WHITE BLOOD COUNT 6.7 10^3/uL (4.0-10.5)
[2018-08-18 09:21] LABS: ANION GAP 12 (5-19); BLOOD UREA NITROGEN 28 mg/dL (7-20); CALCIUM 10.3 mg/dL (8.4-10.2); CARBON DIOXIDE 23 mmol/L (22-30); CHLORIDE 108 mmol/L (98-107); GLUCOSE 119 mg/dL (75-110); POTASSIUM 3.8 mmol/L (3.6-5.0); SODIUM 143.1 mmol/L (137-145)
[2018-08-18 09:38] LABS: ANION GAP 12 (5-19); BLOOD UREA NITROGEN 28 mg/dL (7-20); CALCIUM 10.3 mg/dL (8.4-10.2); CARBON DIOXIDE 23 mmol/L (22-30); CHLORIDE 108 mmol/L (98-107); GLUCOSE 119 mg/dL (75-110); POTASSIUM 3.8 mmol/L (3.6-5.0); SODIUM 143.1 mmol/L (137-145)
[2018-08-18 10:08] LABS: ALBUMIN 4.1 g/dL (3.5-5.0); PHOSPHORUS 3.9 mg/dL (2.5-4.5)
== END ==
LOC: OD 07:49
PROVIDERS: ATTEND Internal Medicine Nephrology
DX: N18.3 Chronic kidney disease, stage 3 (moderate) (principal); D63.1 Anemia in chronic kidney disease; E78.5 Hyperlipidemia, unspecified; Z79.899 Other long term (current) drug therapy; Z94.0 Kidney transplant status
CPT/HCPCS: 36415; 80048; 80069; 80158; 85025; 85027

== ENCOUNTER → 2018-11-15 | Outpatient (CLI) | payer MEDICARE, MEDICAID ==
[2018-11-15 09:49] LABS: ABSOLUTE MONOCYTES (AUTO) 0.2 10^3/uL (0.1-1.4); ABSOLUTE NEUT (AUTO) 3.7 10^3/uL (1.7-8.2); BASOPHILS % (AUTO) 0.5 % (0-2); HEMOGLOBIN 9.5 g/dL (13.5-17.0); LYMPHOCYTES % (AUTO) 19.8 % (13-45); MEAN CORPUSCULAR HEMOGLOBIN 26.7 pg (27.0-33.4); MEAN CORPUSCULAR HGB CONC 32.6 g/dL (32.0-36.0); MEAN CORPUSCULAR VOLUME 82 fl (80-97); MONOCYTES % (AUTO) 4.4 % (3-13); PLATELET COUNT 104 10^3/uL (150-450); RED BLOOD COUNT 3.54 10^6/uL (4.35-5.55); RED CELL DISTRIBUTION WIDTH 15.5 % (11.5-14.0); SEGMENTED NEUTROPHILS % (AUTO) 74.3 % (42-78); TOTAL CELLS COUNTED % (AUTO) 100 %
[2018-11-15 10:16] LABS: ALANINE AMINOTRANSFERASE 13 U/L (21-72); ANION GAP 11 (5-19); BLOOD UREA NITROGEN 27 mg/dL (7-20); CARBON DIOXIDE 24 mmol/L (22-30); CHLORIDE 108 mmol/L (98-107); CHOLESTEROL 133.99 mg/dL (0-200); GLUCOSE 95 mg/dL (75-110); POTASSIUM 3.9 mmol/L (3.6-5.0); SODIUM 142.8 mmol/L (137-145); TRIGLYCERIDES 75 mg/dL (<150); URIC ACID 5.2 mg/dL (3.5-8.5)
[2018-11-15 10:26] LABS: DIRECT LDL 58 mg/dL (<100)
== END ==
LOC: OD 08:11
PROVIDERS: ATTEND Family Medicine Geriatric Medicine
DX: M10.9 Gout, unspecified (principal); E78.5 Hyperlipidemia, unspecified; I13.0 Hypertensive heart and chronic kidney disease with heart failure and stage 1 through stage 4 chronic kidney disease, or unspecified chronic kidney disease; N18.3 Chronic kidney disease, stage 3 (moderate); I50.30 Unspecified diastolic (congestive) heart failure
CPT/HCPCS: 36415; 80048; 80061; 84460; 84550; 85025

== ENCOUNTER → 2019-03-11 | Outpatient (CLI) | payer MEDICARE, MEDICAID ==
[2019-03-11 08:43] LABS: ANION GAP 12 (5-19); BLOOD UREA NITROGEN 22 mg/dL (7-20); CALCIUM 9.9 mg/dL (8.4-10.2); CARBON DIOXIDE 22 mmol/L (22-30); CHLORIDE 109 mmol/L (98-107); GLUCOSE 93 mg/dL (75-110); POTASSIUM 3.7 mmol/L (3.6-5.0)
== END ==
LOC: OD 07:52
PROVIDERS: ATTEND Internal Medicine Nephrology
DX: Z48.812 Encounter for surgical aftercare following surgery on the circulatory system (principal); Z94.0 Kidney transplant status
CPT/HCPCS: 36415; 80048

== ENCOUNTER → 2019-06-20 | Outpatient (CLI) | payer MEDICARE, MEDICAID ==
[2019-06-20 09:32] LABS: ALBUMIN 4.1 g/dL (3.5-5.0); ALKALINE PHOSPHATASE 47 U/L (38-126); ANION GAP 10 (5-19); ASPARTATE AMINO TRANSFERASE 25 U/L (17-59); BILIRUBIN,DIRECT 0.1 mg/dL (0.0-0.4); BILIRUBIN,TOTAL 0.6 mg/dL (0.2-1.3); BLOOD UREA NITROGEN 31 mg/dL (7-20); CALCIUM 9.8 mg/dL (8.4-10.2); CARBON DIOXIDE 19 mmol/L (22-30); CHLORIDE 112 mmol/L (98-107); CHOLESTEROL 134.92 mg/dL (0-200); GLUCOSE 95 mg/dL (75-110); POTASSIUM 4.7 mmol/L (3.6-5.0); TOTAL PROTEIN 6.9 g/dL (6.3-8.2); TRIGLYCERIDES 69 mg/dL (<150)
[2019-06-20 09:44] LABS: DIRECT LDL 64 mg/dL (<100)
[2019-06-20 10:18] LABS: ABSOLUTE LYMPHOCYTES (AUTO) 0.8 10^3/uL (0.5-4.7); ABSOLUTE MONOCYTES (AUTO) 0.3 10^3/uL (0.1-1.4); ABSOLUTE NEUT (AUTO) 4.3 10^3/uL (1.7-8.2); BASOPHILS % (AUTO) 0.6 % (0-2); EOSINOPHILS % (AUTO) 0.5 % (0-6); HEMATOCRIT 31.5 % (37.9-51.0); HEMOGLOBIN 10.3 g/dL (13.5-17.0); LYMPHOCYTES % (AUTO) 14.7 % (13-45); MEAN CORPUSCULAR HEMOGLOBIN 27.4 pg (27.0-33.4); MEAN CORPUSCULAR HGB CONC 32.7 g/dL (32.0-36.0); MEAN CORPUSCULAR VOLUME 84 fl (80-97); MONOCYTES % (AUTO) 5.8 % (3-13); PLATELET COUNT 107 10^3/uL (150-450); RED BLOOD COUNT 3.76 10^6/uL (4.35-5.55); RED CELL DISTRIBUTION WIDTH 14.7 % (11.5-14.0); SEGMENTED NEUTROPHILS % (AUTO) 78.4 % (42-78); TOTAL CELLS COUNTED % (AUTO) 100 %; WHITE BLOOD COUNT 5.4 10^3/uL (4.0-10.5)
== END ==
LOC: OD 08:17
PROVIDERS: ATTEND Family Medicine Geriatric Medicine
DX: I12.9 Hypertensive chronic kidney disease with stage 1 through stage 4 chronic kidney disease, or unspecified chronic kidney disease (principal); N18.9 Chronic kidney disease, unspecified; E78.5 Hyperlipidemia, unspecified; Z79.899 Other long term (current) drug therapy
CPT/HCPCS: 36415; 80053; 80061; 85025

== ENCOUNTER → 2019-12-26 | Outpatient (CLI) | payer MEDICARE, MEDICAID ==
[2019-12-26 11:06] LABS: ABSOLUTE LYMPHOCYTES (AUTO) 0.7 10^3/uL (0.5-4.7); ABSOLUTE MONOCYTES (AUTO) 0.3 10^3/uL (0.1-1.4); ABSOLUTE NEUT (AUTO) 4.3 10^3/uL (1.7-8.2); BASOPHILS % (AUTO) 0.4 % (0-2); EOSINOPHILS % (AUTO) 0.9 % (0-6); HEMATOCRIT 31.1 % (37.9-51.0); HEMOGLOBIN 10.1 g/dL (13.5-17.0); LYMPHOCYTES % (AUTO) 13.6 % (13-45); MEAN CORPUSCULAR HEMOGLOBIN 27.2 pg (27.0-33.4); MEAN CORPUSCULAR HGB CONC 32.5 g/dL (32.0-36.0); MEAN CORPUSCULAR VOLUME 84 fl (80-97); MONOCYTES % (AUTO) 5.2 % (3-13); RED BLOOD COUNT 3.71 10^6/uL (4.35-5.55); RED CELL DISTRIBUTION WIDTH 15.9 % (11.5-14.0); SEGMENTED NEUTROPHILS % (AUTO) 79.9 % (42-78); TOTAL CELLS COUNTED % (AUTO) 100 %; WHITE BLOOD COUNT 5.4 10^3/uL (4.0-10.5)
[2019-12-26 11:59] LABS: PLATELET COUNT 87 10^3/uL (150-450)
== END ==
LOC: OD 10:18
PROVIDERS: ATTEND Family Medicine Geriatric Medicine
DX: D64.9 Anemia, unspecified (principal); D69.6 Thrombocytopenia, unspecified
CPT/HCPCS: 36415; 85025

== ENCOUNTER 2020-03-17 08:11 | Outpatient (CLI) | payer MEDICARE, MEDICAID ==
[~2020-03-17 08:11] MED LIST changes: +FERRIC CARBOXYMALTOSE 750 MG in NORMAL SALINE 100 ML IV PRN; -IRON SUCROSE COMPLEX 300 MG in NORMAL SALINE 250 ML IV PRN
[2020-03-17 08:39] VITALS: BP 161/81
== END 2020-03-17 10:01 | disposition home or self-care (01) ==
LOC: II 08:11 → 5TH 08:16 → II 10:01
PROVIDERS: ATTEND Physician Assistant Medical
DX: D50.8 Other iron deficiency anemias (principal)
CPT/HCPCS: 96365; J7050; J1439

== ENCOUNTER 2020-03-24 07:55 | Outpatient (CLI) | payer MEDICARE, MEDICAID ==
[~2020-03-24 07:55] MED LIST changes: -FERRIC CARBOXYMALTOSE 750 MG in NORMAL SALINE 100 ML IV PRN; +FERRIC CARBOXYMALTOSE 750 MG in NORMAL SALINE 250 ML IV PRN
[2020-03-24 08:59] VITALS: BP 144/73
--- OUTSIDE RECORDS SUMMARY | 2020-03-25 15:00 | XMS REPORT ---
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 Clinician (SIG) Name Name lansoprazol 2017-05 Yes 15mg Q24H Take 15 mg e 1-01 by mouth (PREVACID) 15:01: once daily [address] 39 as needed capsule magnesium 2017-05 Yes 250mg Q.5D Take 250 oxide 250 1-01 mg by mg Tab 15:01: mouth 2 39 (two) times daily multivitami 2017-05 Yes QD Take by n-lutein 1-01 mouth once (MULTIVITAM 14:58: daily IN 50 PLUS) 22 tablet allopurinol 2017-05 Yes 100mg QD Take 100 (ZYLOPRIM) 1-01 mg by 100 MG 14:54: mouth once tablet 58 daily gabapentin 2017-05 Yes 300mg QD Take 300 (NEURONTIN) 0-31 mg by 300 MG 00:00: mouth capsule 00 nightly FUROsemide Yes 40mg QD Take 40 mg (LASIX) 40 9-29 by mouth MG tablet 00:00: once daily 00 atorvastati Yes n (LIPITOR) 8-09 20 MG 00:00: tablet 00 mycophenola Yes te 8-03 (CELLCEPT) 00:00: 250 mg 00 capsule potassium Yes chloride 7-08 (K-DUR,KLOR 00:00: -CON) 20 00 MEQ CR tablet cloNIDine Yes (CATAPRES) 7-08 0.3 MG 00:00: tablet 00 predniSONE Yes (DELTASONE) 704 5 MG tablet 00:00: 00 amoxicillin Yes (AMOXIL) 6-13 500 MG 00:00: capsule 00 oxyCODONE-a Yes cetaminophe 6-11 n 00:00: (PERCOCET) 00 5-325 mg tablet cycloSPORIN Yes E modified 07 (NEORAL) 25 00:00: MG capsule 00 niFEdipine Yes (PROCARDIA- 10-13 XL) 30 MG 00:00: (OSM) XL 00 tablet atorvastati Yes n (LIPITOR) 10-13 10 MG 00:00: tablet 00 cycloSPORIN Yes E modified 10-13 (NEORAL) 00:00: 100 MG 00 capsule benazepril Yes (LOTENSIN) 10-13 20 MG 00:00: tablet 00 Atorvastati Yes 1 n Calcium Benazepril Yes 1 HCl CellCept Yes 1 cloNIDine Yes 1 HCl CVS Daily Yes 1 Multiple cycloSPORIN Yes 1 E Feosol Yes 1 Furosemide Yes 1 Nifedical Yes 1 XL Allopurinol Yes 1 Problems This patient has no known problems. Procedures Procedure Date / Time Performed Performing Clinician Dex e PROTEIN/CREATININE RATIO, RANDOM 2018-03-13 14:13:00 Jovanni Vela URINE URINALYSIS COMPLETE 2018-03-13 14:13:00 Jeffrey Vela RENAL FUNCTION PANEL (RFP) 2018-03-13 14:01:00 Jeffrey Vela COMPLETE BLOOD COUNT (CBC) 2018-03-13 14:01:00 Jeffrey Vela BK VIRUS, PCR, QUANTITATIVE, PLASMA 2018-03-13 14:01:00 Jeffrey Vela CYCLOSPORINE A (CSA) 2018-03-13 14:01:00 Jeffrey Vela Kidney Transplant hernia repair Results Test Description Test Time Test Comments Text Results Atomic Results Result Comments BK Virus, PCR, Quantitative, Plasma 2018-03-14 13:47:00 Test Item Value Reference Range Comments BK Virus DNA Quant PCR (test code = 92401787) Not Detected No t Detected TOMASZ (test code = TOMASZ) Lab Interpretation (test code = 70477-1) Normal Cyclosporine A (CSA)2018-03-13 21:04:00 Test Item Value Reference Range Comments Cyclosporine A (CSA) (test code = 33235407) 64 ng/mL 100- 300 TOMASZ (test code = TOMASZ) Lab Interpretation (test code = 66377-1) Abnormal Protein/Creatinine Ratio, Random [id number] 17:24:00 Test Item Value Reference Range Comments Protein, Total, Random Urine (test code = 2888-6) 19 mg/dL <12 Creatinine, Random Urine (test code = 2161-8) 94 mg/dL Total Protein/Creatinine Ratio (test code = 202 mg/g <200 65916835) TOMASZ (test code = TOMASZ) Lab Interpretation (test code = 96638-6) Abnormal Urinalysis [id number] 16:42:00 Test Item Value Reference Range Comments Color (test code = 5778-6) Yellow Colorless, Straw, Lig ht Yellow, Yellow, Dark Yellow Clarity (test code = 40291-9) Clear Clear Specific Lug[place] (test code = 1.013 1.005-1.030 2965-2) pH, Urine (test code = 2756-5) 7.0 5.0-8.0 Protein, Urinalysis (test code = Trace Negative 2887-8) Glucose, Urinalysis (test code = Negative Negative 2349-9) Ketones, Urinalysis (test code = Negative Negative 71139-5) Blood, Urinalysis (test code = Negative Negative 63421-2) Nitrite, Urinalysis (test code = Negative Negative 27680-4) Leukocytes, Urinalysis (test code = Negative Negative 50151-3) Bilirubin, Urinalysis (test code = Negative Negative 1976-8) Urobilinogen, Urinalysis (test code 0.2 mg/dL 0.2-1 = 3107-0) Red Blood Cells, Urinalysis (test 1 <=3 /hpf code = 35815-9) WBC, UA (test code = 5821-4) 1 <=5 /hpf Squamous Epithelial Cells, 0 /hpf Urinalysis (test code = 83376-1) Hyaline Casts (test code = 03507483) 1 /lpf Bacteria, Urinalysis (test code = 0-5 0- 5 /hpf 5769-5) Lab Interpretation (test code = Abnormal 23559-5) Complete Blood Count (CBC)2018-03-13 15:24:00 Test Item Value Reference Range Comments WBC (White Blood Cell Count) (test code = 6.7 3.2- 9.8 x10 9 00254-3) /L Hemoglobin (test code = 718-7) 8.7 g/dL 13.7-17.3 Hematocrit (test code = 4544-3) 29.2 % 39-49 Platelets (test code = 91432-2) 142 150- 450 x10 9 /L MCV (Mean Corpuscular Volume) (test code = 87 fL 80-98 787-2) MCH (Mean Corpuscular Hemoglobin) (test code = 26.0 pg 2 6.5-34 785-6) MCHC (Mean Corpuscular Hemoglobin 29.8 % 31.5-36.3 Concentration) (test code = 786-4) RBC (Red Blood Cell Count) (test code = 3.35 4.37- 5.74 x10 1 03673-8) 2/L RDW-CV (Red Cell Distribution Width) (test 15.4 % 11.5- 14.5 code = 81252-8) NRBC (Nucleated Red Blood Cell Count) (test 0.00 0 x10 9 code = 14719-1) /L NRBC % (Nucleated Red Blood Cell %) (test code 0.0 % = 66365-3) MPV (Mean Platelet Volume) (test code = 13.3 fL 7.2-11.7 83476442) Lab Interpretation (test code = 92904-9) Abnormal Renal Function Panel (RFP)2018-03-13 14:50:00 Test Item Value Reference Range Comments Sodium (test code = 2951-2) 137 mmol/L 135-145 Potassium (test code = 2823-3) 5.0 mmol/L 3.5-5 Chloride (test code = 2075-0) 105 mmol/L 98-108 Carbon Dioxide (CO2) (test 21 mmol/L 21-30 code = 8-9) Urea Nitrogen (BUN) (test code 36 mg/dL 7-20 = 3094-0) Creatinine (test code = 1.7 mg/dL 0.6-1.3 2160-0) Calcium (test code = 04331-0) 9.7 mg/dL 8.7-10.2 Phosphorus (test code = 3.7 mg/dL 2.3-4.5 2777-1) Albumin (test code = 1751-7) 4.0 g/dL 3.5-4.8 Glomerular Filtration Rate 49 mL/min/1.73sq m Inter pretive Ranges for (eGFR), MDRD Estimate (test Laila ents with Chronic Kidney code = 62954-4) Disease: eGFR:?> 60 mL/min - Normal eGFR:?30 - 59 mL/min - Moderately Dec reased eGFR:?15 - 29 mL /min - Severely Decreas ed eGFR:?< 15 mL/min -?Kidn ey Failure Note: These GFR calculations do not apply in acute situations when GFR is changing rapidly or in patients on dial ysis. Glucose (test code = 2345-7) 138 mg/dL 70-140 Int erpretive Data: Please note that the ab ove listed reference range? for NONFASTING GLUCO SE levels only. FASTING GL UCOSE reference ranges are shown below:? FASTING GLUCOSE REFERENCE RANGE? ? NORMAL:? 70 - 99?mg/dL? P REDIABETES:? 100 - 125 mg/dL? DIABETES:?> 125? mg/dL Anion Gap (test code = 11 mmol/L -12 82084-6) BUN/CREA Ratio (test code = 21 <30 [id number]) Lab Interpretation (test code Abnormal = 47172-3) Encounters Start End Encounter Admission Attending Care Care Encounter Date/Time Date/Time Type Type Clinicians Facility Department ID 2020-03-08 2020-03-08 Outpatient Archana Olegario Melvin n [id number] 00:00:00 00:00:00 Marjorie valadez [facility] Medical Oncology Oncology [facility] 2020-02-26 2020-02-26 Outpatient Olegario Melvin n [id number] 00:00:00 00:00:00 [facility] Medical Oncology Oncology [facility] 2019-12-30 2019-12-30 Outpatient Olegario Melvin n [id number] 00:00:00 00:00:[address] [facility] Oncology Oncology [facility] 2018-03-18 2018-03-18 Outpatient MELBA MELBA [id number] 00:00:00 00:00:00 2018-03-13 2018-03-[address] [facility] [id number] 13:37:36 17:19:35 2018-03-13 2018-03-13 Outpatient SHAUN VELA [facility] [id number] 13:37:36 17:19:35 JEFFREY Plan of Treatment Planned Activity Planned Date Details Comments Future Scheduled Test [code = ] Future Scheduled Test [code = ] Future Scheduled Test [code = ] Future Scheduled Test [code = ] Future Scheduled Test [code = ] Future Scheduled Test [code = ] Future Scheduled Test [code = ] Future Scheduled Test [code = ] Future Scheduled Test [code = ] Future Scheduled Test [code = ] Future Scheduled Test [code = ] Future Scheduled Test [code = ] Future Scheduled Test [code = ] Social History Social Habit Start Date Stop Date Comments Cigarettes smoked current (pack per 2018-03-13 00:00:00 00:00:00 day) - Reported Cigarette pack-years 2018-03-13 00:00:00 2018-03-13 00:00:00 Alcohol Comment 2018-03-13 00:00:00 2018-03-13 00:00:00 Smoking Status Start Date Stop Date Yes - but quit (former) 2020-03-07 08:44:41 2020-03-07 08:44 :41 History of tobacco use 1975-[birth year]-13 00:00: 00 Social History Observation Description Sex Male Vital Signs Vital Name Observation Time Observation Value Comments Systolic blood pressure 2018-03-13 14:40:00 139 mm[Hg] Diastolic blood pressure 2018-03-13 14:40:00 78 mm[Hg] Heart rate 2018-03-13 14:40:00 76 /min Body temperature 2018-03-13 14:40:00 36.89 Susana Respiratory rate 2018-03-13 14:40:00 18 /min Body height 2018-03-13 14:40:00 180.3 cm Body weight 2018-03-13 14:40:00 77 kg BMI 2018-03-13 14:40:00 23.68 kg/m2 Systolic blood pressure 2018-03-13 14:40:00 139 mm[Hg] Diastolic blood pressure 2018-03-13 14:40:00 78 mm[Hg] Heart rate 2018-03-13 14:40:00 76 /min Body temperature 2018-03-13 14:40:00 36.89 Susana Respiratory rate 2018-03-13 14:40:00 18 /min Body height 2018-03-13 14:40:00 180.3 cm Body weight 2018-03-13 14:40:00 77 kg BMI 2018-03-13 14:40:00 23.68 kg/m2 Hospital Discharge Instructions Patient Instructions Jeffrey Vela MD - 03/13/2018 2:00 PM EDT Labs have continued to look good and your kidney function is very stable. Lab Results Component Value Date CREATININE 1.7 (H) 03/13/2018 BUN 36 (H) 03/13/2018 NA 137 03/13/2018 K 5.0 03/13/2018 CL 105 03/13/2018 CO2 21 03/13/2018 Kidney function is nearly identical to what we have seen over the last years. Continue current immune suppression. We continue to see you on a yearly basis or sooner if Dr. Luciano desires. in this encounter
== END 2020-03-24 09:00 | disposition home or self-care (01) ==
LOC: II 07:55 → 5TH 07:56 → II 09:00
PROVIDERS: ATTEND Physician Assistant Medical
DX: D50.8 Other iron deficiency anemias (principal)
CPT/HCPCS: 96365; J7050; J1439

== ENCOUNTER → 2020-04-09 | Outpatient (CLI) | payer MEDICARE, MEDICAID ==
[2020-04-09 10:09] LABS: ABSOLUTE LYMPHOCYTES (AUTO) 0.8 10^3/uL (0.5-4.7); ABSOLUTE MONOCYTES (AUTO) 0.3 10^3/uL (0.1-1.4); ABSOLUTE NEUT (AUTO) 3.9 10^3/uL (1.7-8.2); BASOPHILS % (AUTO) 0.5 % (0-2); EOSINOPHILS % (AUTO) 0.5 % (0-6); HEMATOCRIT 33.2 % (37.9-51.0); HEMOGLOBIN 10.7 g/dL (13.5-17.0); LYMPHOCYTES % (AUTO) 14.8 % (13-45); MEAN CORPUSCULAR HEMOGLOBIN 27.2 pg (27.0-33.4); MEAN CORPUSCULAR HGB CONC 32.2 g/dL (32.0-36.0); MEAN CORPUSCULAR VOLUME 84 fl (80-97); MONOCYTES % (AUTO) 6.6 % (3-13); RED BLOOD COUNT 3.93 10^6/uL (4.35-5.55); SEGMENTED NEUTROPHILS % (AUTO) 77.6 % (42-78); TOTAL CELLS COUNTED % (AUTO) 100 %; WHITE BLOOD COUNT 5.1 10^3/uL (4.0-10.5)
[2020-04-09 10:32] LABS: ALKALINE PHOSPHATASE 62 U/L (38-126); ANION GAP 11 (5-19); ASPARTATE AMINO TRANSFERASE 23 U/L (17-59); BILIRUBIN,DIRECT 0.3 mg/dL (0.0-0.4); BILIRUBIN,TOTAL 0.7 mg/dL (0.2-1.3); BLOOD UREA NITROGEN 25 mg/dL (7-20); CALCIUM 9.2 mg/dL (8.4-10.2); CARBON DIOXIDE 20 mmol/L (22-30); CHLORIDE 114 mmol/L (98-107); CHOLESTEROL 130.76 mg/dL (0-200); GLUCOSE 93 mg/dL (75-110); POTASSIUM 3.9 mmol/L (3.6-5.0); TRIGLYCERIDES 96 mg/dL (<150); URIC ACID 8.2 mg/dL (3.5-8.5)
[2020-04-09 10:42] LABS: DIRECT LDL 50 mg/dL (<100)
[2020-04-09 10:55] LABS: PLATELET COUNT 91 10^3/uL (150-450)
== END ==
LOC: OD 08:47
PROVIDERS: ATTEND Family Medicine Geriatric Medicine
DX: I10 Essential (primary) hypertension (principal); Z79.899 Other long term (current) drug therapy
CPT/HCPCS: 36415; 80053; 80061; 84550; 85025